=== PATIENT | female | born 1985 ===

== ENCOUNTER 2016-12-29 10:04 | Emergency (ER) | payer OTHER ==
[2016-12-29 10:12] VITALS: BP 110/75; PULSE 74; RESP 14; TEMP 98; O2SAT 98
--- NOTE | 2016-12-29 11:22 | C.PDOC ---
History Of Present Illness 31 y.o female complains of sustaining laceration to left index finger this morning on edge of broken glass. Denies any foreign body sensation, numbness, and bleeding was controlled. Tetanus is not UTD. Time Seen by Provider: 12/29/16 11:02 Chief Complaint (Nursing): Abnormal Skin Integrity History Per: Patient History/Exam Limitations: no limitations Onset/Duration Of Symptoms: Sudden Onset Past Medical History Reviewed: Historical Data, Nursing Documentation, Vital Signs Vital Signs: Last Vital Signs Temp 98 F 12/29/16 10:08 Pulse 74 12/29/16 10:08 Resp 14 12/29/16 10:08 BP 110/75 12/29/16 10:08 Pulse Ox 98 12/29/16 11:22 - Medical History PMH: No Chronic Diseases Family History: States: Unknown Family Hx - Social History Hx Alcohol Use: No Hx Substance Use: No - Immunization History Hx Tetanus Toxoid Vaccination: No Review Of Systems Except As Marked, All Systems Reviewed And Found Negative. Skin: Positive for: Other (laceration) Physical Exam - Physical Exam Appears: Non-toxic, No Acute Distress Skin: Warm, Dry, Other (1cm curved superficial laceration to left second digit fingertip, no active bleeding) Head: Atraumatic, Normacephalic Eye(s): bilateral: Normal Inspection, EOMI Neck: Normal ROM Extremity: Normal ROM, No Tenderness, No Deformity, No Swelling Neurological/Psych: Oriented x3, Normal Speech Gait: Steady ED Course And Treatment O2 Sat by Pulse Oximetry: 98 Laceration - Laceration Repair finger laceration Wound Length (In cm): 1 Description Of Wound: Clean Wound Cleansed With: Sterile Saline Wound Closure: Skin Glue (dermabond) Wound Complexity: Simple Disposition Counseled Patient/Family Regarding: Need For Followup - Disposition Disposition: HOME/ ROUTINE Disposition Time: 11:21 Condition: STABLE Instructions: Skin Adhesive Care (ED) Print Language: LATVIAN - USSANA Present On Arrival: None - Clinical Impression Clinical Impression: Finger laceration
== END 2016-12-29 11:30 | disposition home or self-care (01) ==
LOC: C.ER 10:04
DX: S61.211A Laceration without foreign body of left index finger without damage to nail, initial encounter (principal); W25.XXXA Contact with sharp glass, initial encounter; Y93.89 Activity, other specified; Y92.000 Kitchen of unspecified non-institutional (private) residence as the place of occurrence of the external cause

== ENCOUNTER 2017-03-12 16:12 | Emergency (ER) | payer OTHER ==
[2017-03-12] MEDS ORDERED: Sodium Chloride 0.9% 1,000 ML IV ONE (17:07)
[2017-03-12 17:40] LABS: HCG,QUALITATIVE URINE NEGATIVE (NEGATIVE)
[2017-03-12 17:40] LABS: BASO # 0.1 K/uL (0.0-0.2); BASO % 0.6 % (0.0-2.0); EOS # 0.1 K/uL (0.0-0.7); EOS % 1.1 % (0.0-4.0); HEMOGLOBIN 13.1 g/dL (11.0-16.0); LYMPH # 1.9 K/uL (1.0-4.3); LYMPH % 21.6 % (20.0-40.0); MEAN CELL VOLUME 87.6 fL (81.0-99.0); MEAN CORPUSCULAR HEMOGLOBIN 29.1 pg (27.0-31.0); MEAN CORPUSCULAR HGB CONC 33.2 g/dL (33.0-37.0); MEAN PLATELET VOLUME 10.7 fL (7.2-11.7); MONO # 0.4 K/uL (0.0-0.8); MONO % 4.8 % (0.0-10.0); NEUT # 6.4 K/uL (1.8-7.0); NEUT % 71.9 % (50.0-75.0); RBC 4.48 Mil/uL (3.80-5.20); RED CELL DISTRIBUTION WIDTH 12.9 % (11.5-14.5); WHITE BLOOD COUNT 8.9 K/uL (4.8-10.8)
[2017-03-12 17:41] LABS: BARBITURATES, UR NEGATIVE (NEGATIVE)
[2017-03-12 17:42] LABS: BENZODIAZEPINES, UR NEGATIVE (NEGATIVE)
[2017-03-12 17:43] LABS: SQUAMOUS EPITHIAL 1 /hpf (0-5); URINE BACTERIA RARE (<OCC); URINE BILIRUBIN NEGATIVE (NEGATIVE); URINE BLOOD NEGATIVE (NEGATIVE); URINE CLARITY Clear (Clear); URINE COLOR Yellow (YELLOW); URINE GLUCOSE (UA) NORMAL (Normal); URINE LEUKOCYTE ESTERASE NEG Leu/uL (Negative); URINE NITRATE NEGATIVE (NEGATIVE); URINE PROTEIN NEGATIVE (NEGATIVE); URINE UROBILINOGEN NORMAL mg/dL (0.2-1.0)
[2017-03-12 17:44] LABS: OPIATES, UR NEGATIVE (NEGATIVE)
[2017-03-12 17:45] LABS: PHENCYCLIDINE, UR NEGATIVE (NEGATIVE)
[2017-03-12 17:49] LABS: ALBUMIN 4.3 g/dL (3.5-5.0)
[2017-03-12 17:51] LABS: GFR AFRICAN-AMERICAN > 60; GFR NON-AFRICAN AMERICAN 59
[2017-03-12 17:52] LABS: ALB/GLOB RATIO 1.2 (1.0-2.1); ALT/SGPT 30 U/L (9-52); AST/SGOT 22 U/L (14-36); BLOOD UREA NITROGEN 16 mg/dL (7-17); CALCIUM 9.1 mg/dl (8.6-10.4); LIPASE 57 U/L (23-300)
--- NOTE | 2017-03-12 18:13 | C.PDOC ---
History Of Present Illness 31 y/o female presents to the emergency department with complaints of abdominal cramping and diarrhea which onset this morning. Pt did not take any medications for the pain. Denies fever, chills, abnormal vaginal bleeding, vomiting or any other complaints. She denies consumption of any unusual foods. Time Seen by Provider: 03/12/17 17:01 Chief Complaint (Nursing): Abdominal Pain History Per: Patient History/Exam Limitations: no limitations Onset/Duration Of Symptoms: Hrs Current Symptoms Are (Timing): Still Present Severity: Moderate Location Of Pain/Discomfort: Diffuse Quality Of Discomfort: Cramping Associated Symptoms: Diarrhea. denies: Fever, Chills, Nausea, Vomiting Exacerbating Factors: None Alleviating Factors: None Recent travel outside of the [place]: No Abnormal Vaginal Bleeding: No Past Medical History Reviewed: Historical Data, Nursing Documentation, Vital Signs Vital Signs: Last Vital Signs Temp 98.2 F 03/12/17 16:18 Pulse 82 03/12/17 16:18 Resp 20 03/12/17 16:18 BP 117/82 03/12/17 16:18 Pulse Ox 100 03/12/17 18:15 Family History: States: Unknown Family Hx - Social History Hx Alcohol Use: No Hx Substance Use: No - Immunization History Hx Tetanus Toxoid Vaccination: No Hx Influenza Vaccination: No Hx Pneumococcal Vaccination: No Review Of Systems Except As Marked, All Systems Reviewed And Found Negative. Constitutional: Negative for: Fever, Chills Cardiovascular: Negative for: Chest Pain Respiratory: Negative for: Shortness of Breath Gastrointestinal: Positive for: Abdominal Pain, Diarrhea. Negative for: Nausea , Vomiting Genitourinary: Negative for: Vaginal Bleeding Physical Exam - Physical Exam Appears: Non-toxic, No Acute Distress Skin: Warm, Dry, No Rash Head: Atraumatic, Normacephalic Oral Mucosa: Moist Neck: Normal, Normal ROM, Supple Chest: Symmetrical Cardiovascular: Rhythm Regular Respiratory: Normal Breath Sounds, No Rales, No Rhonchi, No Wheezing Gastrointestinal/Abdominal: Soft, Tenderness (left abdominal), No Guarding, No Rebound Extremity: Normal ROM Extremity: Bilateral: Atraumatic ED Course And Treatment - Laboratory Results Result Diagrams: 03/12/17 17:32 03/12/17 17:32 Lab Interpretation: Normal (ua neg.) Urine POC: Negative O2 Sat by Pulse Oximetry: 100 (room air) Pulse Ox Interpretation: Normal - Radiology CXR: Interpreted by Me CXR Interpretation: Yes: No Acute Disease - Other Rad abd x 2 X-Ray: Interpreted by Me (normal stool/gas, few fluid/gas filled small bowel loops c/w enteritis.) Progress Note: Plan: labs, XR obstructive series, UA, IV fluids, toradol Reevaluation Time: 18:16 Reassessment Condition: Improved Medical Decision Making Medical Decision Making: diarrhea related to last night's dinner/salad, no other sick contacts. Disposition Doctor Will See Patient In The: Office Counseled Patient/Family Regarding: Studies Performed, Diagnosis - Disposition Disposition: HOME/ ROUTINE Disposition Time: 18:16 Condition: GOOD Forms: [facility] (French) - Clinical Impression Clinical Impression: Colicky periumbilical abdominal pain, Diarrhea - Scribe Statement The provider has reviewed the documentation as recorded by the Mervat Curtis Provider Attestation: All medical record entries made by the Indiaibbell were at my direction and personally dictated by me. I have reviewed the chart and agree that the record accurately reflects my personal performance of the history, physical exam, medical decision making, and the department course for this patient. I have also personally directed, reviewed, and agree with the discharge instructions and disposition.
[2017-03-12 18:37] VITALS: BP 108/65; PULSE 80; RESP 18; TEMP 98.3; O2SAT 97
--- NOTE | 2017-03-12 18:40 | RAD ---
PROCEDURE: Radiographs of the chest and abdomen (obstructive series) HISTORY: abd pain COMPARISON: None available. FINDINGS: CHEST: The cardiomediastinal silhouette appears within normal limits. No focal consolidation, significant pleural effusion, or definite pneumothorax identified.Please note that chest x-ray has limited sensitivity for the detection of pulmonary masses. ABDOMEN AND PELVIS: Nonobstructive bowel gas pattern. No definite free air. Mild constipation. No acute osseous abnormality is detected. IMPRESSION: Mild constipation.
== END 2017-03-12 18:39 | disposition home or self-care (01) ==
LOC: C.ER 16:12
DX: R10.84 Generalized abdominal pain (principal); R19.7 Diarrhea, unspecified
CPT/HCPCS: 74022; 80053; 80324; 80345; 80346; 80349; 80353; 80358; 80361; 81001; 83690; 83992; 84703; 85025; 96374; 99284; J1885; J7040

== ENCOUNTER 2017-03-14 19:34 | Inpatient (IN) | payer OTHER ==
[2017-03-14] MEDS ORDERED: Sodium Chloride 0.9% 1,000 ML IV ONE (20:08)
[2017-03-14] MEDS ORDERED: Iohexol 240 (50 ml) PO STA (20:08)
[2017-03-14] MEDS ORDERED: Iodixanol 320 MG/ML 100 ML BOTTLE IV ONE (20:18)
--- NOTE | 2017-03-14 20:21 | C.PDOC ---
History Of Present Illness A 31 y/o F LMP March 01, c/o abdominal pain for the last 2 days. Patient was evaluated 2 days ago for abdominal pain with vomiting and diarrhea. She was diagnosed with enteritis with unremarkable lab work. Reports diffuse abdominal pain that became worse yesterday. Today pain is constant and intractable, but associated with no vomiting or diarrhea. Pain is worse with movement and ambulation. Patient notes pain has never been like this before. Denies chest pain, SOB, vaginal bleeding, discharge, fever, chills, dysuria, or any other complaints. Time Seen by Provider: 03/14/17 20:04 Chief Complaint (Nursing): Abdominal Pain History Per: Patient History/Exam Limitations: no limitations Onset/Duration Of Symptoms: Days, Persistent, Worse Since (Yesterday) Current Symptoms Are (Timing): Still Present Severity: Moderate Location Of Pain/Discomfort: Diffuse Radiation Of Pain To:: None Quality Of Discomfort: "Pain" Associated Symptoms: denies: Nausea, Vomiting Exacerbating Factors: Movement, Walking Recent travel outside of the [place]: No Additional History Per: Patient Abnormal Vaginal Bleeding: No Past Medical History Reviewed: Historical Data, Nursing Documentation, Vital Signs Vital Signs: Last Vital Signs Temp 98.8 F 03/14/17 19:44 Pulse 112 H 03/14/17 19:44 Resp 20 03/14/17 19:44 BP 116/77 03/14/17 19:44 Pulse Ox 100 03/14/17 23:13 Family History: States: Unknown Family Hx - Social History Hx Alcohol Use: No Hx Substance Use: No - Immunization History Hx Tetanus Toxoid Vaccination: No Hx Influenza Vaccination: No Hx Pneumococcal Vaccination: No Review Of Systems Except As Marked, All Systems Reviewed And Found Negative. Constitutional: Negative for: Fever, Chills Cardiovascular: Negative for: Chest Pain Respiratory: Negative for: Shortness of Breath Gastrointestinal: Positive for: Abdominal Pain. Negative for: Vomiting, Diarrhea Genitourinary: Negative for: Dysuria, Vaginal Discharge, Vaginal Bleeding Physical Exam - Physical Exam Appears: Non-toxic, In Acute Distress (Significant discomfort) Skin: Warm, Dry Head: Atraumatic, Normacephalic Cardiovascular: Rhythm Regular Respiratory: Normal Breath Sounds, No Accessory Muscle Use, No Rales, No Rhonchi , No Wheezing Gastrointestinal/Abdominal: Bowel Sounds (Hypoactive), Tenderness (Diffuse tenderness), Distention, Guarding, Rebound Back: No CVA Tenderness Neurological/Psych: Oriented x3, Normal Speech, Normal Cognition ED Course And Treatment - Laboratory Results Result Diagrams: 03/14/17 20:25 03/14/17 20:25 Lab Interpretation: Abnormal (Elevated WBC with left shift.) O2 Sat by Pulse Oximetry: 100 (RA) Pulse Ox Interpretation: Normal - CT Scan/US CT abd/pel Other Rad Studies (CT/US): Read By Radiologist, Radiology Report Reviewed CT/US Interpretation: EXAM: CT Abdomen and Pelvis With Intravenous Contrast. CLINICAL HISTORY: 31 years old, female; Pain; Abdominal pain; Flank; Right lower quadrant (rlq); Additional info: Abd. pain. TECHNIQUE: Axial computed tomography images of the abdomen and pelvis with intravenous contrast. This CT. exam was performed using one or more of the following dose reduction techniques: automated. exposure control, adjustment of the mA and/or kV according to patient size, and/or use of iterative. reconstruction technique. Coronal and sagittal reformatted images were created and reviewed. CONTRAST: 100 mL of VISIPAQUE 320 administered intravenously. COMPARISON: No relevant prior studies available. FINDINGS: Lower thorax: No acute findings. ABDOMEN: Liver: Unremarkable. No mass. Gallbladder and bile ducts: No calcified stones. No ductal dilation. Pancreas: No ductal dilation. No mass. Spleen: No splenomegaly. Adrenals: No mass. Kidneys and ureters: No mass. No hydronephrosis. Stomach and bowel: No definite mural thickening. No obstruction. Appendix: Enlarged appendix, measuring up to 1.0 cm in diameter. Mucosal enhancement. Moderate stranding/fluid about appendix. Few tiny extraluminal foci of air about appendix. PELVIS: Bladder: Unremarkable. Reproductive: Unremarkable as visualized. ABDOMEN and PELVIS: Intraperitoneal space: Small free fluid within pelvis. Bones/joints: No acute fracture. Soft tissues: Injection granulomas within gluteal soft tissues. Vasculature: Lateral course of LEFT gonadal vein. Retroaortic LEFT renal vein. No aneurysm. Lymph nodes: No pathologically enlarged lymph nodes. IMPRESSION: 1. Acute appendicitis with perforation. 2. Incidental/non-acute findings are described above. - Physician Consult Information Physician Contacted: Robert Magdaleno Outcome Of Conversation: Patient to be admitted for appendicitis. Medical Decision Making Medical Decision Making: Impression: A 31 y/o F LMP March 01, c/o abdominal pain for the last 2 days. Pain is constant and intractable. Plans: * CT Abd w/ contrast * Blood work up * Omnipaque * Morphine * IV fluids * UA Disposition - Disposition Disposition: HOSPITALIZED Disposition Time: 00:06 Condition: STABLE - POA Present On Arrival: None - Clinical Impression Clinical Impression: Appendicitis - Scribe Statement The provider has reviewed the documentation as recorded by the Scribe Logan rivas All medical record entries made by the Indiaibe were at my direction and personally dictated by me. I have reviewed the chart and agree that the record accurately reflects my personal performance of the history, physical exam, medical decision making, and the department course for this patient. I have also personally directed, reviewed, and agree with the discharge instructions and disposition.
[2017-03-14] MEDS ORDERED: Morphine 4 MG/ML VIAL ONE ×2 (20:29→23:59)
[2017-03-14 20:30] LABS: BASO # 0.1 K/uL (0.0-0.2); BASO % 0.4 % (0.0-2.0); EOS % 0.1 % (0.0-4.0); HEMOGLOBIN 12.1 g/dL (11.0-16.0); LYMPH # 0.9 K/uL (1.0-4.3); LYMPH % 7.3 % (20.0-40.0); MEAN CELL VOLUME 86.4 fL (81.0-99.0); MEAN CORPUSCULAR HEMOGLOBIN 29.5 pg (27.0-31.0); MEAN CORPUSCULAR HGB CONC 34.1 g/dL (33.0-37.0); MEAN PLATELET VOLUME 10.8 fL (7.2-11.7); MONO # 0.5 K/uL (0.0-0.8); MONO % 4.4 % (0.0-10.0); NEUT # 10.4 K/uL (1.8-7.0); NEUT % 87.8 % (50.0-75.0); PLATELET COUNT 160 K/uL (130-400); RBC 4.12 Mil/uL (3.80-5.20); RED CELL DISTRIBUTION WIDTH 12.4 % (11.5-14.5); WHITE BLOOD COUNT 11.9 K/uL (4.8-10.8)
[2017-03-14 20:31] LABS: SQUAMOUS EPITHIAL 8 /hpf (0-5); URINE BACTERIA OCC (<OCC); URINE BILIRUBIN NEGATIVE (NEGATIVE); URINE BLOOD NEGATIVE (NEGATIVE); URINE CLARITY Hazy (Clear); URINE COLOR Yellow (YELLOW); URINE GLUCOSE (UA) 1+ mg/dL (Normal); URINE LEUKOCYTE ESTERASE TRACE Leu/uL (Negative); URINE NITRATE NEGATIVE (NEGATIVE); URINE PROTEIN 1+ mg/dL (NEGATIVE); URINE UROBILINOGEN NORMAL mg/dL (0.2-1.0)
[2017-03-14] MEDS ORDERED: Iohexol 240 (50 ml) ONE (20:35)
[2017-03-14 20:39] LABS: HCG,QUALITATIVE URINE NEGATIVE (NEGATIVE)
[2017-03-14 21:23] LABS: ALBUMIN 3.9 g/dL (3.5-5.0)
[2017-03-14 21:26] LABS: ALB/GLOB RATIO 1.1 (1.0-2.1); ALT/SGPT 27 U/L (9-52); AST/SGOT 30 U/L (14-36); BLOOD UREA NITROGEN 9 mg/dL (7-17); GFR AFRICAN-AMERICAN > 60; GFR NON-AFRICAN AMERICAN > 60
[2017-03-14 21:27] LABS: CALCIUM 8.7 mg/dl (8.6-10.4); LIPASE 22 U/L (23-300)
[2017-03-14 22:03] LABS: BANDS 3 % (0-2); MONOCYTE 3 % (0-10); TOTAL CELLS COUNTED 100
[2017-03-14 22:04] LABS: LYMPHOCYTE 4 % (20-40); NEUTROPHIL 90 % (50-75)
[2017-03-14 22:06] LABS: PLATELET ESTIMATE NORMAL (NORMAL)
[2017-03-14 22:07] LABS: HYPOCHROMIC SLIGHT; LARGE PLATELETS PRESENT
--- NOTE | 2017-03-14 22:42 | CT ---
EXAM: CT Abdomen and Pelvis With Intravenous Contrast CLINICAL HISTORY: 31 years old, female; Pain; Abdominal pain; Flank; Right lower quadrant (rlq); Additional info: Abd pain TECHNIQUE: Axial computed tomography images of the abdomen and pelvis with intravenous contrast. This CT exam was performed using one or more of the following dose reduction techniques: automated exposure control, adjustment of the mA and/or kV according to patient size, and/or use of iterative reconstruction technique. Coronal and sagittal reformatted images were created and reviewed. CONTRAST: 100 mL of VISIPAQUE 320 administered intravenously. COMPARISON: No relevant prior studies available. FINDINGS: Lower thorax: No acute findings. ABDOMEN: Liver: Unremarkable. No mass. Gallbladder and bile ducts: No calcified stones. No ductal dilation. Pancreas: No ductal dilation. No mass. Spleen: No splenomegaly. Adrenals: No mass. Kidneys and ureters: No mass. No hydronephrosis. Stomach and bowel: No definite mural thickening. No obstruction. Appendix: Enlarged appendix, measuring up to 1.0 cm in diameter. Mucosal enhancement. Moderate stranding/fluid about appendix. Few tiny extraluminal foci of air about appendix. PELVIS: Bladder: Unremarkable. Reproductive: Unremarkable as visualized. ABDOMEN and PELVIS: Intraperitoneal space: Small free fluid within pelvis. Bones/joints: No acute fracture. Soft tissues: Injection granulomas within gluteal soft tissues. Vasculature: Lateral course of LEFT gonadal vein. Retroaortic LEFT renal vein. No aneurysm. Lymph nodes: No pathologically enlarged lymph nodes. IMPRESSION: 1. Acute appendicitis with perforation. 2. Incidental/non-acute findings are described above.
[2017-03-14] MEDS ORDERED: Ciprofloxacin 400mg/200ml D5W 400 MG/200 ML BAG IV STA (22:58)
[2017-03-14] MEDS ORDERED: metroNIDAZOLE IV 500 mg/100 ml 500 MG/100 ML BAG IV SCH (23:00)
[2017-03-14] MEDS ORDERED: Ciprofloxacin 400mg/200ml D5W 400 MG/200 ML BAG IVPB ONE (23:14)
[2017-03-14] MEDS ORDERED: metroNIDAZOLE IV 500 mg/100 ml 500 MG/100 ML BAG ONE (23:14)
[2017-03-14] MEDS ORDERED: metroNIDAZOLE IV 500 mg/100 ml 500 MG/100 ML BAG IVPB STA (23:48)
[2017-03-15] MEDS: Sodium Chloride 0.9% 1,000 ML IV SCH ×3 (01:33→17:00)
[2017-03-15] MEDS ORDERED: Morphine 4 MG/ML VIAL IV ONE (05:51)
[2017-03-15] MEDS: Ciprofloxacin 400mg/200ml D5W 400 MG/200 ML BAG IVPB SCH ×2 (09:30→22:10)
[2017-03-15] MEDS: metroNIDAZOLE IV 500 mg/100 ml 500 MG/100 ML BAG IVPB SCH ×2 (11:11→18:22)
[2017-03-15] MEDS ORDERED: Lactated Ringer's 1,000 ML IV ONE (11:50)
[2017-03-15] MEDS ORDERED: Midazolam 2 MG/2 ML VIAL ONE (11:56)
[2017-03-15] MEDS ORDERED: Propofol 10 mg/ml Inj (20 ML) ONE (11:56)
[2017-03-15] MEDS ORDERED: Morphine 4 MG/ML VIAL ONE (12:43)
[2017-03-15] MEDS ORDERED: HYDROmorphone 0.5 mg/0.5 ml ISec ONE (12:55)
[2017-03-15] MEDS: HYDROmorphone 0.5 mg/0.5 ml ISec IVP PRN ×2 (12:56→13:29)
--- NOTE | 2017-03-15 14:36 | OP ---
PROCEDURE DATE: 03/15/2017 PREOPERATIVE DIAGNOSIS: Perforated appendicitis. POSTOPERATIVE DIAGNOSIS: Perforated appendicitis with abdominal collection. PROCEDURE: Appendectomy, drainage of abdominal abscess with repair of sheath. SURGEON: Robert Magdaleno MD ANESTHESIA: General. BLOOD LOSS: 30 mL. POSTOP CONDITION: Stable. INDICATION FOR SURGERY: This is a 31-year-old female who presented to the emergency room noted to have a CAT scan showing pseudoappendicitis with perforation. She was taken to the OR for urgent appendectomy. CLOSE FINDINGS: The appendix was perforated at its distal tip that was associated with small abdominal abscess and collection which was drained upon entering the abdomen. A tear at the base with the cecum was pared with double layers of chromic and silk. PROCEDURE: The patient was taken to the operating room and general anesthesia was administered and the abdomen was prepped and draped, the abdomen was entered to transverse muscle splitting incision in the right lower quadrant. The above findings were noted. The abdominal collection was drained and cultured. The appendix was delivered into the wound and the mesoappendix was tried to divided between clamps using . The base of the appendix was divided using a TA 30 stapler. A tear in the sheath lateral to this is a result of this deliverance of the appendix into the wound was pared 2 layers of chromic and silk. The abdomen was irrigated with 5 liters of warm saline solution and the muscle layers were closed with a running heavy Vicryl suture. Subcutaneous tissue was irrigated with a warm liter of solution and then closed in layers with Monocryl and subcuticular Monocryl in the skin. The patient tolerated the procedure well and returned to recovery room in stable condition. Robert Magdaleno MD
--- NOTE | 2017-03-15 18:41 | CP.PCM.CON ---
History of Present Illness - History of Present Illness History of Present Illness: A 31 y/o F LMP March 01, c/o abdominal pain for the last 2 days. Patient was evaluated 2 days ago for abdominal pain with vomiting and diarrhea. She was diagnosed with enteritis with unremarkable lab work. Reports diffuse abdominal pain that became worse yesterday. underwent appendectomy ID consulted for IV antibiotics Review of Systems - Constitutional Constitutional: As Per HPI, Anorexia, Chills, Fever, Malaise - EENT Eyes: absent: As Per HPI, Blind Spots, Blurred Vision, Change in Vision, Decreased Night Vision, Diplopia, Discharge, Dry Eye, Exophthalmos, Floaters, Irritation, Itchy Eyes, Loss of Peripheral Vision, Pain, Photophobia, Requires Corrective Lenses, Sees Flashes, Spots in Vision, Tunnel Vision, Other Visual Disturbances, Loss of Vision, Other Ears: absent: As Per HPI, Decreased Hearing, Ear Discharge, Ear Pain, Tinnitus, Abnormal Hearing, Disequilibrium, Dizziness, Other Nose/Mouth/Throat: absent: As Per HPI, Epistaxis, Nasal Congestion, Nasal Discharge, Nasal Obstruction, Nasal Trauma, Nose Pain, Post Nasal Drip, Sinus Pain, Sinus Pressure, Bleeding Gums, Change in Voice, Dental Pain, Dry Mouth, Dysphagia, Halitosis, Hoarsness, Lip Swelling, Mouth Lesions, Mouth Pain, Odynophagia, Sore Throat, Throat Swelling, Tongue Swelling, Facial Pain, Neck Pain, Neck Mass, Other - Breasts Breasts: absent: As Per HPI, Change in Shape, Mass, Pain, Nipple Discharge, Nipple Inversion, Skin Changes, Swelling, Other - Cardiovascular Cardiovascular: absent: As Per HPI, Acrocyanosis, Chest Pain, Chest Pain at Rest , Chest Pain with Activity, Claudication, Diaphoresis, Dyspnea, Dyspnea on Exertion, Edema, Irregular Heart Rhythm, Pain Radiating to Arm/Neck/Jaw, Leg Edema, Leg Ulcers, Lightheadedness, Orthopnea, Palpitations, Paroxysmal Nocturnal Dyspnea, Pedal Edema, Radiating Pain, Rapid Heart Rate, Slow Heart Rate, Syncope, Other - Respiratory Respiratory: absent: As Per HPI, Cough, Dyspnea, Hemoptysis, Dyspnea on Exertion , Wheezing, Snoring, Stridor, Pain on Inspiration, Chest Congestion, Excessive Mucous Production, Change in Mucous Color, Pain with Coughing, Other - Gastrointestinal Gastrointestinal: As Per HPI - Genitourinary Genitourinary: absent: As Per HPI, Change in Urinary Stream, Difficulty Urinating, Dysuria, Flank Pain, Hematuria, Pyuria, Nocturia, Urinary Incontinence, Urinary Frequency, Urinary Hesitance, Urinary Urgency, Voiding Freq/Small Amts, Freq UTI, Hx Renal/Bladder Calculi, Hx /Renal Surgery, Bladder Distension, Other - Reproductive: Female Reproductive:Female: absent: As Per HPI, Amenorrhea, Amenorrhea/ Control, Currently Menstual, Cycle <21 Days, Cycle >35 Days, Cycle Variable, Menses 1-7 Days, Menses >/= 8 Days, Menses Variable, Cycle > 4 Weeks Between, No Menses for 6 Months, Heavy Menses, Light Menses, Normal Menses, Spotting Between Cycles , S/P Hysterectomy, Menopausal, Post Menopausal, Premenarche, Abnormal Vaginal Bleeding, Dysmenorrhea, Dyspareunia, Genital Lesions, Genital Pruritis, Pelvic Pain, Prolapse Symptoms, Sexual Dysfunction, Vaginal Discharge, Vaginal Dryness , Vaginal Odor, Vaginal Pruritis, Other - Menstruation Menstruation: absent: As Per HPI, Amenorrhea, Amenorrhea/ Control, Currently Menstual, Cycle <21 Days, Cycle >35 Days, Cycle Variable, Menses 1-7 Days, Menses >/= 8 Days, Menses Variable, Cycle > 4 Weeks Between, No Menses for 6 Months, Heavy Menses, Light Menses, Normal Menses, Spotting Between Cycles , S/P Hysterectomy, Menopausal, Post Menopausal, Premenarche, Abnormal Vaginal Bleeding, Dysmenorrhea, Other - Musculoskeletal Musculoskeletal: absent: As Per HPI, Abnormal Gait, Arthralgias, Atrophy, Back Pain, Deformity, Joint Swelling, Limited Range of Motion, Loss of Height, Muscle Cramps, Muscle Weakness, Myalgias, Neck Pain, Numbness, Radiating Pain into Limb, Stiffness, Tingling, Other - Integumentary Integumentary: absent: As Per HPI, Acne, Alopecia, Bleeding Lesions, Change in Hair, Change in Nails, Change in Pigmentation, Changing Lesions, Dry Skin, Erythema, Furuncle, Hirsutism, Lesions, New Lesions, Non-Healing Lesions, Photosensitivity, Pruritus, Rash, Skin Pain, Skin Ulcer, Sores, Striae, Swelling , Unusual Bruising, Wounds, Jaundice, Other - Neurological Neurological: absent: As Per HPI, Abnormal Gait, Abnormal Hearing, Abnormal Movements, Abnormal Speech, Behavioral Changes, Burning Sensations, Confusion, Convulsions, Disequilibrium, Dizziness, Numbness, Focal Weakness, Frequent Falls , Headaches, Lack of Coordination, Loss of Vision, Memory Loss, Paresthesias, Radicular Pain, Restless Legs, Sensory Deficit, Syncope, Tingling, Tremor, Vertigo, Weakness, Other Visual Disturbances, Other - Psychiatric Psychiatric: absent: As Per HPI, Abnormal Sleep Pattern, Anhedonia, Anxiety, Auditory Hallucinations, Behavioral Changes, Change in Appetite, Change in Libido, Confusion, Depression, Difficulty Concentrating, Hallucinations, Homicidal Ideation, Hopelessness, Irritability, Memory Loss, Mood Swings, Panic Attacks, Paranoia, Suicidal Ideation, Visual Hallucinations, Tactile Hallucinations, Other - Endocrine Endocrine: absent: As Per HPI, Change in Body Appearance, Change in Libido, Cold Intolorance, Deepening of Voice, Excessive Sweating, Fatigue, Flushing, Heat Intolorance, Increase in Ring/Shoe/Hat Size, Palpitations, Polydipsia, Polyphagia, Polyuria, Other - Hematologic/Lymphatic Hematologic: absent: As Per HPI, Easy Bleeding, Easy Bruising, Lymphadenopathy, Other Past Patient History - Past Medical History & Family History Past Medical History?: Yes - Past Social History Smoking Status: Never Smoked - MUSCULOSKELETAL/RHEUMATOLOGICAL Hx Falls: No - PSYCHIATRIC Hx Substance Use: No - SURGICAL HISTORY Hx Surgeries: No Other/Comment: back surgery - ANESTHESIA Hx Anesthesia: Yes Hx Anesthesia Reactions: No Meds Allergies/Adverse Reactions: Allergies Allergy/AdvReac Type Severity Reaction Status Date / Time Penicillins Allergy RASH Verified 03/14/17 19:49 - Medications Medications: Current Medications Sodium Chloride (Sodium Chloride 0.9%) 1,000 mls @ 100 mls/hr IV .Q10H [facility] Last Admin: 03/15/17 12:30 Dose: Not Given Ciprofloxacin (Cipro 400mg/200ml Dsw) 400 mg in 200 mls @ 133 mls/hr IVPB Q12H [facility] Last Admin: 03/15/17 09:30 Dose: 133 mls/hr Metronidazole (Flagyl) 500 mg in 100 mls @ 100 mls/hr IVPB Q8H [facility] Last Admin: 03/15/17 18:22 Dose: 100 mls/hr Ondansetron HCl (Zofran Inj) 4 mg IVP DAILY@ONCE PRN PRN Reason: nausea Oxycodone/Acetaminophen (Percocet 5/325 Mg Tab) 2 tab PO Q4H PRN PRN Reason: pain Stop: 03/18/17 13:12 Pneumococcal Polyvalent Vaccine (Pneumovax 23 Vaccine) 0.5 ml IM .ONCE ONE Stop: 03/16/17 10:01 Physical Exam - Constitutional Appears: Non-toxic, Chronically Ill - Head Exam Head Exam: NORMOCEPHALIC - Eye Exam Eye Exam: PERRL. absent: Scleral icterus - ENT Exam ENT Exam: Mucous Membranes Dry, Normal External Ear Exam - Neck Exam Neck exam: Negative for: Lymphadenopathy - Respiratory Exam Respiratory Exam: Decreased Breath Sounds, Clear to Auscultation Bilateral - Cardiovascular Exam Cardiovascular Exam: REGULAR RHYTHM - GI/Abdominal Exam GI & Abdominal Exam: Diminished Bowel Sounds, Distended, Guarding, Rebound, Soft , Tenderness. absent: Rigid - Rectal Exam Rectal Exam: Deferred - Exam Exam: NORMAL INSPECTION - Extremities Exam Extremities exam: Negative for: calf tenderness, pedal edema - Back Exam Back exam: absent: CVA tenderness (L), CVA tenderness (R) - Neurological Exam Neurological exam: Alert, CN II-XII Intact, Oriented x3, Reflexes Normal - Psychiatric Exam Psychiatric exam: Normal Mood - Skin Skin Exam: Dry Results - Vital Signs Recent Vital Signs: Last Vital Signs Temp 98.2 F 03/15/17 15:40 Pulse 92 H 03/15/17 15:40 Resp 20 03/15/17 15:40 BP 116/66 03/15/17 15:40 Pulse Ox 100 03/15/17 15:40 - Labs Result Diagrams: 03/14/17 20:25 03/14/17 20:25 Assessment & Plan (1) Appendicitis Status: Acute - Assessment and Plan (Free Text) Assessment: cont iv flagyl/ cipro surgical follow up
[2017-03-15] MEDS: Oxycodone/Acetaminophen 5/325 mg Tab PO PRN (22:07)
[2017-03-16] MEDS: metroNIDAZOLE IV 500 mg/100 ml 500 MG/100 ML BAG IVPB SCH ×3 (01:41→18:08)
[2017-03-16] MEDS: Oxycodone/Acetaminophen 5/325 mg Tab PO PRN ×2 (04:32→20:20)
[2017-03-16] MEDS ORDERED: Benzocaine/Menthol (Cepacol) Lozenge MT ONE (05:39)
[2017-03-16] MEDS: Sodium Chloride 0.9% 1,000 ML IV SCH ×2 (06:09→18:00)
[2017-03-16] MEDS: Ciprofloxacin 400mg/200ml D5W 400 MG/200 ML BAG IVPB SCH ×2 (08:21→20:21)
[2017-03-16] MEDS ORDERED: Pneumococcal 23-Valent Vaccine IM ONE (10:00)
[2017-03-16 17:06] LABS: BASO % 0.1 % (0.0-2.0); EOS % 0.2 % (0.0-4.0); LYMPH # 0.7 K/uL (1.0-4.3); LYMPH % 8.5 % (20.0-40.0); MEAN CELL VOLUME 87.7 fL (81.0-99.0); MEAN CORPUSCULAR HEMOGLOBIN 29.5 pg (27.0-31.0); MEAN CORPUSCULAR HGB CONC 33.6 g/dL (33.0-37.0); MEAN PLATELET VOLUME 10.8 fL (7.2-11.7); MONO # 0.7 K/uL (0.0-0.8); MONO % 7.8 % (0.0-10.0); NEUT # 7.1 K/uL (1.8-7.0); NEUT % 83.4 % (50.0-75.0); RED CELL DISTRIBUTION WIDTH 12.3 % (11.5-14.5); WHITE BLOOD COUNT 8.5 K/uL (4.8-10.8)
[2017-03-16 17:12] LABS: ALB/GLOB RATIO 0.9 (1.0-2.1); AST/SGOT 16 U/L (14-36); GFR AFRICAN-AMERICAN > 60; GFR NON-AFRICAN AMERICAN > 60
[2017-03-16 17:13] LABS: ALT/SGPT 29 U/L (9-52); BLOOD UREA NITROGEN 8 mg/dL (7-17); CALCIUM 7.9 mg/dl (8.6-10.4)
[2017-03-16 17:17] LABS: PLATELET COUNT 124 K/uL (130-400)
[2017-03-16 17:56] LABS: BANDS 10 % (0-2); EOSINOPHIL 1 % (0-4); LYMPHOCYTE 12 % (20-40); MONOCYTE 4 % (0-10); NEUTROPHIL 73 % (50-75); TOTAL CELLS COUNTED 100
[2017-03-16 17:57] LABS: MICROCYTOSIS SLIGHT; PLATELET ESTIMATE SLIGHTLY DECREASED (NORMAL)
[2017-03-16 17:58] LABS: GIANT PLATELETS PRESENT; HYPOCHROMIC SLIGHT; LARGE PLATELETS PRESENT
--- NOTE | 2017-03-16 18:35 | CP.PCM.PN ---
Subjective - Date & Time of Evaluation Date of Evaluation: 03/16/17 Time of Evaluation: 08:00 - Subjective Subjective: c/o pain and dark urine abd soft but tender rlq incision site healing well dr jaeger aware may need repeat ct abd Objective - Vital Signs/Intake and Output Vital Signs (last 24 hours): Temp Pulse Resp BP Pulse Ox 98.4 F 77 18 104/67 100 03/16/17 15:33 03/16/17 15:33 03/16/17 15:33 03/16/17 15:33 03/16/17 15:33 Intake and Output: 03/16/17 03/16/17 06:59 18:59 Intake Total 1570 1200 Balance 1570 1200 - Medications Medications: Current Medications Sodium Chloride (Sodium Chloride 0.9%) 1,000 mls @ 100 mls/hr IV .Q10H [facility] Last Admin: 03/16/17 06:09 Dose: 100 mls/hr Ciprofloxacin (Cipro 400mg/200ml Dsw) 400 mg in 200 mls @ 133 mls/hr IVPB Q12H [facility] Last Admin: 03/16/17 08:21 Dose: 133 mls/hr Metronidazole (Flagyl) 500 mg in 100 mls @ 100 mls/hr IVPB Q8H [facility] Last Admin: 03/16/17 18:08 Dose: 100 mls/hr Ondansetron HCl (Zofran Inj) 4 mg IVP DAILY@ONCE PRN PRN Reason: nausea Last Admin: 03/16/17 09:29 Dose: 4 mg Oxycodone/Acetaminophen (Percocet 5/325 Mg Tab) 2 tab PO Q4H PRN PRN Reason: pain Stop: 03/18/17 13:12 Last Admin: 03/16/17 04:32 Dose: 2 tab - Labs Labs: 03/16/17 16:57 03/16/17 16:57 - Constitutional Appears: Non-toxic, Chronically Ill - Head Exam Head Exam: NORMOCEPHALIC - Eye Exam Eye Exam: PERRL - ENT Exam ENT Exam: Mucous Membranes Dry - Neck Exam Neck Exam: absent: Lymphadenopathy - Respiratory Exam Respiratory Exam: Decreased Breath Sounds - Cardiovascular Exam Cardiovascular Exam: REGULAR RHYTHM - GI/Abdominal Exam GI & Abdominal Exam: Distended, Soft, Tenderness - Rectal Exam Rectal Exam: Deferred Assessment and Plan (1) Appendicitis Status: Acute - Assessment and Plan (Free Text) Plan: cont rx
[2017-03-17 01:33] VITALS: RESP 20; O2SAT 97
[2017-03-17] MEDS: metroNIDAZOLE IV 500 mg/100 ml 500 MG/100 ML BAG IVPB SCH ×2 (02:05→11:20)
[2017-03-17] MEDS: Sodium Chloride 0.9% 1,000 ML IV SCH ×2 (02:09→13:07)
[2017-03-17] MEDS: Oxycodone/Acetaminophen 5/325 mg Tab PO PRN ×3 (04:32→13:04)
[2017-03-17 06:38] LABS: BASO % 0.2 % (0.0-2.0); EOS % 0.2 % (0.0-4.0); HEMOGLOBIN 10.5 g/dL (11.0-16.0); LYMPH % 13.6 % (20.0-40.0); MEAN CELL VOLUME 87.8 fL (81.0-99.0); MEAN CORPUSCULAR HEMOGLOBIN 29.1 pg (27.0-31.0); MEAN CORPUSCULAR HGB CONC 33.1 g/dL (33.0-37.0); MEAN PLATELET VOLUME 10.3 fL (7.2-11.7); MONO # 0.5 K/uL (0.0-0.8); MONO % 6.2 % (0.0-10.0); NEUT # 5.9 K/uL (1.8-7.0); NEUT % 79.8 % (50.0-75.0); RBC 3.61 Mil/uL (3.80-5.20); RED CELL DISTRIBUTION WIDTH 12.5 % (11.5-14.5); WHITE BLOOD COUNT 7.4 K/uL (4.8-10.8)
[2017-03-17 08:35] VITALS: BP 104/67; PULSE 108
[2017-03-17] MEDS: Ciprofloxacin 400mg/200ml D5W 400 MG/200 ML BAG IVPB SCH (08:41)
[2017-03-17] MEDS ORDERED: Magnesium Hydroxide Susp 30 ml UD PO ONE (14:41)
[2017-03-17 15:45] VITALS: TEMP 98.2
== END 2017-03-17 16:14 | disposition home or self-care (01) | DRG 165 ==
LOC: C.ER 19:34 → C.3T 23:06 → C.9E 23:46 → C.6T 03-15 00:07
PROVIDERS: ADMIT Surgery; ATTEND Surgery
PROC: 0W9G0ZZ Drainage of Peritoneal Cavity, Open Approach (ICD-10-PCS; 2017-03-15)
PROC: 0DTJ0ZZ Resection of Appendix, Open Approach (ICD-10-PCS; principal; 2017-03-15 11:00)
DX: K35.2 Acute appendicitis with generalized peritonitis (principal); Z88.0 Allergy status to penicillin

== ENCOUNTER 2017-03-19 17:46 | Inpatient (IN) | payer OTHER ==
[2017-03-19] MEDS ORDERED: Sodium Chloride 0.9% 1,000 ML IV ONE (18:23)
[2017-03-19] MEDS ORDERED: Sodium Chloride 0.9% 1,000 ML ONE (18:52)
[2017-03-19 18:56] LABS: BASO % 0.5 % (0.0-2.0); EOS # 0.1 K/uL (0.0-0.7); EOS % 0.8 % (0.0-4.0); LYMPH # 1.1 K/uL (1.0-4.3); LYMPH % 12.4 % (20.0-40.0); MEAN CELL VOLUME 86.1 fL (81.0-99.0); MEAN CORPUSCULAR HEMOGLOBIN 29.3 pg (27.0-31.0); MEAN PLATELET VOLUME 8.7 fL (7.2-11.7); MONO # 0.6 K/uL (0.0-0.8); MONO % 7.1 % (0.0-10.0); RED CELL DISTRIBUTION WIDTH 12.7 % (11.5-14.5)
[2017-03-19 19:00] LABS: RBC URINE < 1 /hpf (0-3); URINE BILIRUBIN NEGATIVE (NEGATIVE); URINE BLOOD NEGATIVE (NEGATIVE); URINE COLOR Yellow (YELLOW); URINE GLUCOSE (UA) NORMAL (Normal); URINE KETONE NEGATIVE (NEGATIVE); URINE LEUKOCYTE ESTERASE NEG Leu/uL (Negative); URINE PROTEIN NEGATIVE (NEGATIVE); URINE UROBILINOGEN NORMAL mg/dL (0.2-1.0); WBC URINE < 1 /hpf (0-5)
[2017-03-19 19:10] LABS: CHLORIDE 94 mmol/L (98-107); POTASSIUM 3.7 mmol/L (3.6-5.2); SODIUM 136 mmol/L (132-148)
[2017-03-19 19:12] LABS: ALB/GLOB RATIO 0.9 (1.0-2.1); ALKALINE PHOSPHATASE 67 U/L (38-126); AST/SGOT 21 U/L (14-36); BILIRUBIN,TOTAL 0.5 mg/dL (0.2-1.3); BLOOD UREA NITROGEN 8 mg/dL (7-17); CARBON DIOXIDE 29 mmol/L (22-30); GFR AFRICAN-AMERICAN > 60; TOTAL PROTEIN 6.5 g/dL (6.3-8.3)
[2017-03-19 19:13] LABS: ALT/SGPT 32 U/L (9-52); CALCIUM 8.4 mg/dl (8.6-10.4); GLUCOSE,RANDOM 103 mg/dL (65-105)
[2017-03-19] MEDS ORDERED: Iohexol 240 (50 ml) PO STA (19:20)
[2017-03-19] MEDS ORDERED: Iohexol 240 (50 ml) ONE (19:56)
[2017-03-19] MEDS ORDERED: Iodixanol 320 MG/ML 100 ML BOTTLE IV ONE (20:30)
--- NOTE | 2017-03-19 22:54 | CT ---
EXAM: CT Abdomen and Pelvis With Intravenous Contrast CLINICAL HISTORY: 31 years old, female; Pain; Abdominal pain; Flank; Right lower quadrant (rlq); Additional info: Abd pain S/P appendectomy TECHNIQUE: Axial computed tomography images of the abdomen and pelvis with intravenous contrast. This CT exam was performed using one or more of the following dose reduction techniques: automated exposure control, adjustment of the mA and/or kV according to patient size, and/or use of iterative reconstruction technique. Coronal and sagittal reformatted images were created and reviewed. CONTRAST: 100 mL of VISIPAQUE 320 administered intravenously. COMPARISON: CT - ABD PELVIS PO IV CONTRAST 03/14/2017 10:05:04 PM FINDINGS: Lower thorax: Bilateral pleural effusions, with bibasilar consolidation (left greater than right). This is an interval change from previous examination performed 03/14/2017. ABDOMEN: Liver: No acute findings. Gallbladder and bile ducts: The gallbladder is only minimally distended, without calcified stones. Layering sludge is identified. No significant intra- or extrahepatic biliary ductal dilation. Pancreas: Enhances homogeneously. No ductal dilation. No discrete mass. Spleen: No acute findings. Adrenals: No acute findings. Kidneys and ureters: Right-sided hydroureteronephrosis, secondary to inflammatory process within the right lower quadrant. PELVIS: Bladder: The bladder is minimally distended, with thickened chávez. Reproductive: An involuting cyst is identified within the right ovary, measuring 18 mm in greatest dimension. Appendix: Perioperative changes identified within the right lower quadrant. Subtle foci of extraluminal air are detected, possibly perioperative. This is best identified on series 3, image 154. No discrete rim-enhancing (drainable) fluid collection is identified. ABDOMEN and PELVIS: Stomach and bowel: As above. Peritoneum: As above. Lymph nodes: Multiple minimally enlarged lymph nodes are identified within the pelvis, within the retroperitoneum as well as within the mesentery. Vasculature: Unremarkable. Bones: No acute fracture. IMPRESSION: Perioperative phlegmonous change within the right lower quadrant, without a drainable fluid collection. Mass effect on the distal ureter is identified, causing right-sided hydroureteronephrosis. Involuting 18 mm cyst within the right ovary. Interval development of bilateral pleural effusions with bibasilar consolidation.
--- NOTE | 2017-03-20 00:29 | C.PDOC ---
Time Seen by Provider: 03/19/17 18:14 Chief Complaint (Nursing): Abdominal Pain History Per: Patient, Family Onset/Duration Of Symptoms: Days (few) Current Symptoms Are (Timing): Worse Context: Other (s/p open appendectomy 5 days ago) Severity: Moderate Location Of Pain/Discomfort: RLQ, LLQ, Suprapubic Quality Of Discomfort: "Pain" Associated Symptoms: Fever, Nausea, Urinary Symptoms (?) Alleviating Factors: None Additional History Per: Prior Records Past Medical History Reviewed: Historical Data, Nursing Documentation, Vital Signs Vital Signs: Last Vital Signs Temp 99.1 F 03/19/17 22:55 Pulse 88 03/19/17 22:55 Resp 18 03/19/17 22:55 BP 121/79 03/19/17 22:55 Pulse Ox 98 03/19/17 22:55 - Medical History PMH: No Chronic Diseases Surgical History: Appendectomy - [facility] Procedures DRAINAGE OF PERITONEAL CAVITY, OPEN APPROACH (03/14/17) RESECTION OF APPENDIX, OPEN APPROACH (03/14/17) Family History: States: Unknown Family Hx - Social History Hx Alcohol Use: No Hx Substance Use: No - Immunization History Hx Tetanus Toxoid Vaccination: No Hx Influenza Vaccination: No Hx Pneumococcal Vaccination: Yes Review Of Systems Except As Marked, All Systems Reviewed And Found Negative. Constitutional: Positive for: Fever Cardiovascular: Negative for: Chest Pain Respiratory: Positive for: Shortness of Breath. Negative for: Hemoptysis Gastrointestinal: Positive for: Abdominal Pain. Negative for: Vomiting Musculoskeletal: Negative for: Neck Pain Skin: Negative for: Rash Neurological: Negative for: Weakness, Numbness, Seizures, Altered Mental Status Physical Exam - Physical Exam Appears: Non-toxic, No Acute Distress Skin: Normal Color, Warm, Dry, No Rash Head: Atraumatic, Normacephalic Eye(s): bilateral: Normal Inspection, PERRL, EOMI Neck: Normal ROM, Supple Cardiovascular: Rhythm Regular Respiratory: Normal Breath Sounds, No Accessory Muscle Use Gastrointestinal/Abdominal: Tenderness (lower abdomen), Other (Surgical wound appears clean with no signs of wound infection) Extremity: Normal ROM, No Calf Tenderness Neurological/Psych: Oriented x3, Normal Motor, Normal Sensation ED Course And Treatment - Laboratory Results Result Diagrams: 03/19/17 18:49 03/19/17 18:49 Urine POC: Negative O2 Sat by Pulse Oximetry: 98 Pulse Ox Interpretation: Normal - Radiology CXR: Interpreted by Me, Viewed By Me CXR Interpretation: Yes: Infiltrates (LLL) - CT Scan/US CT abdomen/pelvis Other Rad Studies (CT/US): Read By Radiologist, Radiology Report Reviewed CT/US Interpretation: IMPRESSION: Perioperative phlegmonous change within the right lower quadrant, without a. drainable fluid collection. Mass effect on the distal ureter is identified,. causing right-sided hydroureteronephrosis. Involuting 18 mm cyst within the right ovary. Interval development of bilateral pleural effusions with bibasilar. consolidation. - Physician Consult Information Physician Contacted: Armando Nguyễn (Urology) Outcome Of Conversation: He will see pt in the hospital. Progress - Interventions Interventions:: Observation, Intravenous fluid - Medications Administered Intravenous: NSAID - Data Reviewed Data Reviewed: Lab, Diagnostic imaging, Old records - Patient Status Patient status: Partially improved - Continuity of Care Discussed patient case with:: Patient, Family-HIPPA compliant, ED Nurse Discussed pt. case with sql consultant/specialty: General Surgery, Urology - Patient Plan Patient Plan: Admission Disposition Discussed With DrCoreen: Robert Magdaleno Comment: He accepted pt on his service. He wants to consult Dr. Dakotah Nguyễn for Urology and Dr. Hewitt for ID. Doctor Will See Patient In The: Hospital Counseled Patient/Family Regarding: Studies Performed, Diagnosis - Disposition Disposition: HOSPITALIZED Disposition Time: 00:32 Condition: FAIR - Clinical Impression Clinical Impression: Phlegmon, Status post appendectomy, Hydronephrosis of right kidney, Postoperative pneumonia
[2017-03-20] MEDS ORDERED: metroNIDAZOLE IV 500 mg/100 ml 500 MG/100 ML BAG IVPB STA (00:38)
[2017-03-20] MEDS ORDERED: Moxifloxacin IV 400mg/250ml NS 400 MG/250 ML BAG IVPB STA (00:40)
[2017-03-20] MEDS ORDERED: metroNIDAZOLE IV 500 mg/100 ml 500 MG/100 ML BAG ONE (00:57)
[2017-03-20] MEDS ORDERED: Moxifloxacin IV 400mg/250ml NS 400 MG/250 ML BAG IVPB ONE ×2 (02:26→07:56)
[2017-03-20] MEDS ORDERED: metroNIDAZOLE IV 500 mg/100 ml 500 MG/100 ML BAG IVPB SCH (09:00)
[2017-03-20] MEDS: Potassium Chloride 20 MEQ in Dextrose 5%/0.45% NS 1,000 ML IV SCH ×3 (09:15→21:13)
--- NOTE | 2017-03-20 09:43 | CP.PCM.PCO ---
Physician Communication Note - Physician Communication Note Physician Communication Note: Please see above
[2017-03-20] MEDS: Enoxaparin 40 mg Syringe SC SCH (10:21)
--- NOTE | 2017-03-20 10:21 | RAD ---
HISTORY: Pleural effusions? COMPARISON: Obstructive series performed 03/12/17, lung bases of CT abdomen and pelvis performed 03/19/17 TECHNIQUE: Chest, one view. FINDINGS: Examination limited by habitus and hypoinflation. LUNGS: Mild lingular/lower lobe atelectasis or infiltrate. Please note that chest x-ray has limited sensitivity for the detection of pulmonary masses. PLEURA: Small bilateral pleural effusions demonstrated by CT are not well appreciated on this study. No definite pneumothorax . CARDIOVASCULAR: Heart size appears within normal limits. OSSEOUS STRUCTURES: No acute osseous abnormality identified. VISUALIZED UPPER ABDOMEN: Unremarkable. OTHER FINDINGS: None. IMPRESSION: Mild lingular/lower lobe atelectasis or infiltrate. Small bilateral pleural effusions demonstrated by CT are not well appreciated on this study.
--- NOTE | 2017-03-20 11:50 | CP.PCM.CON ---
History of Present Illness - History of Present Illness History of Present Illness: admitted with phlegmon s/p appendectomy has infiltrates Dr Self on board - consider CT Angio chest , venous dopplers Cont IV antibiotics- Clinda/ Aztreonam PORTIA godoy and follow up dr Magdaleno Past Patient History - Past Medical History & Family History Past Medical History?: Yes - Past Social History Smoking Status: Never Smoked - CARDIAC Hx Cardiac Disorders: No Hx Angina: No Hx Atrial Fibrillation: No Hx Cardia Arrhythmia: No Hx Circulatory Problems: No Hx Congestive Heart Failure: No Hx Heart Attack: No Hx Heart Murmur: No Hx Heart Transplant: No Hx Hypercholesterolemia: No Hx Hypertension: No Hx Hypotension: No Hx Internal Defibrillator: No Hx Mitral Valve Prolapse: No Hx Pacemaker: No Hx Peripheral Edema: No Hx Peripheral Vascular Disease: No - PULMONARY Hx Respiratory Disorders: No Hx Asthma: No Hx Bronchitis: No Hx Chronic Obstructive Pulmonary Disease (COPD): No Hx Emphysema: No Hx Lung Cancer: No Hx Pneumonia: No Hx Pulmonary Edema: No Hx Pulmonary Embolism: No Hx Respiratory Aspiration: No Hx Respiratory Tract Infection: No Hx Sleep Apnea: No Hx Tuberculosis: No - NEUROLOGICAL Hx Neurological Disorder: No Hx Alzheimer's Disease: No HX Cerebrovascular Accident: No Hx Dementia: No Hx Dizziness: No Hx Meningitis: No Hx Migraine: No Hx Multiple Sclerosis: No Hx Paralysis: No Hx Parkinson's Disease: No Hx Seizures: No Hx Syncope: No Hx Transient Ischemic Attacks (TIA): No Hx Vertigo: No - HEENT Hx HEENT Problems: No Hx Blind: No Hx Cataracts: No Hx Deafness: No Hx Difficulty Chewing: No Hx Epistaxis: No Hx Glaucoma: No Hx Macular Degeneration: No Hx Sinusitis: No - RENAL Hx Chronic Kidney Disease: No Hx Dialysis: No Hx Kidney Stones: No Hx Neurogenic Bladder: No Hx Pyelonephritis: No Hx Renal (Kidney) Cancer: No Hx Renal Failure: No - ENDOCRINE/METABOLIC Hx Endocrine Disorders: No Hx Adrenal Cancer: No Hx Diabetes Insipidus: No Hx Diabetes Mellitus Type 1: No Hx Diabetes Mellitus Type 2: No Hx Hyperthyroidism: No Hx Hypothyroidism: No Hx Systemic Lupus Erythematosus: No - HEMATOLOGICAL/ONCOLOGICAL Hx Blood Disorders: No Hx AIDS: No Hx Anemia: No Hx Blood Transfusions: No Hx Blood Transfusion Reaction: No Hx Bruising: No Hx Cancer: No Hx Chemotherapy: No Hx Cirrhosis: No Hx Gum Bleeding: No Hx Hemophilia: No Hx Hepatitis A: No Hx Hepatitis B: No Hx Hepatitis C: No Hx Human Immunodeficiency Virus (HIV): No Hx Leukemia: No Hx Metastesis: No Hx Shingles: No Hx Sickle Cell Disease: No Hx Unexplained Bleeding: No Hx von Willebrand's Disease: No - INTEGUMENTARY Hx Dermatological Problems: No Hx Basil Cell: No Hx Olson: No Hx Cellulitis: No Hx Eczema: No Hx Melanoma: No Hx Psoriasis: No Hx Squamous Cell: No - MUSCULOSKELETAL/RHEUMATOLOGICAL Hx Musculoskeletal Disorders: No Hx Arthritis: No Hx Back Pain: No Hx Degenerative Joint Disease: No Hx Falls: No Hx Fractures: No Hx Gout: No Hx Herniated Disk: No Hx Myasthenia Gravis: No Hx Osteoarthritis: No Hx Osteomyelitis: No Hx Osteoporosis: No Hx Rhabdomyolysis: No Hx Rheumatoid Arthritis: No Hx Spinal Stenosis: No Hx Unsteady Gait: No - GASTROINTESTINAL Hx Gastrointestinal Disorders: Yes Hx Bowel Surgery: No Hx Clostridium Difficile: No Hx Colitis: No Hx Colostomy: No Hx Constipation: No Hx Crohn's Disease: No Hx Diarrhea: No Hx Diverticulitis: No Hx Esophageal Varices: No Hx Fatty Liver Disease: No Hx Gall Bladder Disease: No Hx Gastritis: No Hx Gastroesophageal Reflux: No Hx Hemorrhoids: No Hx Ileostomy: No Hx Irritable Bowel: No Hx Liver Failure: No Hx Nausea: No Hx Pancreatitis: No HX Swallowing Problems: No Hx Ulcer: No Hx Vomiting: No Other/Comment: appendicitis - GENITOURINARY/GYNECOLOGICAL Hx Genitourinary Disorders: No Hx Bladder Cancer: No Hx Bladder Stone: No Hx Cervical Cancer: No Hx Hematuria: No Hx Incontinence: No Hx Ovarian Cancer: No Hx Postmenopausal Bleeding: No Hx Reproductive Disorders: No Hx Sexually Transmitted Disorders: No Hx Uterine Cancer: No Hx Urinary Tract Infection: No - PSYCHIATRIC Hx Psychophysiologic Disorder: No Hx Anxiety: No Hx Bipolar Disorder: No Hx Depression: No Hx Emotional Abuse: No Hx Hallucinations: No Hx Panic Symptoms: No Hx Paranoia: No Hx Post Traumatic Stress Disorder: No Hx Psychosis: No Hx Physical Abuse: No Hx Schizophrenia: No Hx Sexual Abuse: No Hx Substance Use: No - SURGICAL HISTORY Hx Surgeries: Yes Hx Abdominal Aortic Aneurysm Repair: No Hx Amputation: No Hx Angiogram: No Hx Angioplasty: No Hx Appendectomy: Yes Hx Arteriovenous Shunt: No Hx Arthroscopy: No Hx Bile Duct Stent: No Hx Breast Biopsy: No Hx Cataract Extraction: No Hx Cardiac Catheterization: No Hx Carotid Endarterectomy: No Hx Section: No Hx Cholecystectomy: No Hx Coronary Artery Bypass Graft: No Hx Coronary Stent: No Hx Dilation and Curettage: No Hx Eye Surgery: No Hx Femoral-Popliteal Bypass Graft: No Hx Gastric Bypass Surgery: No Hx Herniorrhaphy: No Hx Hysterectomy: No Hx Joint Replacement: No Hx Kidney Transplant: No Hx Liver Transplant: No Hx Mastectomy: No Hx Musculoskeletal Surgery: No Hx Open Heart Surgery: No Hx Open Reduction Internal Fixation: No Hx Orthopedic Surgery: No Hx Parathyroidectomy: No Hx Penile Implant: No Hx Pulmonary Surgery: No Hx Splenectomy: No Hx Thyroidectomy: No Hx Tonsillectomy: No Hx Tubal Ligation: No Hx Valve Replacement: No Hx Vascular Surgery: No Hx Vascular Access Device: No - ANESTHESIA Hx Anesthesia: Yes Hx Anesthesia Reactions: No Hx Malignant Hyperthermia: No Has any member of the family had a problem w/ anesthesia?: No Meds Allergies/Adverse Reactions: Allergies Allergy/AdvReac Type Severity Reaction Status Date / Time Penicillins Allergy RASH Verified 03/14/17 19:49 - Medications Medications: Current Medications Enoxaparin Sodium (Lovenox) 40 mg SC DAILY [facility] Last Admin: 03/20/17 10:21 Dose: Not Given Potassium Chloride 20 meq/ (Dextrose/Sodium Chloride) 1,010 mls @ 125 mls/hr IV .Q8H5M [facility] Last Admin: 03/20/17 09:15 Dose: 125 mls/hr Metronidazole (Flagyl) 500 mg in 100 mls @ 100 mls/hr IVPB Q8H [facility] Last Admin: 03/20/17 09:40 Dose: 100 mls/hr Moxifloxacin HCl (Avelox Iv 400mg/250ml Ns) 400 mg in 250 mls @ 167 mls/hr IVPB Q24H [facility] Ketorolac Tromethamine (Toradol) 30 mg IVP Q6 PRN PRN Reason: Pain Results - Vital Signs Recent Vital Signs: Last Vital Signs Temp 98.0 F 03/20/17 08:00 Pulse 79 03/20/17 08:00 Resp 18 03/20/17 08:00 BP 126/77 03/20/17 08:00 Pulse Ox 96 03/20/17 08:00 - Labs Result Diagrams: 03/19/17 18:49 03/19/17 18:49
[2017-03-20] MEDS: Aztreonam 2 GM in Sodium Chloride 0.9% 100 ML IVPB SCH ×2 (13:45→21:15)
--- NOTE | 2017-03-20 18:59 | CP.PCM.CON ---
<Servando Billings - Last Filed: 03/20/17 18:57> History of Present Illness - History of Present Illness History of Present Illness: PGY-[address] Mccabe HPI: We are being consulted to manage this patient chronic medical issues. Patient seen and examined at bedside. Patient in obvious distress about her condition. Said sometimes it is hard to take a breath. Also complaining of pain around the incision site. Complaining of pain on urination and suprapubic tenderness. Denies N/V/D/F Review of Systems - Constitutional Constitutional: As Per HPI - EENT Eyes: As Per HPI Ears: As Per HPI Nose/Mouth/Throat: As Per HPI - Breasts Breasts: As Per HPI - Cardiovascular Cardiovascular: As Per HPI - Respiratory Respiratory: As Per HPI - Gastrointestinal Gastrointestinal: As Per HPI - Genitourinary Genitourinary: As Per HPI - Reproductive: Female Reproductive:Female: As Per HPI - Menstruation Menstruation: As Per HPI - Musculoskeletal Musculoskeletal: As Per HPI - Integumentary Integumentary: As Per HPI - Neurological Neurological: As Per HPI - Psychiatric Psychiatric: As Per HPI - Endocrine Endocrine: As Per HPI - Hematologic/Lymphatic Hematologic: As Per HPI Past Patient History - Past Medical History & Family History Past Medical History?: Yes - Past Social History Smoking Status: Never Smoked - CARDIAC Hx Cardiac Disorders: No Hx Angina: No Hx Atrial Fibrillation: No Hx Cardia Arrhythmia: No Hx Circulatory Problems: No Hx Congestive Heart Failure: No Hx Heart Attack: No Hx Heart Murmur: No Hx Heart Transplant: No Hx Hypercholesterolemia: No Hx Hypertension: No Hx Hypotension: No Hx Internal Defibrillator: No Hx Mitral Valve Prolapse: No Hx Pacemaker: No Hx Peripheral Edema: No Hx Peripheral Vascular Disease: No - PULMONARY Hx Respiratory Disorders: No Hx Asthma: No Hx Bronchitis: No Hx Chronic Obstructive Pulmonary Disease (COPD): No Hx Emphysema: No Hx Lung Cancer: No Hx Pneumonia: No Hx Pulmonary Edema: No Hx Pulmonary Embolism: No Hx Respiratory Aspiration: No Hx Respiratory Tract Infection: No Hx Sleep Apnea: No Hx Tuberculosis: No - NEUROLOGICAL Hx Neurological Disorder: No Hx Alzheimer's Disease: No HX Cerebrovascular Accident: No Hx Dementia: No Hx Dizziness: No Hx Meningitis: No Hx Migraine: No Hx Multiple Sclerosis: No Hx Paralysis: No Hx Parkinson's Disease: No Hx Seizures: No Hx Syncope: No Hx Transient Ischemic Attacks (TIA): No Hx Vertigo: No - HEENT Hx HEENT Problems: No Hx Blind: No Hx Cataracts: No Hx Deafness: No Hx Difficulty Chewing: No Hx Epistaxis: No Hx Glaucoma: No Hx Macular Degeneration: No Hx Sinusitis: No - RENAL Hx Chronic Kidney Disease: No Hx Dialysis: No Hx Kidney Stones: No Hx Neurogenic Bladder: No Hx Pyelonephritis: No Hx Renal (Kidney) Cancer: No Hx Renal Failure: No - ENDOCRINE/METABOLIC Hx Endocrine Disorders: No Hx Adrenal Cancer: No Hx Diabetes Insipidus: No Hx Diabetes Mellitus Type 1: No Hx Diabetes Mellitus Type 2: No Hx Hyperthyroidism: No Hx Hypothyroidism: No Hx Systemic Lupus Erythematosus: No - HEMATOLOGICAL/ONCOLOGICAL Hx Blood Disorders: No Hx AIDS: No Hx Anemia: No Hx Blood Transfusions: No Hx Blood Transfusion Reaction: No Hx Bruising: No Hx Cancer: No Hx Chemotherapy: No Hx Cirrhosis: No Hx Gum Bleeding: No Hx Hemophilia: No Hx Hepatitis A: No Hx Hepatitis B: No Hx Hepatitis C: No Hx Human Immunodeficiency Virus (HIV): No Hx Leukemia: No Hx Metastesis: No Hx Shingles: No Hx Sickle Cell Disease: No Hx Unexplained Bleeding: No Hx von Willebrand's Disease: No - INTEGUMENTARY Hx Dermatological Problems: No Hx Basil Cell: No Hx Olson: No Hx Cellulitis: No Hx Eczema: No Hx Melanoma: No Hx Psoriasis: No Hx Squamous Cell: No - MUSCULOSKELETAL/RHEUMATOLOGICAL Hx Musculoskeletal Disorders: No Hx Arthritis: No Hx Back Pain: No Hx Degenerative Joint Disease: No Hx Falls: No Hx Fractures: No Hx Gout: No Hx Herniated Disk: No Hx Myasthenia Gravis: No Hx Osteoarthritis: No Hx Osteomyelitis: No Hx Osteoporosis: No Hx Rhabdomyolysis: No Hx Rheumatoid Arthritis: No Hx Spinal Stenosis: No Hx Unsteady Gait: No - GASTROINTESTINAL Hx Gastrointestinal Disorders: Yes Hx Bowel Surgery: No Hx Clostridium Difficile: No Hx Colitis: No Hx Colostomy: No Hx Constipation: No Hx Crohn's Disease: No Hx Diarrhea: No Hx Diverticulitis: No Hx Esophageal Varices: No Hx Fatty Liver Disease: No Hx Gall Bladder Disease: No Hx Gastritis: No Hx Gastroesophageal Reflux: No Hx Hemorrhoids: No Hx Ileostomy: No Hx Irritable Bowel: No Hx Liver Failure: No Hx Nausea: No Hx Pancreatitis: No HX Swallowing Problems: No Hx Ulcer: No Hx Vomiting: No Other/Comment: appendicitis - GENITOURINARY/GYNECOLOGICAL Hx Genitourinary Disorders: No Hx Bladder Cancer: No Hx Bladder Stone: No Hx Cervical Cancer: No Hx Hematuria: No Hx Incontinence: No Hx Ovarian Cancer: No Hx Postmenopausal Bleeding: No Hx Reproductive Disorders: No Hx Sexually Transmitted Disorders: No Hx Uterine Cancer: No Hx Urinary Tract Infection: No - PSYCHIATRIC Hx Psychophysiologic Disorder: No Hx Anxiety: No Hx Bipolar Disorder: No Hx Depression: No Hx Emotional Abuse: No Hx Hallucinations: No Hx Panic Symptoms: No Hx Paranoia: No Hx Post Traumatic Stress Disorder: No Hx Psychosis: No Hx Physical Abuse: No Hx Schizophrenia: No Hx Sexual Abuse: No Hx Substance Use: No - SURGICAL HISTORY Hx Surgeries: Yes Hx Abdominal Aortic Aneurysm Repair: No Hx Amputation: No Hx Angiogram: No Hx Angioplasty: No Hx Appendectomy: Yes Hx Arteriovenous Shunt: No Hx Arthroscopy: No Hx Bile Duct Stent: No Hx Breast Biopsy: No Hx Cataract Extraction: No Hx Cardiac Catheterization: No Hx Carotid Endarterectomy: No Hx Section: No Hx Cholecystectomy: No Hx Coronary Artery Bypass Graft: No Hx Coronary Stent: No Hx Dilation and Curettage: No Hx Eye Surgery: No Hx Femoral-Popliteal Bypass Graft: No Hx Gastric Bypass Surgery: No Hx Herniorrhaphy: No Hx Hysterectomy: No Hx Joint Replacement: No Hx Kidney Transplant: No Hx Liver Transplant: No Hx Mastectomy: No Hx Musculoskeletal Surgery: No Hx Open Heart Surgery: No Hx Open Reduction Internal Fixation: No Hx Orthopedic Surgery: No Hx Parathyroidectomy: No Hx Penile Implant: No Hx Pulmonary Surgery: No Hx Splenectomy: No Hx Thyroidectomy: No Hx Tonsillectomy: No Hx Tubal Ligation: No Hx Valve Replacement: No Hx Vascular Surgery: No Hx Vascular Access Device: No - ANESTHESIA Hx Anesthesia: Yes Hx Anesthesia Reactions: No Hx Malignant Hyperthermia: No Has any member of the family had a problem w/ anesthesia?: No Meds Allergies/Adverse Reactions: Allergies Allergy/AdvReac Type Severity Reaction Status Date / Time Penicillins Allergy RASH Verified 03/14/17 19:49 - Medications Medications: Current Medications Enoxaparin Sodium (Lovenox) 40 mg SC DAILY [facility] Last Admin: 03/20/17 10:21 Dose: Not Given Potassium Chloride 20 meq/ (Dextrose/Sodium Chloride) 1,010 mls @ 125 mls/hr IV .Q8H5M [facility] Last Admin: 03/20/17 17:00 Dose: Not Given Aztreonam 2 gm/ Sodium (Chloride) 100 mls @ 200 mls/hr IVPB Q8H [facility] Last Admin: 03/20/17 13:45 Dose: 200 mls/hr Clindamycin Phosphate 600 mg/ (Sodium Chloride) 54 mls @ 100 mls/hr IVPB Q8H [facility] Last Admin: 03/20/17 15:14 Dose: 100 mls/hr Ketorolac Tromethamine (Toradol) 30 mg IVP Q6 PRN PRN Reason: Pain Last Admin: 03/20/17 12:13 Dose: 30 mg Physical Exam - Constitutional Additional comments: crying - Head Exam Head Exam: ATRAUMATIC, NORMAL INSPECTION, NORMOCEPHALIC - Eye Exam Eye Exam: EOMI - ENT Exam ENT Exam: Mucous Membranes Moist - Respiratory Exam Respiratory Exam: Clear to Auscultation Bilateral, NORMAL BREATHING PATTERN. absent: Rales, Rhonchi, Wheezes - Cardiovascular Exam Cardiovascular Exam: REGULAR RHYTHM, RRR - GI/Abdominal Exam GI & Abdominal Exam: Normal Bowel Sounds, Soft, Tenderness (suprapubic tenderness, tenderness around incision site, no evidence of infection). absent : Bruit, Distended, Firm - Neurological Exam Neurological exam: Alert, Oriented x3 - Psychiatric Exam Psychiatric exam: Depressed - Skin Skin Exam: Dry, Intact, Normal Color, Warm Results - Vital Signs Recent Vital Signs: Last Vital Signs Temp 98.4 F 03/20/17 15:55 Pulse 60 03/20/17 15:55 Resp 18 03/20/17 15:55 BP 121/80 03/20/17 15:55 Pulse Ox 95 03/20/17 15:55 - Labs Result Diagrams: 03/19/17 18:49 03/19/17 18:49 Assessment & Plan - Assessment and Plan (Free Text) Assessment: Patient does not have any chronic medical conditions so no medical management is needed at this time, however, we are more than happy to coordinate this patients care. We have discussed the case Dr. Hewitt and he is putting Abx on board. We will also discuss the case with Dr. Nguyễn. Thank you for this consult. - Date & Time Date: 03/20/17 Time: 19:05 <Jose Mccabe - Last Filed: 03/20/17 22:46> Meds - Medications Medications: Current Medications Enoxaparin Sodium (Lovenox) 40 mg SC DAILY [facility] Last Admin: 03/20/17 10:21 Dose: Not Given Hydromorphone HCl (Dilaudid) 0.5 mg IVP Q10M PRN PRN Reason: Pain, moderate (4-7) Stop: 03/21/17 00:25 Potassium Chloride 20 meq/ (Dextrose/Sodium Chloride) 1,010 mls @ 125 mls/hr IV .Q8H5M [facility] Last Admin: 03/20/17 21:13 Dose: 125 mls/hr Aztreonam 2 gm/ Sodium (Chloride) 100 mls @ 200 mls/hr IVPB Q8H [facility] Last Admin: 03/20/17 21:15 Dose: 200 mls/hr Clindamycin Phosphate 600 mg/ (Sodium Chloride) 54 mls @ 100 mls/hr IVPB Q8H [facility] Last Admin: 03/20/17 15:14 Dose: 100 mls/hr Ketorolac Tromethamine (Toradol) 30 mg IVP Q6 PRN PRN Reason: Pain Last Admin: 03/20/17 12:13 Dose: 30 mg Metoclopramide HCl (Reglan) 10 mg IVP ONCE PRN PRN Reason: Nausea/Vomiting Stop: 03/21/17 00:25 Ondansetron HCl (Zofran Inj) 4 mg IVP Q6H PRN PRN Reason: Nausea/Vomiting Last Admin: 03/20/17 20:08 Dose: 4 mg Results - Vital Signs Recent Vital Signs: Last Vital Signs Temp 99.1 F 03/20/17 21:18 Pulse 64 03/20/17 21:18 Resp 20 03/20/17 21:18 BP 137/86 03/20/17 21:18 Pulse Ox 99 03/20/17 21:18 - Labs Result Diagrams: 03/19/17 18:49 03/19/17 18:49 Attending/Attestation - Attestation I have personally seen and examined this patient.: Yes I have fully participated in the care of the patient.: Yes I have reviewed all pertinent clinical information: Yes Notes (Text): 03/20/17 22:40 Patient was seen and re-examined shortly after resident Exam, Assessment and Plan were gone over with the resident. Assessments: 1). Phlegmon RLQ S/P Appendectomy on 03/14/17: management as per primary Dr. Middleton. I spoke with ID Dr. North and Aztreonam 2 gm IV Q8H and Clindamycin 600 mg IV Q8H have been ordered. F/U Blood Culture 2). Right Hydroureternephrosis: secondary to the phlegmon. I spoke with Urologist Dr. Dalia Nguyễn and he plans to place a right ureteral stent tonight 03/20 3). Bilateral Pleural Effusions with Bibasilar Consolidations: on Aztreonam and Clindamycin as above. F/U Pulmonology system administration manager Dr. Guajardo recommendations. 4). Prophylaxis: pain management with Toradol and Dilaudid as per primary Dr. Middleton, Zofran/Reglan PRN N/V, Lovenox, Protonix Medicine Team will continue to follow Jose Mccabe D.O.
[2017-03-20] MEDS ORDERED: Lactated Ringer's 1,000 ML IV ONE ×2 (20:22)
[2017-03-20] MEDS ORDERED: HYDROmorphone 0.5 mg/0.5 ml ISec IVP PRN (22:24)
[2017-03-20] MEDS ORDERED: Iohexol 240 (50 ml) ONE (22:26)
[2017-03-20] MEDS ORDERED: Midazolam 2 MG/2 ML VIAL ONE (22:29)
[2017-03-20] MEDS ORDERED: Propofol 10 mg/ml Inj (20 ML) ONE (22:29)
[2017-03-20] MEDS ORDERED: Clindamycin 600mg/50ml D5W 600 MG/50 ML VIAL IVPB ONE (22:30)
[2017-03-21] MEDS: Aztreonam 2 GM in Sodium Chloride 0.9% 100 ML IVPB SCH ×3 (05:15→22:17)
[2017-03-21 07:21] LABS: BASO % 0.5 % (0.0-2.0); EOS # 0.1 K/uL (0.0-0.7); EOS % 1.7 % (0.0-4.0); HEMATOCRIT 28.4 % (34.0-47.0); LYMPH # 1.5 K/uL (1.0-4.3); LYMPH % 18.4 % (20.0-40.0); MEAN CELL VOLUME 85.8 fL (81.0-99.0); MEAN CORPUSCULAR HEMOGLOBIN 29.3 pg (27.0-31.0); MEAN CORPUSCULAR HGB CONC 34.1 g/dL (33.0-37.0); MEAN PLATELET VOLUME 8.4 fL (7.2-11.7); MONO # 0.8 K/uL (0.0-0.8); MONO % 10.1 % (0.0-10.0); RED CELL DISTRIBUTION WIDTH 12.2 % (11.5-14.5)
--- NOTE | 2017-03-21 07:23 | OP ---
PROCEDURE DATE: PREOPERATIVE DIAGNOSES: Right hydronephrosis, hematuria, right flank pain, abdominal pain and also a tortuous right ureter. POSTOPERATIVE DIAGNOSES: Right hydronephrosis, hematuria, right flank pain, abdominal pain and also a tortuous right ureter. PROCEDURE: Exam under anesthesia, cystoscopy, a right retrograde pyelogram and insertion of a right double-J stent. COMPLICATIONS: There were no complications. BLOOD LOSS: Less than 10 mL. At the termination of procedure, double-J stent is in good location. mentioned the findings. There is oral contrast left over from the previous CT scan. The area of right hydronephrosis was kinking of the proximal ureter. At the termination of procedure, we have a double-J stent in good location. No stones identified. The point of obstruction is difficult to delineate with these studies. INDICATIONS: See history and physical and consultation. The patient is here now for the above procedure, basically new onset of right hydronephrosis. She is status post appendectomy last week by Dr. Magdaleno. Dr. Magdaleno asked me to place a stent. There was some kind of phlegmon. DESCRIPTION OF PROCEDURE: As follows. After obtaining informed consent, I explained to the patient in great detail with a associate creative director. I also spoke to the mother and the sister. The sister was on FaceTime. I spoke to the sister before the FaceTime call and when I saw the patient explained details. We discussed risks, benefits, treatment alternatives at length. Discussed all these things, the patient is here for the above procedure. The patient brought to the OR and placed on the table. Routine monitor was placed. Time-out was called. Reconfirming the patient's positioning, the patient was also on clindamycin, aztreonam and she is due for a dose in a little while and will receive that next dose. Cystoscope was introduced, the patient was placed in lithotomy. Time-outs had been called to confirm the position of the patient. not significant. Just oral contrast is noted. We introduced cystoscope via the urethra. Ureteral orifice identified clear reflux from the kidney. A right retrograde pyelogram was performed with a tortuous proximal ureter with hydro. The oral contrast is also noted. We then put a wire up to the kidney and it passed relatively easily with the open-ended wire technique. Once we have the wire in place, we put a double-J stent in. We used a 4.8, 20-30. Overall, the patient tolerated the procedure well without complications. The plan would be to observe the patient. From a urology standpoint, we will follow. We will get a followup ultrasound, make sure there is no more hydronephrosis, and in terms of the management of the phlegmon, that would be up to Dr. Magdaleno regarding whether this is an abscess, phlegmon, etc. Any antibiotics in all that will be done by the rest of the team. From a urology standpoint, we will follow along. Then subsequently when the hydronephrosis has gone, we will reevaluate the kidney and the ureter. Bart Nguyễn MD
[2017-03-21 07:30] LABS: CHLORIDE 101 mmol/L (98-107); POTASSIUM 3.5 mmol/L (3.6-5.2); SODIUM 135 mmol/L (132-148)
[2017-03-21 07:32] LABS: BILIRUBIN,TOTAL 0.7 mg/dL (0.2-1.3); GFR AFRICAN-AMERICAN > 60
[2017-03-21 07:33] LABS: ALB/GLOB RATIO 0.8 (1.0-2.1); ALKALINE PHOSPHATASE 56 U/L (38-126); ALT/SGPT 29 U/L (9-52); AST/SGOT 23 U/L (14-36); BLOOD UREA NITROGEN 6 mg/dL (7-17); CARBON DIOXIDE 27 mmol/L (22-30); GLUCOSE,RANDOM 92 mg/dL (65-105); TOTAL PROTEIN 5.7 g/dL (6.3-8.3)
[2017-03-21 07:34] LABS: CALCIUM 7.9 mg/dl (8.6-10.4)
[2017-03-21] MEDS ORDERED: Moxifloxacin IV 400mg/250ml NS 400 MG/250 ML BAG IVPB SCH (08:00)
--- NOTE | 2017-03-21 08:26 | HP ---
DATE: 03/20/2017 SUBJECTIVE: This is a 31-year-old female who is 5-day status post an open appendectomy for perforated appendicitis. At time of surgery, she had very small collection which was drained and a peritoneal lavage was performed. Postop and she was discharged on postop day #3 with prescription for antibiotics and pain medicine. She was subsequently seen in the ER 2 days ago complaining of increase pain. I was not called about this admission. The patient went home yesterday. Last night I was called late that she had returned again with pain, abdominal distention and fever. At that time her temperature was 99. She had a white blood cell count of 9000 in the ER. However, on a CAT scan reveals phlegmonous changes in the right lower quadrant without abscess. There was also a right hydroureter most likely from the compression of the ureter from the phlegmonous. The patient was admitted to my service, placed on a antibiotics and also on a CAT scan she was noted to have bilateral pleural effusions with consolidation of both lower lobs. This was noted to be either atelectasis or possible pneumonia. She was admitted to my service, pulmonary and urology consults were obtained. She was placed on IV antibiotics. PLAN: At this time, there are no plans for operative management. This not appear to be infectious process going on rather and postop inflammatory process causing both atelectasis and compression of the right ureter. This was discussed in detail Dr. Bart Nguyễn and he will attempt to place a stent in the right ureter today. We will follow the patient as noted. Robert Magdaleno MD :06:28
[2017-03-21] MEDS: Enoxaparin 40 mg Syringe SC SCH (10:05)
--- NOTE | 2017-03-21 10:22 | CON ---
UROLOGY CONSULTATION HISTORY OF PRESENT ILLNESS: The patient underwent an appendectomy by Dr. Magdaleno. Postoperatively, she has now been readmitted with new onset of right hydronephrosis with "phlegmon mass" causing right hydronephrosis and Urology is consulted specifically to request a insertion of right double-J stent. CT scan listed from 03/19/2017. The patient with right flank pain and also right abdominal pain, right lower quadrant, right excisional pain and it goes across to the bottom of the abdomen and to lower abdomen and it goes across to the left side. No left flank pain is noted. PAST MEDICAL AND SURGICAL HISTORY: As listed as above. GYNECOLOGIC HISTORY: Otherwise relatively unremarkable. She has 2 children, 6-year-old and 2-year-old. She has a cycles on a regular basis. REVIEW OF SYSTEMS: Listed above is noncontributory. No weight loss or chest pain. As mentioned above. At this point, I mentioned quickly that the history from the patient directly and from the nurse translating. In addition, while I was seeing the patient, the mother was there as well as her sister . PHYSICAL EXAMINATION: GENERAL: Well-nourished female in no apparent distress. BACK: No real CVA tenderness elicited. ABDOMEN: Relatively difficult to tell. NECK: Grossly distended. LABORATORY DATA: CT scan is noted. The hydronephrosis noted. Labs as follows; white count 9 and hematocrit 33%. BUN and creatinine are normal. Remainder of the labs revealed calcium is 8.4. DIAGNOSIS: Hydronephrosis. I had a lengthy discussion with the patient by way of translation about possible for hydronephrosis including the mass, which is listed in the phlegmon. The possibility for an abscess. I expressed to the patient that we are going to just be placing a stent in terms of management of the phlegmon mass, abscess, cavity, and the antibiotic use and what the timing for all of the other things will be up to the general surgeon, Dr. Magdaleno. In this case from Urology standpoint, see the plan as listed above. I explained to the patient that at this point, there is hydronephrosis I explained to them the risks, benefits, treatment alternatives at length. My plan is to place stent as best as possible. I made further plans for follow. Thank you for the consult. The plan is as follows and continue the antibiotics and bring the patient to the OR as soon as possible and insert the stent and then further plans will follow. I explained this in great detail to the patient, the mother, and the sister with the patients' request and also by way of radiology specialist. ADDENDUM When we were obtaining consent in the OR, the nurse in the OR commented that the patient fully understood, in fact she stayed what she was downstairs to the OR prior just doing any procedure. Thank you for the Urology consult. Bart Nguyễn MD
[2017-03-21] MEDS ORDERED: Potassium Chloride 20 mEq ER Tab PO ONE (11:39)
--- NOTE | 2017-03-21 14:43 | PN ---
DATE: 03/21/2017 SUBJECTIVE: The patient is seen today, resting comfortably in her bed. She is 12-hour status post successful placement of a right ureteral stent by Dr. Armando Colunga but today she is resting comfortably. She relates she had a bowel movement this morning and her pain has decreased dramatically. PHYSICAL EXAMINATION VITAL SIGNS: Temperature is 98.4, pulse rate is 66, and blood pressure is 118/78. ABDOMEN: Benign, it is soft in all 4 quadrant. No tenderness. No rebound. The remainder of the physical exam was unremarkable. IMPRESSION: My impression is that her pain and discomfort was secondary to the hydronephrosis from the compression of the ureter from the phlegmon status post appendectomy for a perforated appendix. She will continue on IV antibiotics and we will advance her diet. If she remains stable tomorrow with continued improvement, she will be discharged. No antibiotics will be needed for discharge as it is basically an inflammatory noninfectious process. Robert Magdaleno MD
--- NOTE | 2017-03-21 15:34 | CP.PCM.CON ---
History of Present Illness - History of Present Illness History of Present Illness: post op sob, cough scanty whitish sputum, no h/o asthma non smoker cxr and ct reveal atelectasis and small bilat effusions Review of Systems - Review of Systems All systems: reviewed and no additional remarkable complaints except - Respiratory Respiratory: Cough, Excessive Mucous Production Past Patient History - Past Medical History & Family History Past Medical History?: Yes - Past Social History Smoking Status: Never Smoked - CARDIAC Hx Cardiac Disorders: No Hx Angina: No Hx Atrial Fibrillation: No Hx Cardia Arrhythmia: No Hx Circulatory Problems: No Hx Congestive Heart Failure: No Hx Heart Attack: No Hx Heart Murmur: No Hx Heart Transplant: No Hx Hypercholesterolemia: No Hx Hypertension: No Hx Hypotension: No Hx Internal Defibrillator: No Hx Mitral Valve Prolapse: No Hx Pacemaker: No Hx Peripheral Edema: No Hx Peripheral Vascular Disease: No - PULMONARY Hx Respiratory Disorders: No Hx Asthma: No Hx Bronchitis: No Hx Chronic Obstructive Pulmonary Disease (COPD): No Hx Emphysema: No Hx Lung Cancer: No Hx Pneumonia: No Hx Pulmonary Edema: No Hx Pulmonary Embolism: No Hx Respiratory Aspiration: No Hx Respiratory Tract Infection: No Hx Sleep Apnea: No Hx Tuberculosis: No - NEUROLOGICAL Hx Neurological Disorder: No Hx Alzheimer's Disease: No HX Cerebrovascular Accident: No Hx Dementia: No Hx Dizziness: No Hx Meningitis: No Hx Migraine: No Hx Multiple Sclerosis: No Hx Paralysis: No Hx Parkinson's Disease: No Hx Seizures: No Hx Syncope: No Hx Transient Ischemic Attacks (TIA): No Hx Vertigo: No - HEENT Hx HEENT Problems: No Hx Blind: No Hx Cataracts: No Hx Deafness: No Hx Difficulty Chewing: No Hx Epistaxis: No Hx Glaucoma: No Hx Macular Degeneration: No Hx Sinusitis: No - RENAL Hx Chronic Kidney Disease: No Hx Dialysis: No Hx Kidney Stones: No Hx Neurogenic Bladder: No Hx Pyelonephritis: No Hx Renal (Kidney) Cancer: No Hx Renal Failure: No - ENDOCRINE/METABOLIC Hx Endocrine Disorders: No Hx Adrenal Cancer: No Hx Diabetes Insipidus: No Hx Diabetes Mellitus Type 1: No Hx Diabetes Mellitus Type 2: No Hx Hyperthyroidism: No Hx Hypothyroidism: No Hx Systemic Lupus Erythematosus: No - HEMATOLOGICAL/ONCOLOGICAL Hx Blood Disorders: No Hx AIDS: No Hx Anemia: No Hx Blood Transfusions: No Hx Blood Transfusion Reaction: No Hx Bruising: No Hx Cancer: No Hx Chemotherapy: No Hx Cirrhosis: No Hx Gum Bleeding: No Hx Hemophilia: No Hx Hepatitis A: No Hx Hepatitis B: No Hx Hepatitis C: No Hx Human Immunodeficiency Virus (HIV): No Hx Leukemia: No Hx Metastesis: No Hx Shingles: No Hx Sickle Cell Disease: No Hx Unexplained Bleeding: No Hx von Willebrand's Disease: No - INTEGUMENTARY Hx Dermatological Problems: No Hx Basil Cell: No Hx Olson: No Hx Cellulitis: No Hx Eczema: No Hx Melanoma: No Hx Psoriasis: No Hx Squamous Cell: No - MUSCULOSKELETAL/RHEUMATOLOGICAL Hx Musculoskeletal Disorders: No Hx Arthritis: No Hx Back Pain: No Hx Degenerative Joint Disease: No Hx Falls: No Hx Fractures: No Hx Gout: No Hx Herniated Disk: No Hx Myasthenia Gravis: No Hx Osteoarthritis: No Hx Osteomyelitis: No Hx Osteoporosis: No Hx Rhabdomyolysis: No Hx Rheumatoid Arthritis: No Hx Spinal Stenosis: No Hx Unsteady Gait: No - GASTROINTESTINAL Hx Gastrointestinal Disorders: Yes Hx Bowel Surgery: No Hx Clostridium Difficile: No Hx Colitis: No Hx Colostomy: No Hx Constipation: No Hx Crohn's Disease: No Hx Diarrhea: No Hx Diverticulitis: No Hx Esophageal Varices: No Hx Fatty Liver Disease: No Hx Gall Bladder Disease: No Hx Gastritis: No Hx Gastroesophageal Reflux: No Hx Hemorrhoids: No Hx Ileostomy: No Hx Irritable Bowel: No Hx Liver Failure: No Hx Nausea: No Hx Pancreatitis: No HX Swallowing Problems: No Hx Ulcer: No Hx Vomiting: No Other/Comment: appendicitis - GENITOURINARY/GYNECOLOGICAL Hx Genitourinary Disorders: No Hx Bladder Cancer: No Hx Bladder Stone: No Hx Cervical Cancer: No Hx Hematuria: No Hx Incontinence: No Hx Ovarian Cancer: No Hx Postmenopausal Bleeding: No Hx Reproductive Disorders: No Hx Sexually Transmitted Disorders: No Hx Uterine Cancer: No Hx Urinary Tract Infection: No - PSYCHIATRIC Hx Psychophysiologic Disorder: No Hx Anxiety: No Hx Bipolar Disorder: No Hx Depression: No Hx Emotional Abuse: No Hx Hallucinations: No Hx Panic Symptoms: No Hx Paranoia: No Hx Post Traumatic Stress Disorder: No Hx Psychosis: No Hx Physical Abuse: No Hx Schizophrenia: No Hx Sexual Abuse: No Hx Substance Use: No - SURGICAL HISTORY Hx Surgeries: Yes Hx Abdominal Aortic Aneurysm Repair: No Hx Amputation: No Hx Angiogram: No Hx Angioplasty: No Hx Appendectomy: Yes Hx Arteriovenous Shunt: No Hx Arthroscopy: No Hx Bile Duct Stent: No Hx Breast Biopsy: No Hx Cataract Extraction: No Hx Cardiac Catheterization: No Hx Carotid Endarterectomy: No Hx Section: No Hx Cholecystectomy: No Hx Coronary Artery Bypass Graft: No Hx Coronary Stent: No Hx Dilation and Curettage: No Hx Eye Surgery: No Hx Femoral-Popliteal Bypass Graft: No Hx Gastric Bypass Surgery: No Hx Herniorrhaphy: No Hx Hysterectomy: No Hx Joint Replacement: No Hx Kidney Transplant: No Hx Liver Transplant: No Hx Mastectomy: No Hx Musculoskeletal Surgery: No Hx Open Heart Surgery: No Hx Open Reduction Internal Fixation: No Hx Orthopedic Surgery: No Hx Parathyroidectomy: No Hx Penile Implant: No Hx Pulmonary Surgery: No Hx Splenectomy: No Hx Thyroidectomy: No Hx Tonsillectomy: No Hx Tubal Ligation: No Hx Valve Replacement: No Hx Vascular Surgery: No Hx Vascular Access Device: No - ANESTHESIA Hx Anesthesia: Yes Hx Anesthesia Reactions: No Hx Malignant Hyperthermia: No Has any member of the family had a problem w/ anesthesia?: No Meds Allergies/Adverse Reactions: Allergies Allergy/AdvReac Type Severity Reaction Status Date / Time Penicillins Allergy RASH Verified 03/14/17 19:49 - Medications Medications: Current Medications Albuterol/Ipratropium (Duoneb 3 Mg/0.5 Mg (3 Ml) Ud) 3 ml INH RQ6 [facility] Enoxaparin Sodium (Lovenox) 40 mg SC DAILY [facility] Last Admin: 03/21/17 10:05 Dose: 40 mg Aztreonam 2 gm/ Sodium (Chloride) 100 mls @ 200 mls/hr IVPB Q8H [facility] Last Admin: 03/21/17 13:08 Dose: 200 mls/hr Clindamycin Phosphate 600 mg/ (Sodium Chloride) 54 mls @ 100 mls/hr IVPB Q8H [facility] Last Admin: 03/21/17 15:13 Dose: 100 mls/hr Ketorolac Tromethamine (Toradol) 30 mg IVP Q6 PRN PRN Reason: Pain Last Admin: 03/21/17 09:25 Dose: 30 mg Ondansetron HCl (Zofran Inj) 4 mg IVP Q6H PRN PRN Reason: Nausea/Vomiting Last Admin: 03/20/17 20:08 Dose: 4 mg Physical Exam - Constitutional Appears: No Acute Distress - Head Exam Head Exam: ATRAUMATIC, NORMOCEPHALIC - Eye Exam Eye Exam: Normal appearance - ENT Exam ENT Exam: Mucous Membranes Moist - Neck Exam Neck exam: Positive for: Normal Inspection - Respiratory Exam Respiratory Exam: Decreased Breath Sounds - Cardiovascular Exam Cardiovascular Exam: +S1, +S2 - GI/Abdominal Exam GI & Abdominal Exam: Normal Bowel Sounds - Rectal Exam Rectal Exam: Deferred - Extremities Exam Extremities exam: Positive for: normal inspection - Neurological Exam Neurological exam: Alert, Oriented x3 - Psychiatric Exam Psychiatric exam: Normal Affect, Normal Mood - Skin Skin Exam: Intact Results - Vital Signs Recent Vital Signs: Last Vital Signs Temp 98 F 03/21/17 13:06 Pulse 62 03/21/17 13:06 Resp 18 03/21/17 13:06 BP 114/75 03/21/17 13:06 Pulse Ox 96 03/21/17 13:06 - Labs Result Diagrams: 03/21/17 06:53 03/21/17 06:53 Labs: Laboratory Results - last 24 hr 03/21/17 03/21/17 06:53 06:53 WBC 8.0 RBC 3.31 L Hgb 9.7 L Hct 28.4 L MCV 85.8 MCH 29.3 MCHC 34.1 RDW 12.2 Plt Count 244 MPV 8.4 Neut % (Auto) 69.3 Lymph % (Auto) 18.4 L [place] % (Auto) 10.1 H Eos % (Auto) 1.7 Baso % (Auto) 0.5 Neut # 5.6 Lymph # 1.5 [place] # 0.8 Eos # 0.1 Baso # 0.0 Sodium 135 Potassium 3.5 L Chloride 101 Carbon Dioxide 27 Anion Gap 11 BUN 6 L Creatinine 0.7 Est GFR ( Amer) > 60 Est GFR (Non-Af Amer) > 60 Random Glucose 92 Calcium 7.9 L Total Bilirubin 0.7 AST 23 ALT 29 Alkaline Phosphatase 56 Total Protein 5.7 L Albumin 2.5 L Globulin 3.2 Albumin/Globulin Ratio 0.8 L Assessment & Plan (1) Atelectasis of both lungs Status: Acute Comment: add duoneb to incentive anthony (2) Pleural effusion due to another disorder Status: Acute Comment: small pleural effusions should resolve with treatment for infection. no thoracentesis needed at this time
--- NOTE | 2017-03-21 15:45 | RAD ---
HISTORY: RIGHT HYDRONEPHROSISI COMPARISON: Abdomen pelvis CT 03/19/2017. FINDINGS: BOWEL: There is a nonobstructive bowel gas pattern appreciated with gas seen mildly distending various large as well as small bowel loops appear retained oral contrast material is identified in the right fabian colon hepatic flexure and the rectum. A tiny bit of oral contrast material is likely within a small diverticulum related to the proximal sigmoid colon cephalad to the left iliac crest. No prominent free intrarenal gas. BONES: Normal. OTHER FINDINGS: None. IMPRESSION: Nonobstructive bowel gas pattern. Retained oral contrast material is appreciate the right greater than left hemicolon. No prominent free intrarenal gas.
--- NOTE | 2017-03-21 17:38 | CP.PCM.PN ---
Subjective - Date & Time of Evaluation Date of Evaluation: 03/21/17 Time of Evaluation: 09:00 - Subjective Subjective: seen by pulm no thoracentesis cont iv rx Objective - Vital Signs/Intake and Output Vital Signs (last 24 hours): Temp Pulse Resp BP Pulse Ox 98.6 F 67 20 127/85 100 03/21/17 17:00 03/21/17 17:00 03/21/17 17:00 03/21/17 17:00 03/21/17 17:00 Intake and Output: 03/21/17 03/21/17 06:59 18:59 Intake Total 1800 1280 Output Total 350 1300 Balance 1450 -20 - Medications Medications: Current Medications Albuterol/Ipratropium (Duoneb 3 Mg/0.5 Mg (3 Ml) Ud) 3 ml INH RQ6 [facility] Enoxaparin Sodium (Lovenox) 40 mg SC DAILY [facility] Last Admin: 03/21/17 10:05 Dose: 40 mg Aztreonam 2 gm/ Sodium (Chloride) 100 mls @ 200 mls/hr IVPB Q8H [facility] Last Admin: 03/21/17 13:08 Dose: 200 mls/hr Clindamycin Phosphate 600 mg/ (Sodium Chloride) 54 mls @ 100 mls/hr IVPB Q8H [facility] Last Admin: 03/21/17 15:13 Dose: 100 mls/hr Ketorolac Tromethamine (Toradol) 30 mg IVP Q6 PRN PRN Reason: Pain Last Admin: 03/21/17 09:25 Dose: 30 mg Ondansetron HCl (Zofran Inj) 4 mg IVP Q6H PRN PRN Reason: Nausea/Vomiting Last Admin: 03/20/17 20:08 Dose: 4 mg - Labs Labs: 03/21/17 06:53 03/21/17 06:53 - Constitutional Appears: Non-toxic - Head Exam Head Exam: NORMOCEPHALIC - Eye Exam Eye Exam: absent: Scleral icterus - ENT Exam ENT Exam: Mucous Membranes Dry - Neck Exam Neck Exam: absent: Lymphadenopathy - Respiratory Exam Respiratory Exam: Decreased Breath Sounds - Cardiovascular Exam Cardiovascular Exam: REGULAR RHYTHM - GI/Abdominal Exam GI & Abdominal Exam: Distended
--- NOTE | 2017-03-21 18:27 | CP.PCM.PN ---
<Servando Billings - Last Filed: 03/21/17 18:24> Subjective - Date & Time of Evaluation Date of Evaluation: 03/21/17 Time of Evaluation: 18:24 - Subjective Subjective: PGY-[address] Mccabe HPI: patient seen and examined at bedside. No complaints at this time. Sitting in chair comfortably. Feels much better after urologic intervention yesterday. Denies N/V/D/C/Fever Objective - Vital Signs/Intake and Output Vital Signs (last 24 hours): Temp Pulse Resp BP Pulse Ox 98.6 F 67 20 127/85 100 03/21/17 17:00 03/21/17 17:00 03/21/17 17:00 03/21/17 17:00 03/21/17 17:00 Intake and Output: 03/21/17 03/21/17 06:59 18:59 Intake Total 1800 1280 Output Total 350 1300 Balance 1450 -20 - Medications Medications: Current Medications Albuterol/Ipratropium (Duoneb 3 Mg/0.5 Mg (3 Ml) Ud) 3 ml INH RQ6 [facility] Enoxaparin Sodium (Lovenox) 40 mg SC DAILY [facility] Last Admin: 03/21/17 10:05 Dose: 40 mg Aztreonam 2 gm/ Sodium (Chloride) 100 mls @ 200 mls/hr IVPB Q8H [facility] Last Admin: 03/21/17 13:08 Dose: 200 mls/hr Clindamycin Phosphate 600 mg/ (Sodium Chloride) 54 mls @ 100 mls/hr IVPB Q8H [facility] Last Admin: 03/21/17 15:13 Dose: 100 mls/hr Ketorolac Tromethamine (Toradol) 30 mg IVP Q6 PRN PRN Reason: Pain Last Admin: 03/21/17 09:25 Dose: 30 mg Ondansetron HCl (Zofran Inj) 4 mg IVP Q6H PRN PRN Reason: Nausea/Vomiting Last Admin: 03/20/17 20:08 Dose: 4 mg - Labs Labs: 03/21/17 06:53 03/21/17 06:53 - Constitutional Appears: Well, Non-toxic, No Acute Distress - Head Exam Head Exam: NORMAL INSPECTION - Eye Exam Eye Exam: EOMI Pupil Exam: NORMAL ACCOMODATION - ENT Exam ENT Exam: Mucous Membranes Moist - Respiratory Exam Respiratory Exam: Clear to Ausculation Bilateral, NORMAL BREATHING PATTERN - Cardiovascular Exam Cardiovascular Exam: REGULAR RHYTHM - GI/Abdominal Exam GI & Abdominal Exam: Soft, Normal Bowel Sounds. absent: Distended, Firm, Tenderness - Back Exam Back Exam: absent: CVA tenderness (L), CVA tenderness (R) - Neurological Exam Neurological Exam: Alert, Awake, Oriented x3 - Psychiatric Exam Psychiatric exam: Normal Affect, Normal Mood - Skin Skin Exam: Dry, Intact, Normal Color, Warm Assessment and Plan - Assessment and Plan (Free Text) Assessment: Phlegmon RLQ S/P Appendectomy on 03/14/17 * Management as per primary Dr. Middleton * ID (Clarencei) * Aztreonam 2 gm IV Q8H * Clindamycin 600 mg IV Q8H * F/U Blood Culture Right Hydroureternephrosis * Secondary to the phlegmon * Uro (Dalia Nguyễn) * Cystoscopy + R. Double J stent placed on 03/21 Bilateral Pleural Effusions with Bibasilar Consolidations * Aztreonam and Clindamycin * Pulm (Bennett) * Atelectasis, not PNA Prophylaxis * Toradol * Zofran/Reglan PRN N/V * Lovenox * Protonix <Jose Mccabe - Last Filed: 03/21/17 21:39> Objective - Vital Signs/Intake and Output Vital Signs (last 24 hours): Temp Pulse Resp BP Pulse Ox 98.6 F 81 20 127/85 100 03/21/17 17:00 03/21/17 20:26 03/21/17 17:00 03/21/17 17:00 03/21/17 17:00 Intake and Output: 03/21/17 03/22/17 18:59 06:59 Intake Total 1280 Output Total 1300 Balance -20 - Medications Medications: Current Medications Albuterol/Ipratropium (Duoneb 3 Mg/0.5 Mg (3 Ml) Ud) 3 ml INH RQ6 [facility] Last Admin: 03/21/17 20:19 Dose: 3 ml Enoxaparin Sodium (Lovenox) 40 mg SC DAILY [facility] Last Admin: 03/21/17 10:05 Dose: 40 mg Aztreonam 2 gm/ Sodium (Chloride) 100 mls @ 200 mls/hr IVPB Q8H [facility] Last Admin: 03/21/17 13:08 Dose: 200 mls/hr Clindamycin Phosphate 600 mg/ (Sodium Chloride) 54 mls @ 100 mls/hr IVPB Q8H [facility] Last Admin: 03/21/17 15:13 Dose: 100 mls/hr Ketorolac Tromethamine (Toradol) 30 mg IVP Q6 PRN PRN Reason: Pain Last Admin: 03/21/17 09:25 Dose: 30 mg Ondansetron HCl (Zofran Inj) 4 mg IVP Q6H PRN PRN Reason: Nausea/Vomiting Last Admin: 03/20/17 20:08 Dose: 4 mg - Labs Labs: 03/21/17 06:53 03/21/17 06:53 Attending/Attestation - Attestation I have personally seen and examined this patient.: Yes I have fully participated in the care of the patient.: Yes I have reviewed all pertinent clinical information, including history, physical exam and plan: Yes Notes (Text): 03/21/17 21:34 Patient was seen and examined at 11:35 AM 03/21/17 Exam, Assessment and Plan were gone over with the resident. ROS: eating and tolerating clear liquid diet there is some soreness in the RLQ but not as bad as it was on admission NO Other complaints Exam in addition to the above: RLQ incision without dehiscence, Soft, BSx 4, ND, NO HSM, NO CVA tenderness, Some soreness at and around RLQ surgical incision but there is NO rebound tenderness/guarding Assessments: 1). Phlegmon RLQ S/P Appendectomy on 03/14/17: management as per primary Dr. Middleton. Aztreonam 2 gm IV Q8H and Clindamycin 600 mg IV Q8H . F/U Blood Culture 2). Right Hydroureternephrosis: secondary to the phlegmon. S/P cystoscopy with retrograde double j-stent placed in right ureter by Urologist Dr. Dakotah Nguyễn on 03/20/17 night 3). Bilateral Pleural Effusions with Bibasilar Consolidations: on Aztreonam and Clindamycin as above. I spoke with Pulmonology Dr. Guajardo and reviewed CT with him and he did not believe that there were any bibasilar consolidations but that these areas were atelectasis 4). Prophylaxis: pain management with Toradol and as per primary Dr. Middleton, Dominique/Regpolly PRN N/V, Lovenox, Protonix. Thorough explaination as to above given to patient and Mom with the help of Nurse Anabela who translated in Danish. Diet has been advanced by Primary Team Dr. Magdaleno to regular diet. Jose Mccabe D.O.
[2017-03-21] MEDS: Albuterol-Ipratrop 3 mg / 0.5 (3 ml) UD INH SCH (20:19)
[2017-03-22] MEDS: Albuterol-Ipratrop 3 mg / 0.5 (3 ml) UD INH SCH ×2 (01:09→07:15)
[2017-03-22] MEDS: Aztreonam 2 GM in Sodium Chloride 0.9% 100 ML IVPB SCH (05:40)
[2017-03-22 07:24] LABS: BASO # 0.1 K/uL (0.0-0.2); BASO % 0.7 % (0.0-2.0); EOS # 0.1 K/uL (0.0-0.7); EOS % 1.5 % (0.0-4.0); HEMATOCRIT 30.4 % (34.0-47.0); LYMPH # 1.8 K/uL (1.0-4.3); LYMPH % 19.8 % (20.0-40.0); MEAN CELL VOLUME 85.4 fL (81.0-99.0); MEAN PLATELET VOLUME 8.4 fL (7.2-11.7); MONO # 0.8 K/uL (0.0-0.8); MONO % 8.7 % (0.0-10.0); RED CELL DISTRIBUTION WIDTH 12.7 % (11.5-14.5); WHITE BLOOD COUNT 9.1 K/uL (4.8-10.8)
[2017-03-22 08:01] VITALS: RESP 18
[2017-03-22 08:15] LABS: ALB/GLOB RATIO 0.8 (1.0-2.1); ALKALINE PHOSPHATASE 66 U/L (38-126); ALT/SGPT 26 U/L (9-52); AST/SGOT 23 U/L (14-36); BILIRUBIN,TOTAL 0.4 mg/dL (0.2-1.3); BLOOD UREA NITROGEN 8 mg/dL (7-17); CALCIUM 7.9 mg/dl (8.6-10.4); CARBON DIOXIDE 25 mmol/L (22-30); CHLORIDE 100 mmol/L (98-107); GFR AFRICAN-AMERICAN > 60; GLUCOSE,RANDOM 94 mg/dL (65-105); POTASSIUM 4.3 mmol/L (3.6-5.2); SODIUM 139 mmol/L (132-148)
--- NOTE | 2017-03-22 08:54 | PCM.URO ---
Urology Progress Note - Subjective Hematuria: Yes (normal post op) - Objective Lab Studies: Reviewed (ok for discharge jhome from gu standpoint and put pt follow up pt informed of plans with activated sludge attendant) Lab Results Last 24 Hours: Laboratory Results - last 24 hr 03/21/17 03/22/17 03/22/17 18:33 06:51 06:51 WBC 9.1 RBC 3.56 L Hgb 10.3 L Hct 30.4 L MCV 85.4 MCH 29.0 MCHC 34.0 RDW 12.7 Plt Count 307 MPV 8.4 Neut % (Auto) 69.3 Lymph % (Auto) 19.8 L [place] % (Auto) 8.7 Eos % (Auto) 1.5 Baso % (Auto) 0.7 Neut # 6.3 Lymph # 1.8 [place] # 0.8 Eos # 0.1 Baso # 0.1 Sodium 139 Potassium 4.3 Chloride 100 Carbon Dioxide 25 Anion Gap 18 BUN 8 Creatinine 0.8 Est GFR ( Amer) > 60 Est GFR (Non-Af Amer) > 60 Random Glucose 94 Calcium 7.9 L Total Bilirubin 0.4 AST 23 ALT 26 Alkaline Phosphatase 66 Total Protein 6.0 L Albumin 2.7 L Globulin 3.3 Albumin/Globulin Ratio 0.8 L Stool Occult Blood Negative Intake & Output: Intake & Output 03/21/17 03/22/17 03/22/17 18:59 06:59 18:59 Intake Total 1280 200 Output Total 1300 Balance -20 200 Intake: Intake, IV Amount 880 Left Antecubital 880 Oral 400 200 Output: Urine 1300 Urine, Voided 1300 Other: # Voids Urine, Voided 800 Vital Signs: Vital Signs - 24 hr 03/21/17 03/21/17 03/21/17 12:33 13:06 17:00 Temperature 98 F 98.6 F Pulse Rate 72 62 67 Respiratory 18 20 Rate Blood Pressure 114/75 127/85 O2 Sat by Pulse 99 96 100 Oximetry 03/21/17 03/21/17 03/22/17 20:26 23:25 05:35 Temperature 98.8 F 98.5 F Pulse Rate 81 89 63 Respiratory 20 20 Rate Blood Pressure 124/84 132/80 O2 Sat by Pulse 98 96 Oximetry 03/22/17 08:00 Temperature 98.2 F Pulse Rate 81 Respiratory 18 Rate Blood Pressure 111/65 O2 Sat by Pulse 96 Oximetry
--- NOTE | 2017-03-22 09:06 | RAD ---
PROCEDURE: HISTORY: Right retrograde and right ureteral stent insertion. Fluoroscopy for this COMPARISON: None TECHNIQUE: Total fluoroscopic time utilized during the procedure: 16.5 seconds. Total dose 0.71758 mGy cm squared FINDINGS: Submitted images from the current procedure: 9 Please refer to the physician's notes performing the procedure. IMPRESSION: Less than 1 hour fluoroscopic time utilized during performance of the procedure
[2017-03-22] MEDS: Enoxaparin 40 mg Syringe SC SCH (10:04)
--- NOTE | 2017-03-22 10:54 | CP.PCM.CON ---
History of Present Illness - History of Present Illness History of Present Illness: Hospitalist Consult Note (Patient was seen and examined at 10:35 AM 03/22/17 with the help of [facility] Medical Student Brunilda Pearce who translated Italian) ROS: Occasional cough productive white/yellow sputum Pain/discomfort in suprapubic area and right flank when urinating but no burning /pain in urethra Tolerating Regular Diet NO abdominal pain NO n/v/d/c (moved her bowels this morning) NO other complaints upon FULL ROS Exam: General: AAOx3, NAD HEENT: NCA, EOMI, PERRLA, NO cervical lymphadenopathy, NO thyromegaly, NO pharyngeal erythema/exudate Cardio: NS1 and NS2, NO M/R/G Resp: CTA B/L, NO R/R/W GI: BSx4, Soft, NT, ND, NO HSM, NO guarding/rebound tenderness, NO CVA tenderness, Surgical Wound in RLQ without sutures and without signs of dehiscence/erythema/exudate/edema Ext: Capillary Refill is 2 seconds, NO edema, Pulses are strong and equal Assessments: 1). Phlegmon RLQ S/P Appendectomy on 03/14/17: management as per primary Dr. Middleton. Aztreonam 2 gm IV Q8H and Clindamycin 600 mg IV Q8H . Blood Culture is Negative To Date, NO fevers, Vitals are stable. I spoke with ID Dr. Hewitt and patient may be discharge on Levaquin 750 mg 1 tablet by mouth for 7 days. Rx has been left in the chart. 2). Right Hydroureternephrosis: secondary to the phlegmon. S/P cystoscopy with retrograde double j-stent placed in right ureter by Urologist Dr. Dakotah Nguyễn on 03/20/17 night. I spoke with Dr. Dakotah Nguyễn on 03/22/17 and she is cleared from Urology Standpoint and follow up with him on 03/26/17. 3). Bilateral Pleural Effusions with Bibasilar Consolidations: on Aztreonam and Clindamycin as above. I spoke with Pulmonology Dr. Guajardo on 03/21/[address] with him and he did not believe that there were any bibasilar consolidations but that these areas were atelectasis 4). Prophylaxis: pain management with Toradol and as per primary Dr. Middleton, Zofran/Reglan PRN N/V, Lovenox, Protonix. Patient is stable from Medicine Team perspective and we will be signing off. Patient will need to follow up with Urologist Dr. Armando Nguyễn on Sunday. Patient is to call his office at [phone] to schedule this appointment. Patient will need to take Levaquin 750 mg 1 tablet by mouth 1x/day with breakfast for 7 days starting 03/23/17. Rx has been placed in the chart. Patient will need to take an over the counter Probiotic at lunch time for the next 37 days. The above was explained to patient in Italian. Jose Mccabe D.O. Past Patient History - Past Medical History & Family History Past Medical History?: Yes - Past Social History Smoking Status: Never Smoked - CARDIAC Hx Cardiac Disorders: No Hx Angina: No Hx Atrial Fibrillation: No Hx Cardia Arrhythmia: No Hx Circulatory Problems: No Hx Congestive Heart Failure: No Hx Heart Attack: No Hx Heart Murmur: No Hx Heart Transplant: No Hx Hypercholesterolemia: No Hx Hypertension: No Hx Hypotension: No Hx Internal Defibrillator: No Hx Mitral Valve Prolapse: No Hx Pacemaker: No Hx Peripheral Edema: No Hx Peripheral Vascular Disease: No - PULMONARY Hx Respiratory Disorders: No Hx Asthma: No Hx Bronchitis: No Hx Chronic Obstructive Pulmonary Disease (COPD): No Hx Emphysema: No Hx Lung Cancer: No Hx Pneumonia: No Hx Pulmonary Edema: No Hx Pulmonary Embolism: No Hx Respiratory Aspiration: No Hx Respiratory Tract Infection: No Hx Sleep Apnea: No Hx Tuberculosis: No - NEUROLOGICAL Hx Neurological Disorder: No Hx Alzheimer's Disease: No HX Cerebrovascular Accident: No Hx Dementia: No Hx Dizziness: No Hx Meningitis: No Hx Migraine: No Hx Multiple Sclerosis: No Hx Paralysis: No Hx Parkinson's Disease: No Hx Seizures: No Hx Syncope: No Hx Transient Ischemic Attacks (TIA): No Hx Vertigo: No - HEENT Hx HEENT Problems: No Hx Blind: No Hx Cataracts: No Hx Deafness: No Hx Difficulty Chewing: No Hx Epistaxis: No Hx Glaucoma: No Hx Macular Degeneration: No Hx Sinusitis: No - RENAL Hx Chronic Kidney Disease: No Hx Dialysis: No Hx Kidney Stones: No Hx Neurogenic Bladder: No Hx Pyelonephritis: No Hx Renal (Kidney) Cancer: No Hx Renal Failure: No - ENDOCRINE/METABOLIC Hx Endocrine Disorders: No Hx Adrenal Cancer: No Hx Diabetes Insipidus: No Hx Diabetes Mellitus Type 1: No Hx Diabetes Mellitus Type 2: No Hx Hyperthyroidism: No Hx Hypothyroidism: No Hx Systemic Lupus Erythematosus: No - HEMATOLOGICAL/ONCOLOGICAL Hx Blood Disorders: No Hx AIDS: No Hx Anemia: No Hx Blood Transfusions: No Hx Blood Transfusion Reaction: No Hx Bruising: No Hx Cancer: No Hx Chemotherapy: No Hx Cirrhosis: No Hx Gum Bleeding: No Hx Hemophilia: No Hx Hepatitis A: No Hx Hepatitis B: No Hx Hepatitis C: No Hx Human Immunodeficiency Virus (HIV): No Hx Leukemia: No Hx Metastesis: No Hx Shingles: No Hx Sickle Cell Disease: No Hx Unexplained Bleeding: No Hx von Willebrand's Disease: No - INTEGUMENTARY Hx Dermatological Problems: No Hx Basil Cell: No Hx Olson: No Hx Cellulitis: No Hx Eczema: No Hx Melanoma: No Hx Psoriasis: No Hx Squamous Cell: No - MUSCULOSKELETAL/RHEUMATOLOGICAL Hx Musculoskeletal Disorders: No Hx Arthritis: No Hx Back Pain: No Hx Degenerative Joint Disease: No Hx Falls: No Hx Fractures: No Hx Gout: No Hx Herniated Disk: No Hx Myasthenia Gravis: No Hx Osteoarthritis: No Hx Osteomyelitis: No Hx Osteoporosis: No Hx Rhabdomyolysis: No Hx Rheumatoid Arthritis: No Hx Spinal Stenosis: No Hx Unsteady Gait: No - GASTROINTESTINAL Hx Gastrointestinal Disorders: Yes Hx Bowel Surgery: No Hx Clostridium Difficile: No Hx Colitis: No Hx Colostomy: No Hx Constipation: No Hx Crohn's Disease: No Hx Diarrhea: No Hx Diverticulitis: No Hx Esophageal Varices: No Hx Fatty Liver Disease: No Hx Gall Bladder Disease: No Hx Gastritis: No Hx Gastroesophageal Reflux: No Hx Hemorrhoids: No Hx Ileostomy: No Hx Irritable Bowel: No Hx Liver Failure: No Hx Nausea: No Hx Pancreatitis: No HX Swallowing Problems: No Hx Ulcer: No Hx Vomiting: No Other/Comment: appendicitis - GENITOURINARY/GYNECOLOGICAL Hx Genitourinary Disorders: No Hx Bladder Cancer: No Hx Bladder Stone: No Hx Cervical Cancer: No Hx Hematuria: No Hx Incontinence: No Hx Ovarian Cancer: No Hx Postmenopausal Bleeding: No Hx Reproductive Disorders: No Hx Sexually Transmitted Disorders: No Hx Uterine Cancer: No Hx Urinary Tract Infection: No - PSYCHIATRIC Hx Psychophysiologic Disorder: No Hx Anxiety: No Hx Bipolar Disorder: No Hx Depression: No Hx Emotional Abuse: No Hx Hallucinations: No Hx Panic Symptoms: No Hx Paranoia: No Hx Post Traumatic Stress Disorder: No Hx Psychosis: No Hx Physical Abuse: No Hx Schizophrenia: No Hx Sexual Abuse: No Hx Substance Use: No - SURGICAL HISTORY Hx Surgeries: Yes Hx Abdominal Aortic Aneurysm Repair: No Hx Amputation: No Hx Angiogram: No Hx Angioplasty: No Hx Appendectomy: Yes Hx Arteriovenous Shunt: No Hx Arthroscopy: No Hx Bile Duct Stent: No Hx Breast Biopsy: No Hx Cataract Extraction: No Hx Cardiac Catheterization: No Hx Carotid Endarterectomy: No Hx Section: No Hx Cholecystectomy: No Hx Coronary Artery Bypass Graft: No Hx Coronary Stent: No Hx Dilation and Curettage: No Hx Eye Surgery: No Hx Femoral-Popliteal Bypass Graft: No Hx Gastric Bypass Surgery: No Hx Herniorrhaphy: No Hx Hysterectomy: No Hx Joint Replacement: No Hx Kidney Transplant: No Hx Liver Transplant: No Hx Mastectomy: No Hx Musculoskeletal Surgery: No Hx Open Heart Surgery: No Hx Open Reduction Internal Fixation: No Hx Orthopedic Surgery: No Hx Parathyroidectomy: No Hx Penile Implant: No Hx Pulmonary Surgery: No Hx Splenectomy: No Hx Thyroidectomy: No Hx Tonsillectomy: No Hx Tubal Ligation: No Hx Valve Replacement: No Hx Vascular Surgery: No Hx Vascular Access Device: No - ANESTHESIA Hx Anesthesia: Yes Hx Anesthesia Reactions: No Hx Malignant Hyperthermia: No Has any member of the family had a problem w/ anesthesia?: No Meds Home Medications: Home Medication List Medication Instructions Recorded Confirmed Type levoFLOXacin 750 mg in D5W 750 mg IVPB DAILY #7 tab 03/22/17 Rx [Levaquin 750MG] Allergies/Adverse Reactions: Allergies Allergy/AdvReac Type Severity Reaction Status Date / Time Penicillins Allergy RASH Verified 03/14/17 19:49 - Medications Medications: Current Medications Albuterol/Ipratropium (Duoneb 3 Mg/0.5 Mg (3 Ml) Ud) 3 ml INH RQ6 [facility] Last Admin: 03/22/17 07:15 Dose: 3 ml Enoxaparin Sodium (Lovenox) 40 mg SC DAILY [facility] Last Admin: 03/22/17 10:04 Dose: 40 mg Aztreonam 2 gm/ Sodium (Chloride) 100 mls @ 200 mls/hr IVPB Q8H [facility] Last Admin: 03/22/17 05:40 Dose: 200 mls/hr Clindamycin Phosphate 600 mg/ (Sodium Chloride) 54 mls @ 100 mls/hr IVPB Q8H [facility] Last Admin: 03/22/17 06:21 Dose: 100 mls/hr Ketorolac Tromethamine (Toradol) 30 mg IVP Q6 PRN PRN Reason: Pain Last Admin: 03/22/17 06:51 Dose: 30 mg Ondansetron HCl (Zofran Inj) 4 mg IVP Q6H PRN PRN Reason: Nausea/Vomiting Last Admin: 03/20/17 20:08 Dose: 4 mg Results - Vital Signs Recent Vital Signs: Last Vital Signs Temp 98.2 F 03/22/17 08:00 Pulse 81 03/22/17 08:00 Resp 18 03/22/17 08:00 BP 111/65 03/22/17 08:00 Pulse Ox 96 03/22/17 08:00 - Labs Result Diagrams: 03/22/17 06:51 03/22/17 06:51 Labs: Laboratory Results - last 24 hr 03/21/17 03/22/17 03/22/17 18:33 06:51 06:51 WBC 9.1 RBC 3.56 L Hgb 10.3 L Hct 30.4 L MCV 85.4 MCH 29.0 MCHC 34.0 RDW 12.7 Plt Count 307 MPV 8.4 Neut % (Auto) 69.3 Lymph % (Auto) 19.8 L [place] % (Auto) 8.7 Eos % (Auto) 1.5 Baso % (Auto) 0.7 Neut # 6.3 Lymph # 1.8 [place] # 0.8 Eos # 0.1 Baso # 0.1 Sodium 139 Potassium 4.3 Chloride 100 Carbon Dioxide 25 Anion Gap 18 BUN 8 Creatinine 0.8 Est GFR ( Amer) > 60 Est GFR (Non-Af Amer) > 60 Random Glucose 94 Calcium 7.9 L Total Bilirubin 0.4 AST 23 ALT 26 Alkaline Phosphatase 66 Total Protein 6.0 L Albumin 2.7 L Globulin 3.3 Albumin/Globulin Ratio 0.8 L Stool Occult Blood Negative
[2017-03-22 15:57] VITALS: BP 117/78; PULSE 99; TEMP 98.7; O2SAT 99
== END 2017-03-22 13:09 | disposition home or self-care (01) | DRG 418 ==
LOC: C.ER 17:46 → C.9E 03-20 00:40 → C.6T 03-20 03:35
PROVIDERS: ADMIT Surgery; ATTEND Surgery
PROC: BT1DYZZ Fluoroscopy of Right Kidney, Ureter and Bladder using Other Contrast (ICD-10-PCS; 2017-03-20)
PROC: 0T768DZ Dilation of Right Ureter with Intraluminal Device, Via Natural or Artificial Opening Endoscopic (ICD-10-PCS; principal; 2017-03-20 22:26)
DX: T81.4XXA Infection following a procedure, initial encounter (principal); J90 Pleural effusion, not elsewhere classified; N13.30 Unspecified hydronephrosis; L02.818 Cutaneous abscess of other sites; J95.89 Other postprocedural complications and disorders of respiratory system, not elsewhere classified; J98.11 Atelectasis; N13.8 Other obstructive and reflux uropathy; Y83.8 Other surgical procedures as the cause of abnormal reaction of the patient, or of later complication, without mention of misadventure at the time of the procedure; R31.9 Hematuria, unspecified

== ENCOUNTER 2017-03-28 11:18 | Inpatient (IN) | payer OTHER ==
--- NOTE | 2017-03-28 12:03 | C.PDOC ---
History Of Present Illness 31 y/o FEMALE REFERRED BY DR. PETTIT TO R/O INTRA-ABDOMINAL ABSCESS. PER DR. PETTIT, PATIENT S/P OPEN APPENDECTOMY DUE TO PERF APPY 2 WEEKS AGO. 1 WEEK AGO PT C/O RLQ ABDOMINAL PAIN, WITH PHLEGMON AND HYDROURETER CONFIRMED ON CT SCAN, S/P STENT PLACED BY DR. Dalia LARRY. PATIENT ON LEVAQUIN FOR 6 DAYS. TODAY, NEW ONSET FEVER, T-MAX 101 LAST NIGHT. S/P ADVIL AT 0900 TODAY. CURRENTLY C/O PERSISTENT RLQ PAIN, RADIATES TO RIGHT FLANK, INITIALLY IMPROVED WITH STENT BUT NOW BACK AGAIN SIMILAR TO PRIOR. PATIENT ALSO C/O DYSURIA AND PELVIC CRAMPING. DENIES VOMITING, DIARRHEA, HEMATURIA. EXAM ABD: RLQ TENDERNESS, SPARING INCISION SITE, -R/G SKIN: HEALING POST-OP WOUND, NO SIGNS OF INFECTION, NON-TENDER Time Seen by Provider: 03/28/17 11:21 Chief Complaint (Nursing): Abdominal Pain History Per: Patient History/Exam Limitations: no limitations Onset/Duration Of Symptoms: Days, Persistent Current Symptoms Are (Timing): Still Present Location Of Pain/Discomfort: RLQ Radiation Of Pain To:: Flank Quality Of Discomfort: Cramping, "Pain" Associated Symptoms: Fever, Urinary Symptoms. denies: Nausea, Vomiting, Diarrhea Recent travel outside of the [place]: No Abnormal Vaginal Bleeding: No Past Medical History Reviewed: Historical Data, Nursing Documentation, Vital Signs Vital Signs: Last Vital Signs Temp 98.6 F 03/28/17 16:21 Pulse 88 03/28/17 16:21 Resp 20 03/28/17 16:21 BP 99/59 L 03/28/17 16:21 Pulse Ox 99 03/28/17 17:30 Surgical History: Appendectomy - [facility] Procedures DILATION OF RIGHT URETER WITH INTRALUMINAL DEVICE, ENDO (03/20/17) DRAINAGE OF PERITONEAL CAVITY, OPEN APPROACH (03/14/17) FLUOROSCOPY OF KIDNEY, URETER, BLADDER, R USING OTH CONTRAST (03/20/17) RESECTION OF APPENDIX, OPEN APPROACH (03/14/17) Family History: States: Unknown Family Hx - Social History Hx Alcohol Use: No Hx Substance Use: No - Immunization History Hx Tetanus Toxoid Vaccination: No Hx Influenza Vaccination: No Hx Pneumococcal Vaccination: Yes Review Of Systems Except As Marked, All Systems Reviewed And Found Negative. Constitutional: Positive for: Fever Cardiovascular: Negative for: Chest Pain Respiratory: Negative for: Cough, Shortness of Breath, Wheezing Gastrointestinal: Positive for: Abdominal Pain Genitourinary: Positive for: Dysuria, Pelvic Pain Skin: Negative for: Rash Physical Exam - Physical Exam Appears: Non-toxic, No Acute Distress Skin: Warm, Dry Head: Atraumatic, Normacephalic Oral Mucosa: Moist Chest: Symmetrical Cardiovascular: Rhythm Regular, No Murmur Respiratory: Normal Breath Sounds, No Rales, No Rhonchi, No Wheezing Gastrointestinal/Abdominal: Soft, Tenderness (RLQ TENDERNESS. INCISION SITE NON- TENDER.), No Guarding, No Rebound, Other (SKIN: HEALING POST-OP WOUND, NO SIGNS OF INFECTION, NON-TENDER) Back: Normal Inspection Extremity: Normal ROM, Capillary Refill (< 2 SEC.) Neurological/Psych: Oriented x3, Normal Speech, Normal Cognition ED Course And Treatment - Laboratory Results Result Diagrams: 03/28/17 12:16 03/28/17 12:16 O2 Sat by Pulse Oximetry: 99 (RA) Pulse Ox Interpretation: Normal - CT Scan/US CT ABDOMEN/PELVIS Other Rad Studies (CT/US): Read By Radiologist, Radiology Report Reviewed CT/US Interpretation: FINDINGS: LOWER THORAX: 4 mm subpleural nodule in right middle lobe. Trace left pleural effusion and left lower lobe subsegmental atelectasis. LIVER: Unremarkable. No gross lesion or ductal dilatation. GALLBLADDER AND BILE DUCTS: Unremarkable. PANCREAS: Unremarkable. No gross lesion or ductal dilatation. SPLEEN: Unremarkable. ADRENALS: Unremarkable. No mass. KIDNEYS AND URETERS: Mild right hydronephrosis. Right ureteral stent. No left hydronephrosis. No renal mass or calculus. VASCULATURE: Unremarkable. No aortic aneurysm. BOWEL: No bowel obstruction. Marked focal mural thickening of the distal ileum proximal to the terminal ileum, over a segment of approximately 7 cm, where it passes adjacent to an inflammatory fluid collection. APPENDIX: Status post appendectomy. PERITONEUM: Trace fluid in the cul-de-sac. Several right-sided pelvic fluid collections, 1 measuring approximately 2.9 x 3.4 cm and the 2nd more caudally measuring 2.9 x 2.7 cm. Between these 2 collections there is a probable phlegmonous collection measuring 2.1 x 3.0 cm. Likely abscess ease. No left-sided collection identified. LYMPH NODES: Shotty subcentimeter pelvic and retroperitoneal lymph nodes, likely reactive. BLADDER: Unremarkable. REPRODUCTIVE: Unremarkable uterus. BONES: No acute fracture. OTHER FINDINGS: None. IMPRESSION: Two pelvic fluid collections likely representing abscess ease. There is a 3rd phlegmonous collection between these 2 abscess ease. Likely incipient abscess. Focal thickening of a 7 cm segment of distal ileum as it passes adjacent to the most cephalic abscess. Right hydronephrosis and right ureteral stent. This is likely secondary to the right-sided pelvic abscesses. Progress - Re-Evaluation Re-evaluation Note: 03/28/17 12:13 ZOFRAN, MORPHINE, IVFs. LABS, UA, CT SCAN ORDERED. ED OBSERVATION Date of observation admission: 03/28/17 Time of observation admission: 11:30 - Observation admission statement Patient is being placed in observation because:: abd pain, fever s/p appy - Goals of Observation Goals of observation are:: RO ABSCESS, ACUTE ABD - Progress Note Progress Note: 03/28/17 16:[address] RESULTS D/W DR PETTIT 03/28/17 17:12 PT REQUESTING AMA. D/W DR PETTIT, STATES WILL EVAL PT IN ER AFTER FINISHING IN O.R. D/W PT VIA STEWARDING SUPERVISOR: ADVISED OF RISKS OF LEAVING AMA, INCLUDING WORSENING INFECTION, DISABILITY AND . FAMILY @ BEDSIDE. PT STRONGLY ADVISED TO WAIT FOR EVAL BY DR PETTIT. PT AGREES W PLAN. WILL START ABX. Disposition Counseled Patient/Family Regarding: Studies Performed, Diagnosis - Disposition Disposition: HOSPITALIZED Disposition Time: 18:00 Condition: SERIOUS - Clinical Impression Clinical Impression: Intra-abdominal abscess post-procedure - Scribe Statement The provider has reviewed the documentation as recorded by the Scribe SM All medical record entries made by the Scribe were at my direction and personally dictated by me. I have reviewed the chart and agree that the record accurately reflects my personal performance of the history, physical exam, medical decision making, and the department course for this patient. I have also personally directed, reviewed, and agree with the discharge instructions and disposition. Decision To Admit - Pt Status Changed To: Hospital Disposition Of: Inpatient - Admit Certification Admit to Inpatient:: After my assessment, the patient will require hospitalization for at least two midnights. This is because of the severity of symptoms shown, intensity of services needed, and/or the medical risk in this patient being treated as an outpatient. - InPatient: Physician Admission Certification:: SEE NOTE - . Bed Request Type: Regular Admitting Physician: Robert Pettit Patient Diagnosis: Intra-abdominal abscess post-procedure
[2017-03-28] MEDS ORDERED: Iohexol 240 (50 ml) PO STA (12:04)
[2017-03-28] MEDS ORDERED: Sodium Chloride 0.9% 1,000 ML IV ONE (12:04)
[2017-03-28 12:22] LABS: BASO # 0.1 K/uL (0.0-0.2); BASO % 0.5 % (0.0-2.0); EOS # 0.1 K/uL (0.0-0.7); EOS % 0.6 % (0.0-4.0); HEMATOCRIT 34.8 % (34.0-47.0); LYMPH # 1.2 K/uL (1.0-4.3); LYMPH % 10.6 % (20.0-40.0); MEAN CELL VOLUME 85.1 fL (81.0-99.0); MEAN CORPUSCULAR HEMOGLOBIN 28.4 pg (27.0-31.0); MEAN CORPUSCULAR HGB CONC 33.3 g/dL (33.0-37.0); MEAN PLATELET VOLUME 8.3 fL (7.2-11.7); MONO # 0.6 K/uL (0.0-0.8); MONO % 5.4 % (0.0-10.0); RED CELL DISTRIBUTION WIDTH 12.9 % (11.5-14.5); WHITE BLOOD COUNT 11.7 K/uL (4.8-10.8)
[2017-03-28 12:24] LABS: RBC URINE 235 /hpf (0-3); URINE BACTERIA OCC (<OCC); URINE BILIRUBIN NEGATIVE (NEGATIVE); URINE BLOOD 3+ (NEGATIVE); URINE COLOR Yellow (YELLOW); URINE GLUCOSE (UA) NORMAL (Normal); URINE KETONE NEGATIVE (NEGATIVE); URINE LEUKOCYTE ESTERASE 1+ Leu/uL (Negative); URINE PROTEIN 1+ mg/dL (NEGATIVE); URINE UROBILINOGEN NORMAL mg/dL (0.2-1.0); WBC URINE 25 /hpf (0-5)
[2017-03-28 12:30] LABS: CHLORIDE 98 mmol/L (98-107)
[2017-03-28] MEDS ORDERED: Sodium Chloride 0.9% 1,000 ML ONE (12:30)
[2017-03-28] MEDS ORDERED: Iohexol 240 (50 ml) ONE (12:30)
[2017-03-28 12:31] LABS: POTASSIUM 3.9 mmol/L (3.6-5.2); SODIUM 140 mmol/L (132-148)
[2017-03-28 12:33] LABS: BILIRUBIN,TOTAL 0.6 mg/dL (0.2-1.3); CARBON DIOXIDE 27 mmol/L (22-30); GFR AFRICAN-AMERICAN > 60
[2017-03-28 12:34] LABS: ALB/GLOB RATIO 0.8 (1.0-2.1); ALKALINE PHOSPHATASE 90 U/L (38-126); ALT/SGPT 65 U/L (9-52); AST/SGOT 47 U/L (14-36); BLOOD UREA NITROGEN 13 mg/dL (7-17); CALCIUM 9.2 mg/dl (8.6-10.4); GLUCOSE,RANDOM 110 mg/dL (65-105); TOTAL PROTEIN 8.2 g/dL (6.3-8.3)
[2017-03-28] MEDS ORDERED: Iodixanol 320 MG/ML 100 ML BOTTLE IV ONE (14:54)
--- NOTE | 2017-03-28 17:20 | CT ---
PROCEDURE: CT Abdomen and Pelvis with contrast HISTORY: RLQ abd pain FEVER SP APPY, URETERAL STENT COMPARISON: 03/19/2017 TECHNIQUE: Contrast dose: 100 mL Visipaque 320 Radiation dose: Total exam DLP = 729.67 mGy-cm. This CT exam was performed using one or more of the following dose reduction techniques: Automated exposure control, adjustment of the mA and/or kV according to patient size, and/or use of iterative reconstruction technique. FINDINGS: LOWER THORAX: 4 mm subpleural nodule in right middle lobe. Trace left pleural effusion and left lower lobe subsegmental atelectasis. LIVER: Unremarkable. No gross lesion or ductal dilatation. GALLBLADDER AND BILE DUCTS: Unremarkable. PANCREAS: Unremarkable. No gross lesion or ductal dilatation. SPLEEN: Unremarkable. ADRENALS: Unremarkable. No mass. KIDNEYS AND URETERS: Mild right hydronephrosis. Right ureteral stent. No left hydronephrosis. No renal mass or calculus. VASCULATURE: Unremarkable. No aortic aneurysm. BOWEL: No bowel obstruction. Marked focal mural thickening of the distal ileum proximal to the terminal ileum, over a segment of approximately 7 cm, where it passes adjacent to an inflammatory fluid collection. APPENDIX: Status post appendectomy. PERITONEUM: Trace fluid in the cul-de-sac. Several right-sided pelvic fluid collections, 1 measuring approximately 2.9 x 3.4 cm and the 2nd more caudally measuring 2.9 x 2.7 cm. Between these 2 collections there is a probable phlegmonous collection measuring 2.1 x 3.0 cm. Likely abscess ease. No left-sided collection identified. LYMPH NODES: Shotty subcentimeter pelvic and retroperitoneal lymph nodes, likely reactive. BLADDER: Unremarkable. REPRODUCTIVE: Unremarkable uterus. BONES: No acute fracture. OTHER FINDINGS: None. IMPRESSION: Two pelvic fluid collections likely representing abscess ease. There is a 3rd phlegmonous collection between these 2 abscess ease. Likely incipient abscess. Focal thickening of a 7 cm segment of distal ileum as it passes adjacent to the most cephalic abscess. Right hydronephrosis and right ureteral stent. This is likely secondary to the right-sided pelvic abscesses.
[2017-03-28] MEDS ORDERED: Ciprofloxacin 400mg/200ml D5W 400 MG/200 ML BAG IV STA (17:27)
[2017-03-28] MEDS ORDERED: metroNIDAZOLE IV 500 mg/100 ml 500 MG/100 ML BAG IV SCH (17:30)
[2017-03-28] MEDS ORDERED: metroNIDAZOLE IV 500 mg/100 ml 500 MG/100 ML BAG IVPB STA (17:43)
[2017-03-28] MEDS ORDERED: metroNIDAZOLE IV 500 mg/100 ml 500 MG/100 ML BAG ONE (17:47)
[2017-03-28] MEDS ORDERED: Ciprofloxacin 400mg/200ml D5W 400 MG/200 ML BAG IVPB ONE (19:54)
--- NOTE | 2017-03-28 22:24 | CP.PCM.CON ---
<Hannah CALVILLOZena Anne - Last Filed: 03/28/17 22:20> History of Present Illness - History of Present Illness History of Present Illness: Medicine Consult Note Patient is a 31 year old female with no past medical history admitted for pelvic abscess. Patient had open appendectomy with Dr. Magdaleno two weeks ago secondary to perforated appendix. Patient also had right ureter stent placed with Dr. Nguyễn for hydronephrosis secondary to pelvic abscess and phlegmon. Patient states that she took Levaquin after she was discharged and was to finish prescription tomorrow. Patient states she has had chills and subjective fever since last night. Patient also complaining of back pain by right kidney. Patient also complains of 3 episodes of watery diarrhea that began today. Patient states she is nausea but denies vomiting. Patient also admits to dysuria. Patient denies weight and appetite changes. 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 absent: Vomiting - Genitourinary Genitourinary: Dysuria - Musculoskeletal Musculoskeletal: Back Pain - Integumentary Integumentary: absent: Rash - Neurological Neurological: absent: Dizziness, Weakness Past Patient History - Infectious Disease Hx of Infectious Diseases: None - Past Medical History & Family History Past Medical History?: Yes - Past Social History Smoking Status: Never Smoked - CARDIAC Hx Atrial Fibrillation: No Hx Cardia Arrhythmia: No Hx Congestive Heart Failure: No Hx Hypercholesterolemia: No Hx Hypertension: No Hx Mitral Valve Prolapse: No Hx Pacemaker: No Hx Peripheral Edema: No - PULMONARY Hx Asthma: No Hx Bronchitis: No Hx Chronic Obstructive Pulmonary Disease (COPD): No Hx Emphysema: No Hx Pneumonia: No Hx Pulmonary Embolism: No Hx Sleep Apnea: No - NEUROLOGICAL Hx Alzheimer's Disease: No Hx Dementia: No Hx Migraine: No Hx Multiple Sclerosis: No Hx Parkinson's Disease: No Hx Seizures: No Hx Transient Ischemic Attacks (TIA): No - HEENT Hx HEENT Problems: No Hx Blind: No Hx Cataracts: No Hx Deafness: No Hx Difficulty Chewing: No Hx Epistaxis: No Hx Glaucoma: No Hx Macular Degeneration: No - RENAL Hx Chronic Kidney Disease: No Hx Kidney Stones: No - ENDOCRINE/METABOLIC Hx Hyperthyroidism: No Hx Hypothyroidism: No - HEMATOLOGICAL/ONCOLOGICAL Hx Anemia: No Hx Human Immunodeficiency Virus (HIV): No Hx Sickle Cell Disease: No - INTEGUMENTARY Hx Dermatological Problems: No Hx Basil Cell: No Hx Olson: No Hx Cellulitis: No Hx Eczema: No Hx Melanoma: No Hx Psoriasis: No Hx Squamous Cell: No - MUSCULOSKELETAL/RHEUMATOLOGICAL Hx Arthritis: No Hx Fractures: No Hx Osteoporosis: No Hx Rheumatoid Arthritis: No - GASTROINTESTINAL Hx Crohn's Disease: No Hx Diverticulitis: No Hx Gall Bladder Disease: No Hx Gastritis: No Hx Pancreatitis: No - GENITOURINARY/GYNECOLOGICAL Hx Sexually Transmitted Disorders: No - PSYCHIATRIC Hx Substance Use: No - SURGICAL HISTORY Hx Appendectomy: Yes - ANESTHESIA Hx Anesthesia: Yes Hx Anesthesia Reactions: No Hx Malignant Hyperthermia: No Meds Allergies/Adverse Reactions: Allergies Allergy/AdvReac Type Severity Reaction Status Date / Time Penicillins Allergy RASH Verified 03/28/17 11:26 - Medications Medications: Current Medications Docusate Sodium (Colace) 100 mg PO BID [facility] Enoxaparin Sodium (Lovenox) 30 mg SC 1000,2200 [facility] Potassium Chloride/Dextrose/Sod Cl (Potassium Chl 20 Meq In D5-1/2ns) 1,000 mls @ 100 mls/hr IV .Q10H [facility] Vancomycin HCl 1,000 mg/ (Sodium Chloride) 250 mls @ 166.6 mls/hr IVPB Q12H [facility] Metronidazole (Flagyl) 500 mg in 100 mls @ 100 mls/hr IVPB Q8 [facility] Aztreonam 2 gm/ Sodium (Chloride) 100 mls @ 200 mls/hr IVPB Q8H [facility] Ketorolac Tromethamine (Toradol) 30 mg IVP Q6 PRN PRN Reason: pain Stop: 04/02/17 18:46 Pantoprazole Sodium (Protonix Inj) 40 mg IVP DAILY [facility] Physical Exam - Constitutional Appears: Non-toxic, No Acute Distress - Head Exam Head Exam: ATRAUMATIC, NORMOCEPHALIC - Eye Exam Eye Exam: EOMI - ENT Exam ENT Exam: Mucous Membranes Moist - Respiratory Exam Respiratory Exam: Clear to Auscultation Bilateral, NORMAL BREATHING PATTERN. absent: Rales, Rhonchi, Wheezes - Cardiovascular Exam Cardiovascular Exam: +S1, +S2 - GI/Abdominal Exam GI & Abdominal Exam: Normal Bowel Sounds, Soft, Tenderness (RLQ) Additional comments: scar RLQ from prior appendectomy - Extremities Exam Extremities exam: Positive for: normal inspection. Negative for: pedal edema - Back Exam Back exam: CVA tenderness (R) - Neurological Exam Neurological exam: Alert, Oriented x3 - Psychiatric Exam Psychiatric exam: Normal Affect - Skin Skin Exam: Dry, Warm Results - Vital Signs Recent Vital Signs: Last Vital Signs Temp 100.7 F H 03/28/17 20:51 Pulse 108 H 03/28/17 20:51 Resp 20 03/28/17 20:51 BP 109/72 03/28/17 20:51 Pulse Ox 100 03/28/17 20:51 - Labs Result Diagrams: 03/28/17 12:16 03/28/17 12:16 Assessment & Plan - Assessment and Plan (Free Text) Assessment: Pelvic Abscess to be managed by Dr. Magdaleno, surgery Dr. Hewitt, ID, on the case continue IV antibiotics as per Dr. Hewitt- Aztreonam, flagyl, vancomycin Hydronephrosis pt s/p right ureteral stent with Dr. Nguyễn CT abd/pelvis: right hydronephrosis to be managed as per Dr. Nguyễn Diarrhea patient with history recent IV antibiotic use will check stool studies, C. diff will start probiotic Prophylactic measure lovenox 30mg SC Q12 protonix 40mg daily Plan D/W Dr. Nelson <Kelvin Nelson - Last Filed: 03/29/17 06:23> Meds - Medications Medications: Current Medications Docusate Sodium (Colace) 100 mg PO BID [facility] Enoxaparin Sodium (Lovenox) 30 mg SC 1000,2200 [facility] Last Admin: 03/29/17 00:11 Dose: Not Given Potassium Chloride/Dextrose/Sod Cl (Potassium Chl 20 Meq In D5-1/2ns) 1,000 mls @ 100 mls/hr IV .Q10H [facility] Last Admin: 03/28/17 22:59 Dose: 100 mls/hr Metronidazole (Flagyl) 500 mg in 100 mls @ 100 mls/hr IVPB Q8 [facility] Last Admin: 03/29/17 05:01 Dose: 100 mls/hr Aztreonam 2 gm/ Sodium (Chloride) 100 mls @ 200 mls/hr IVPB Q8H [facility] Last Admin: 03/29/17 00:11 Dose: 200 mls/hr Vancomycin/Sodium Chloride (Vancocin) 1 gm in 200 mls @ 166.6 mls/hr IVPB Q12H [facility] Stop: 04/02/17 22:01 Last Admin: 03/29/17 00:09 Dose: 166.6 mls/hr Ketorolac Tromethamine (Toradol) 30 mg IVP Q6 PRN PRN Reason: pain Stop: 04/02/17 18:46 Last Admin: 03/29/17 04:55 Dose: 30 mg Pantoprazole Sodium (Protonix Inj) 40 mg IVP DAILY [facility] Pneumococcal Polyvalent Vaccine (Pneumovax 23 Vaccine) 0.5 ml IM .ONCE ONE Stop: 03/31/17 10:01 Saccharomyces Boulardii (Florastor) 250 mg PO BID [facility] Last Admin: 03/28/17 23:03 Dose: 250 mg Results - Vital Signs Recent Vital Signs: Last Vital Signs Temp 101.1 F H 03/29/17 00:00 Pulse 74 03/29/17 00:00 Resp 18 03/29/17 00:00 BP 117/74 03/29/17 00:00 Pulse Ox 100 03/29/17 00:00 - Labs Result Diagrams: 03/28/17 12:16 03/28/17 12:16 Assessment & Plan - Date & Time Date: 03/29/17 (I have seen and examined the patient. I agree with the findings and plan of care as documented by Dr. Rueda. Patient s/p surgery with Dr Magdaleno. Then found to have pelvic abscess with resulting hydronephrosis. Urology on consult. ID on consult. Management as per ID and surgery. Continue current antibiotics. Follow vitals closely. Also with diarrhea. May be secondary to antibiotics. Check stool studies. Monitor for acute changes.) Time: 06:19 Attending/Attestation - Attestation I have personally seen and examined this patient.: Yes I have fully participated in the care of the patient.: Yes I have reviewed all pertinent clinical information: Yes
[2017-03-28] MEDS: metroNIDAZOLE IV 500 mg/100 ml 500 MG/100 ML BAG IVPB SCH (22:53)
[2017-03-28] MEDS: Potassium Ch 20mEq in D5-1/2NS 1,000 ML IV SCH (22:59)
[2017-03-28] MEDS: Saccharomyces Boulardi 250 mg Cap PO SCH (23:03)
[2017-03-29] MEDS: Vancomycin 1 gm/NS 200 ml 1 GM/200 ML BAG IVPB SCH ×3 (00:09→23:27)
[2017-03-29] MEDS: Enoxaparin 30 mg Syringe SC SCH ×3 (00:11→21:52)
[2017-03-29] MEDS: Aztreonam 2 GM in Sodium Chloride 0.9% 100 ML IVPB SCH ×3 (00:11→17:54)
[2017-03-29] MEDS: Potassium Ch 20mEq in D5-1/2NS 1,000 ML IV SCH (04:45)
[2017-03-29] MEDS: metroNIDAZOLE IV 500 mg/100 ml 500 MG/100 ML BAG IVPB SCH ×3 (05:01→21:46)
[2017-03-29] MEDS: Saccharomyces Boulardi 250 mg Cap PO SCH ×2 (10:20→17:54)
[2017-03-29] MEDS ORDERED: Midazolam 2 MG/2 ML VIAL ONE ×2 (11:50)
[2017-03-29] MEDS ORDERED: Propofol 10 mg/ml Inj (20 ML) ONE (11:50)
--- NOTE | 2017-03-29 12:57 | PCM.IRP ---
History of Present Illness - History of Present Illness History of Present Illness: IR consulted for abdominal abscess drainage. CT reviewed and collections are small and not a good location for percutaneous drainage. Pt was brought to IR for drainage today. CT scan was repeated and the anterior collection is slightly smaller and deep to the transverse colon, making a percutaneous approach for drainage not possible. Recommend: Repeating CT scan in 5-7 days. If the collections are bigger, will drain provided there is safe approach. Objective - Vital Signs/Intake and Output Vital Signs (last 24 hours): Vital Signs - 24 hr 03/28/17 03/28/17 03/28/17 18:01 20:20 20:51 Temperature 99.5 F 100.7 F H Pulse Rate 97 H 108 H Respiratory 18 20 Rate Blood Pressure 106/60 109/72 O2 Sat by Pulse 99 100 100 Oximetry 03/29/17 03/29/17 00:00 07:58 Temperature 101.1 F H 98.5 F Pulse Rate 74 79 Respiratory 18 20 Rate Blood Pressure 117/74 102/68 O2 Sat by Pulse 100 99 Oximetry Intake and Output (last 12 hours): Intake & Output 03/28/17 03/29/17 03/29/17 18:59 06:59 18:59 Intake Total 600 Balance 600 Intake: Intake, IV Amount 400 Right Antecubital 400 Oral 200 Other: Voiding Method Toilet - Medications Medications: Current Medications Docusate Sodium (Colace) 100 mg PO BID [facility] Last Admin: 03/29/17 10:20 Dose: Not Given Enoxaparin Sodium (Lovenox) 30 mg SC 1000,2200 [facility] Last Admin: 03/29/17 10:20 Dose: Not Given Potassium Chloride/Dextrose/Sod Cl (Potassium Chl 20 Meq In D5-1/2ns) 1,000 mls @ 100 mls/hr IV .Q10H [facility] Last Admin: 03/28/17 22:59 Dose: 100 mls/hr Metronidazole (Flagyl) 500 mg in 100 mls @ 100 mls/hr IVPB Q8 [facility] Last Admin: 03/29/17 05:01 Dose: 100 mls/hr Aztreonam 2 gm/ Sodium (Chloride) 100 mls @ 200 mls/hr IVPB Q8H [facility] Last Admin: 03/29/17 08:25 Dose: 200 mls/hr Vancomycin/Sodium Chloride (Vancocin) 1 gm in 200 mls @ 166.6 mls/hr IVPB Q12H [facility] Stop: 04/02/17 22:01 Last Admin: 03/29/17 12:35 Dose: 166.6 mls/hr Ketorolac Tromethamine (Toradol) 30 mg IVP Q6 PRN PRN Reason: pain Stop: 04/02/17 18:46 Last Admin: 03/29/17 04:55 Dose: 30 mg Pantoprazole Sodium (Protonix Inj) 40 mg IVP DAILY [facility] Last Admin: 03/29/17 10:28 Dose: 40 mg Pneumococcal Polyvalent Vaccine (Pneumovax 23 Vaccine) 0.5 ml IM .ONCE ONE Stop: 03/31/17 10:01 Saccharomyces Boulardii (Florastor) 250 mg PO BID [facility] Last Admin: 03/29/17 10:20 Dose: Not Given - Labs Labs (last 24 hours): Laboratory Results - last 24 hr 03/29/17 09:36 Urine HCG, Qual Negative
--- NOTE | 2017-03-29 19:51 | CP.PCM.CON ---
History of Present Illness - History of Present Illness History of Present Illness: 31 year old female with no past medical history admitted for pelvic abscess. Patient had open appendectomy with Dr. Magdaleno two weeks ago secondary to perforated appendix. Patient also had right ureter stent placed with Dr. Nguyễn for hydronephrosis secondary to pelvic abscess and phlegmon. Patient states that she took Levaquin after she was discharged and was to finish prescription tomorrow. ID consulted for antibiiotic manganement all cultures neg so far IR drainage not possible as collections too small as per radiology PMHx: denies Meds: denies PSHx: appendectomy, ureter stent, cyst removal from coccyx Fam Hx: Mother with HLD, Father- DM, HTN SocialHx: denies tobacco, alcohol, drugs, lives with mom, works parts finisher as haircutter Past Patient History - Infectious Disease Hx of Infectious Diseases: None - Past Medical History & Family History Past Medical History?: Yes - Past Social History Smoking Status: Never Smoked - CARDIAC Hx Atrial Fibrillation: No Hx Cardia Arrhythmia: No Hx Congestive Heart Failure: No Hx Hypercholesterolemia: No Hx Hypertension: No Hx Mitral Valve Prolapse: No Hx Pacemaker: No Hx Peripheral Edema: No - PULMONARY Hx Asthma: No Hx Bronchitis: No Hx Chronic Obstructive Pulmonary Disease (COPD): No Hx Emphysema: No Hx Pneumonia: No Hx Pulmonary Embolism: No Hx Sleep Apnea: No - NEUROLOGICAL Hx Alzheimer's Disease: No Hx Dementia: No Hx Migraine: No Hx Multiple Sclerosis: No Hx Parkinson's Disease: No Hx Seizures: No Hx Transient Ischemic Attacks (TIA): No - HEENT Hx HEENT Problems: No Hx Blind: No Hx Cataracts: No Hx Deafness: No Hx Difficulty Chewing: No Hx Epistaxis: No Hx Glaucoma: No Hx Macular Degeneration: No - RENAL Hx Chronic Kidney Disease: No Hx Kidney Stones: No - ENDOCRINE/METABOLIC Hx Hyperthyroidism: No Hx Hypothyroidism: No - HEMATOLOGICAL/ONCOLOGICAL Hx Anemia: No Hx Human Immunodeficiency Virus (HIV): No Hx Sickle Cell Disease: No - INTEGUMENTARY Hx Dermatological Problems: No Hx Basil Cell: No Hx Olson: No Hx Cellulitis: No Hx Eczema: No Hx Melanoma: No Hx Psoriasis: No Hx Squamous Cell: No - MUSCULOSKELETAL/RHEUMATOLOGICAL Hx Arthritis: No Hx Fractures: No Hx Osteoporosis: No Hx Rheumatoid Arthritis: No - GASTROINTESTINAL Hx Crohn's Disease: No Hx Diverticulitis: No Hx Gall Bladder Disease: No Hx Gastritis: No Hx Pancreatitis: No - GENITOURINARY/GYNECOLOGICAL Hx Sexually Transmitted Disorders: No - PSYCHIATRIC Hx Substance Use: No - SURGICAL HISTORY Hx Appendectomy: Yes - ANESTHESIA Hx Anesthesia: Yes Hx Anesthesia Reactions: No Hx Malignant Hyperthermia: No Meds Allergies/Adverse Reactions: Allergies Allergy/AdvReac Type Severity Reaction Status Date / Time Penicillins Allergy RASH Verified 03/28/17 11:26 - Medications Medications: Current Medications Docusate Sodium (Colace) 100 mg PO BID [facility]S [facility] Last Admin: 03/29/17 17:53 Dose: 100 mg Enoxaparin Sodium (Lovenox) 30 mg SC 1000,2200 [facility] 234 [facility]S AT [facility] Last Admin: 03/29/17 10:20 Dose: Not Given Potassium Chloride/Dextrose/Sod Cl (Potassium Chl 20 Meq In D5-1/2ns) 1,000 mls @ 100 mls/hr IV .Q10H [facility] 234 [facility]S AT [facility] Last Admin: 03/29/17 04:45 Dose: Not Given Metronidazole (Flagyl) 500 mg in 100 mls @ 100 mls/hr IVPB Q8 [facility] 234 [facility]S AT [facility] Last Admin: 03/29/17 14:12 Dose: 100 mls/hr Aztreonam 2 gm/ Sodium (Chloride) 100 mls @ 200 mls/hr IVPB Q8H [facility] 234 [facility]S AT [facility] Last Admin: 03/29/17 17:54 Dose: 200 mls/hr Vancomycin/Sodium Chloride (Vancocin) 1 gm in 200 mls @ 166.6 mls/hr IVPB Q12H [facility] 234 [facility]S [facility] Stop: 04/02/17 22:01 Last Admin: 03/29/17 12:35 Dose: 166.6 mls/hr Ketorolac Tromethamine (Toradol) 30 mg IVP Q6 PRN PRN Reason: pain Stop: 04/02/17 18:46 Last Admin: 03/29/17 19:35 Dose: 30 mg Pantoprazole Sodium (Protonix Inj) 40 mg IVP DAILY [facility]S [facility] Last Admin: 03/29/17 10:28 Dose: 40 mg Pneumococcal Polyvalent Vaccine (Pneumovax 23 Vaccine) 0.5 ml IM .ONCE ONE Stop: 03/31/17 10:01 Saccharomyces Boulardii (Florastor) 250 mg PO BID [facility] 234 [facility]S AT [facility] Last Admin: 03/29/17 17:54 Dose: 250 mg Results - Vital Signs Recent Vital Signs: Last Vital Signs Temp 100.0 F H 03/29/17 15:00 Pulse 92 H 03/29/17 15:00 Resp 20 03/29/17 15:00 BP 125/84 03/29/17 15:00 Pulse Ox 100 03/29/17 15:00 - Labs Result Diagrams: 03/28/17 12:16 03/28/17 12:16 Labs: Laboratory Results - last 24 hr 03/29/17 03/29/17 09:12 09:36 Urine HCG, Qual Negative C. difficile Ag & Toxin Negative
--- NOTE | 2017-03-29 21:36 | CP.PCM.PN ---
Subjective - Date & Time of Evaluation Date of Evaluation: 03/29/17 Time of Evaluation: 21:34 - Subjective Subjective: PGY1 Note for Dr. Carrington HPI: 31 F Comoran speaking patient examined at bedside. Patient was anxious and diaphoretic upon exam. Patient states she spiked a fever of 100.7 around midnight. Patient denies any acute events over night. She explains that she is nervous about her condition and that she is "afraid that the abscess/infection will go to her heart and she will ." Medicine spoke with her to reaffirm her and clarify the situation. After the conversation, the patient seemed calmer about her condition and the future procedures that she is scheduled for. Patient denies SOB, pain in chest, n,v,c. Objective - Vital Signs/Intake and Output Vital Signs (last 24 hours): Temp Pulse Resp BP Pulse Ox 100.0 F H 92 H 20 125/84 100 03/29/17 15:00 03/29/17 15:00 03/29/17 15:00 03/29/17 15:00 03/29/17 15:00 Intake and Output: 03/29/17 03/30/17 18:59 06:59 Intake Total 950 Balance 950 - Medications Medications: Current Medications Docusate Sodium (Colace) 100 mg PO BID [facility] Last Admin: 03/29/17 17:53 Dose: 100 mg Enoxaparin Sodium (Lovenox) 30 mg SC 1000,2200 [facility] Last Admin: 03/29/17 10:20 Dose: Not Given Potassium Chloride/Dextrose/Sod Cl (Potassium Chl 20 Meq In D5-1/2ns) 1,000 mls @ 100 mls/hr IV .Q10H [facility] Last Admin: 03/29/17 04:45 Dose: Not Given Metronidazole (Flagyl) 500 mg in 100 mls @ 100 mls/hr IVPB Q8 [facility] Last Admin: 03/29/17 14:12 Dose: 100 mls/hr Aztreonam 2 gm/ Sodium (Chloride) 100 mls @ 200 mls/hr IVPB Q8H [facility] Last Admin: 03/29/17 17:54 Dose: 200 mls/hr Vancomycin/Sodium Chloride (Vancocin) 1 gm in 200 mls @ 166.6 mls/hr IVPB Q12H [facility] Stop: 04/02/17 22:01 Last Admin: 03/29/17 12:35 Dose: 166.6 mls/hr Ketorolac Tromethamine (Toradol) 30 mg IVP Q6 PRN PRN Reason: pain Stop: 04/02/17 18:46 Last Admin: 03/29/17 19:35 Dose: 30 mg Pantoprazole Sodium (Protonix Inj) 40 mg IVP DAILY [facility] Last Admin: 03/29/17 10:28 Dose: 40 mg Pneumococcal Polyvalent Vaccine (Pneumovax 23 Vaccine) 0.5 ml IM .ONCE ONE Stop: 03/31/17 10:01 Saccharomyces Boulardii (Florastor) 250 mg PO BID [facility] Last Admin: 03/29/17 17:54 Dose: 250 mg - Constitutional Appears: Well, Non-toxic, No Acute Distress - Head Exam Head Exam: ATRAUMATIC, NORMAL INSPECTION, NORMOCEPHALIC - Eye Exam Eye Exam: EOMI - ENT Exam ENT Exam: Mucous Membranes Moist - Respiratory Exam Respiratory Exam: Clear to Ausculation Bilateral, NORMAL BREATHING PATTERN - Cardiovascular Exam Cardiovascular Exam: REGULAR RHYTHM - GI/Abdominal Exam GI & Abdominal Exam: Soft, Tenderness, Normal Bowel Sounds. absent: Distended, Firm - Neurological Exam Neurological Exam: Alert, Awake, Oriented x3 - Psychiatric Exam Psychiatric exam: Normal Affect, Normal Mood - Skin Skin Exam: Dry, Intact, Normal Color, Warm Assessment and Plan - Assessment and Plan (Free Text) Assessment: Pelvic Abscess to be managed by Dr. Magdaleno, surgery Dr. Hewitt, ID, on the case continue IV antibiotics as per Dr. Hewitt- Aztreonam, flagyl, vancomycin Hydronephrosis pt s/p right ureteral stent with Dr. Nguyễn CT abd/pelvis: right hydronephrosis to be managed as per Dr. Nguyễn Prophylactic measure lovenox 30mg SC Q12 protonix 40mg daily Patient has no chronic medical issues that need to be monitored by medicine team. Will sign off
[2017-03-29 22:50] LABS: BASO # 0.1 K/uL (0.0-0.2); BASO % 0.8 % (0.0-2.0); EOS # 0.1 K/uL (0.0-0.7); EOS % 0.9 % (0.0-4.0); LYMPH # 1.3 K/uL (1.0-4.3); LYMPH % 13.4 % (20.0-40.0); MEAN CELL VOLUME 84.9 fL (81.0-99.0); MEAN CORPUSCULAR HEMOGLOBIN 28.3 pg (27.0-31.0); MEAN CORPUSCULAR HGB CONC 33.3 g/dL (33.0-37.0); MEAN PLATELET VOLUME 8.3 fL (7.2-11.7); MONO # 0.7 K/uL (0.0-0.8); RED CELL DISTRIBUTION WIDTH 12.6 % (11.5-14.5); WHITE BLOOD COUNT 9.6 K/uL (4.8-10.8)
[2017-03-29 23:04] LABS: CHLORIDE 102 mmol/L (98-107)
[2017-03-29 23:05] LABS: POTASSIUM 3.7 mmol/L (3.6-5.2); SODIUM 136 mmol/L (132-148)
[2017-03-29 23:07] LABS: ALB/GLOB RATIO 0.8 (1.0-2.1); ALKALINE PHOSPHATASE 89 U/L (38-126); AST/SGOT 34 U/L (14-36); BILIRUBIN,TOTAL 0.5 mg/dL (0.2-1.3); BLOOD UREA NITROGEN 8 mg/dL (7-17); CARBON DIOXIDE 24 mmol/L (22-30); GFR AFRICAN-AMERICAN > 60; TOTAL PROTEIN 6.7 g/dL (6.3-8.3)
[2017-03-29 23:08] LABS: ALT/SGPT 62 U/L (9-52); CALCIUM 8.3 mg/dl (8.6-10.4); GLUCOSE,RANDOM 102 mg/dL (65-105)
[2017-03-30] MEDS: Aztreonam 2 GM in Sodium Chloride 0.9% 100 ML IVPB SCH ×3 (00:01→16:47)
[2017-03-30] MEDS: Potassium Ch 20mEq in D5-1/2NS 1,000 ML IV SCH ×4 (00:02→21:11)
[2017-03-30] MEDS: metroNIDAZOLE IV 500 mg/100 ml 500 MG/100 ML BAG IVPB SCH ×4 (05:14→22:33)
[2017-03-30] MEDS: Enoxaparin 30 mg Syringe SC SCH ×3 (09:12→22:31)
[2017-03-30] MEDS: Saccharomyces Boulardi 250 mg Cap PO SCH ×2 (09:12→18:41)
[2017-03-30] MEDS: Vancomycin 1 gm/NS 200 ml 1 GM/200 ML BAG IVPB SCH (11:02)
--- NOTE | 2017-03-30 13:02 | RAD ---
HISTORY: verify right PICC COMPARISON: Chest x-ray performed 03/19/17 TECHNIQUE: Chest, one view. FINDINGS: Right-sided PICC extends to the cavoatrial junction. LUNGS: Left basilar atelectasis/infiltrate. Please note that chest x-ray has limited sensitivity for the detection of pulmonary masses. PLEURA: No significant pleural effusion identified. No definite pneumothorax . CARDIOVASCULAR: The cardiomediastinal silhouette appears within normal limits of size. OSSEOUS STRUCTURES: No acute osseous abnormality identified. VISUALIZED UPPER ABDOMEN: Unremarkable. OTHER FINDINGS: None. IMPRESSION: Right-sided PICC extends to the cavoatrial junction. Left basilar atelectasis/ infiltrate.
--- NOTE | 2017-03-30 15:57 | CP.PCM.PN ---
Subjective - Date & Time of Evaluation Date of Evaluation: 03/30/17 Time of Evaluation: 07:50 - Subjective Subjective: General Surgery Pt S&E, NAEO. Tmax 100.0 Decreasing pain. Ambulating, tolerating diet. Objective - Vital Signs/Intake and Output Vital Signs (last 24 hours): Temp Pulse Resp BP Pulse Ox 98.9 F 90 20 103/68 99 03/30/17 07:36 03/30/17 07:36 03/30/17 07:36 03/30/17 07:36 03/30/17 07:36 Intake and Output: 03/30/17 03/30/17 06:59 18:59 Intake Total 950 Balance 950 - Medications Medications: Current Medications Docusate Sodium (Colace) 100 mg PO BID [facility] Last Admin: 03/30/17 09:12 Dose: 100 mg Enoxaparin Sodium (Lovenox) 30 mg SC 1000,2200 [facility] Last Admin: 03/30/17 09:12 Dose: 30 mg Potassium Chloride/Dextrose/Sod Cl (Potassium Chl 20 Meq In D5-1/2ns) 1,000 mls @ 100 mls/hr IV .Q10H [facility] Last Admin: 03/30/17 10:47 Dose: Not Given Metronidazole (Flagyl) 500 mg in 100 mls @ 100 mls/hr IVPB Q8 [facility] Last Admin: 03/30/17 13:17 Dose: 100 mls/hr Aztreonam 2 gm/ Sodium (Chloride) 100 mls @ 200 mls/hr IVPB Q8H [facility] Last Admin: 03/30/17 08:21 Dose: 200 mls/hr Vancomycin/Sodium Chloride (Vancocin) 1 gm in 200 mls @ 166.6 mls/hr IVPB Q12H [facility] Stop: 04/02/17 22:01 Last Admin: 03/30/17 11:02 Dose: 166.6 mls/hr Ketorolac Tromethamine (Toradol) 30 mg IVP Q6 PRN PRN Reason: pain Stop: 04/02/17 18:46 Last Admin: 03/30/17 12:07 Dose: 30 mg Pantoprazole Sodium (Protonix Inj) 40 mg IVP DAILY [facility] Last Admin: 03/30/17 09:12 Dose: 40 mg Pneumococcal Polyvalent Vaccine (Pneumovax 23 Vaccine) 0.5 ml IM .ONCE ONE Stop: 03/31/17 10:01 Saccharomyces Boulardii (Florastor) 250 mg PO BID [facility] Last Admin: 03/30/17 09:12 Dose: 250 mg - Labs Labs: 03/29/17 22:47 03/29/17 22:47 - Constitutional Appears: Non-toxic, No Acute Distress - Head Exam Head Exam: ATRAUMATIC, NORMOCEPHALIC - Respiratory Exam Respiratory Exam: NORMAL BREATHING PATTERN. absent: Respiratory Distress - GI/Abdominal Exam GI & Abdominal Exam: Guarding (mild), Soft, Tenderness (mild in RLQ). absent: Distended, Firm, Rigid - Neurological Exam Neurological Exam: Alert, Awake - Skin Skin Exam: Dry, Warm Assessment and Plan - Assessment and Plan (Free Text) Assessment: 31F with intra abdominal abscess ~2 week s/p open appendectomy for perforated appendix Plan: ADAT Continue ABX per ID Monitor abdominal pain Will likely get repeat CT Sunday to re-evaluate D/W Dr. Lyons (Covering for Dr. Magdaleno) PGY4
--- NOTE | 2017-03-30 19:08 | CP.PCM.PN ---
Subjective - Date & Time of Evaluation Date of Evaluation: 03/30/17 Time of Evaluation: 08:00 - Subjective Subjective: 31F with intra abdominal abscess ~2 week s/p open appendectomy for perforated appendix Objective - Vital Signs/Intake and Output Vital Signs (last 24 hours): Temp Pulse Resp BP Pulse Ox 98.1 F 70 20 110/73 97 03/30/17 15:00 03/30/17 15:00 03/30/17 15:00 03/30/17 15:00 03/30/17 15:00 - Medications Medications: Current Medications Docusate Sodium (Colace) 100 mg PO BID [facility] Last Admin: 03/30/17 18:41 Dose: 100 mg Enoxaparin Sodium (Lovenox) 30 mg SC 1000,2200 [facility] Last Admin: 03/30/17 09:12 Dose: 30 mg Potassium Chloride/Dextrose/Sod Cl (Potassium Chl 20 Meq In D5-1/2ns) 1,000 mls @ 100 mls/hr IV .Q10H [facility] Last Admin: 03/30/17 18:42 Dose: 100 mls/hr Metronidazole (Flagyl) 500 mg in 100 mls @ 100 mls/hr IVPB Q8 [facility] Last Admin: 03/30/17 13:17 Dose: 100 mls/hr Aztreonam 2 gm/ Sodium (Chloride) 100 mls @ 200 mls/hr IVPB Q8H [facility] Last Admin: 03/30/17 16:47 Dose: 200 mls/hr Vancomycin/Sodium Chloride (Vancocin) 1 gm in 200 mls @ 166.6 mls/hr IVPB Q12H [facility] Stop: 04/02/17 22:01 Last Admin: 03/30/17 11:02 Dose: 166.6 mls/hr Ondansetron HCl (Zofran Inj) 4 mg IVP Q4H [facility] Last Admin: 03/30/17 17:25 Dose: Not Given Pantoprazole Sodium (Protonix Inj) 40 mg IVP DAILY [facility] Last Admin: 03/30/17 09:12 Dose: 40 mg Pneumococcal Polyvalent Vaccine (Pneumovax 23 Vaccine) 0.5 ml IM .ONCE ONE Stop: 03/31/17 10:01 Saccharomyces Boulardii (Florastor) 250 mg PO BID [facility] Last Admin: 03/30/17 18:41 Dose: 250 mg - Labs Labs: 03/29/17 22:47 03/29/17 22:47 - Constitutional Appears: Non-toxic, Chronically Ill - Head Exam Head Exam: NORMOCEPHALIC - Eye Exam Eye Exam: PERRL - ENT Exam ENT Exam: Mucous Membranes Dry - Neck Exam Neck Exam: absent: Lymphadenopathy - Respiratory Exam Respiratory Exam: Decreased Breath Sounds - Cardiovascular Exam Cardiovascular Exam: REGULAR RHYTHM - GI/Abdominal Exam GI & Abdominal Exam: Distended, Soft - Rectal Exam Rectal Exam: Deferred - Exam Exam: NORMAL INSPECTION - Extremities Exam Extremities Exam: absent: Pedal Edema - Back Exam Back Exam: absent: CVA tenderness (L), CVA tenderness (R) - Neurological Exam Neurological Exam: Alert, Awake, Oriented x3 - Psychiatric Exam Psychiatric exam: Normal Mood - Skin Skin Exam: Dry Assessment and Plan - Assessment and Plan (Free Text) Plan: 31F with intra abdominal abscess ~2 week s/p open appendectomy for perforated appendix cont IV antibiotics follow up CT sunday
[2017-03-31] MEDS: Aztreonam 2 GM in Sodium Chloride 0.9% 100 ML IVPB SCH ×3 (00:03→16:10)
[2017-03-31] MEDS: Vancomycin 1 gm/NS 200 ml 1 GM/200 ML BAG IVPB SCH (00:32)
[2017-03-31] MEDS: metroNIDAZOLE IV 500 mg/100 ml 500 MG/100 ML BAG IVPB SCH ×3 (05:18→22:15)
[2017-03-31] MEDS: Potassium Ch 20mEq in D5-1/2NS 1,000 ML IV SCH ×2 (06:27→16:19)
[2017-03-31 08:25] LABS: CHLORIDE 104 mmol/L (98-107); POTASSIUM 3.9 mmol/L (3.6-5.2); SODIUM 139 mmol/L (132-148)
[2017-03-31 08:28] LABS: BLOOD UREA NITROGEN 6 mg/dL (7-17); CARBON DIOXIDE 22 mmol/L (22-30); GFR AFRICAN-AMERICAN > 60
[2017-03-31 08:29] LABS: CALCIUM 8.5 mg/dl (8.6-10.4); GLUCOSE,RANDOM 93 mg/dL (65-105)
[2017-03-31 08:37] LABS: HEMATOCRIT 29.6 % (34.0-47.0); MEAN CELL VOLUME 84.3 fL (81.0-99.0); MEAN CORPUSCULAR HEMOGLOBIN 28.4 pg (27.0-31.0); MEAN CORPUSCULAR HGB CONC 33.7 g/dL (33.0-37.0); MEAN PLATELET VOLUME 8.6 fL (7.2-11.7); RED CELL DISTRIBUTION WIDTH 12.5 % (11.5-14.5); WHITE BLOOD COUNT 7.7 K/uL (4.8-10.8)
--- NOTE | 2017-03-31 09:34 | CP.PCM.PN ---
Subjective - Date & Time of Evaluation Date of Evaluation: 03/31/17 Time of Evaluation: 09:31 - Subjective Subjective: Patient denies nausea this morning, would like to try eating. Continues to complain of lower abdominal pain radiating towards lower R flank. Tmax 99.3 yesterday Objective - Vital Signs/Intake and Output Vital Signs (last 24 hours): Temp Pulse Resp BP Pulse Ox 99.2 F 86 20 120/75 98 03/31/17 07:51 03/31/17 07:51 03/31/17 07:51 03/31/17 07:51 03/31/17 07:51 Intake and Output: 03/31/17 03/31/17 06:59 18:59 Intake Total 1700 Balance 1700 - Medications Medications: Current Medications Acetaminophen (Tylenol 325mg Tab) 650 mg PO Q6 PRN PRN Reason: Headache Docusate Sodium (Colace) 100 mg PO BID [facility] Last Admin: 03/30/17 18:41 Dose: 100 mg Enoxaparin Sodium (Lovenox) 30 mg SC 1000,2200 [facility] Last Admin: 03/30/17 22:31 Dose: Not Given Potassium Chloride/Dextrose/Sod Cl (Potassium Chl 20 Meq In D5-1/2ns) 1,000 mls @ 100 mls/hr IV .Q10H [facility] Last Admin: 03/31/17 06:27 Dose: Not Given Metronidazole (Flagyl) 500 mg in 100 mls @ 100 mls/hr IVPB Q8 [facility] Last Admin: 03/31/17 05:18 Dose: 100 mls/hr Aztreonam 2 gm/ Sodium (Chloride) 100 mls @ 200 mls/hr IVPB Q8H [facility] Last Admin: 03/31/17 07:52 Dose: 200 mls/hr Vancomycin/Sodium Chloride (Vancocin) 1 gm in 200 mls @ 166.6 mls/hr IVPB RQD [facility] Stop: 04/06/17 08:01 Ketorolac Tromethamine (Toradol) 30 mg IVP Q6 PRN PRN Reason: Pain, moderate (4-7) Metoclopramide HCl (Reglan) 5 mg IVP TID [facility] Ondansetron HCl (Zofran Inj) 4 mg IVP Q4H [facility] Last Admin: 03/31/17 05:24 Dose: Not Given Pantoprazole Sodium (Protonix Inj) 40 mg IVP DAILY [facility] Last Admin: 03/30/17 09:12 Dose: 40 mg Pneumococcal Polyvalent Vaccine (Pneumovax 23 Vaccine) 0.5 ml IM .ONCE ONE Stop: 03/31/17 10:01 Saccharomyces Boulardii (Florastor) 250 mg PO BID [facility] Last Admin: 03/30/17 18:41 Dose: 250 mg - Labs Labs: 03/31/17 08:07 03/31/17 08:07 - Constitutional Appears: Well, Non-toxic - ENT Exam ENT Exam: Mucous Membranes Moist - Neck Exam Neck Exam: Full ROM. absent: Lymphadenopathy, Meningismus - Respiratory Exam Respiratory Exam: NORMAL BREATHING PATTERN - GI/Abdominal Exam GI & Abdominal Exam: Soft, Tenderness. absent: Distended Additional comments: Tenderness to suprapubic and RLQ areas, unable to appreciate definite mass. Would is clean, healing Assessment and Plan (1) Intra-abdominal abscess post-procedure Assessment & Plan: Unable to do IR drainage due to size, postition, On IV antibiotics; will re- evaluate for drainable collection in a few days. Will try po again today Status: Acute (2) Hydronephrosis of right kidney Assessment & Plan: Stent appears to be in good position on current CT scan. Patient is currently having her period, will repeat urine C&S when finished. Status: Acute
[2017-03-31] MEDS: Saccharomyces Boulardi 250 mg Cap PO SCH ×2 (09:47→17:32)
[2017-03-31] MEDS: Enoxaparin 30 mg Syringe SC SCH ×3 (09:47→22:16)
[2017-03-31] MEDS ORDERED: Pneumococcal 23-Valent Vaccine IM ONE (10:00)
[2017-03-31] MEDS ORDERED: Simethicone 80 mg Chewtab PO PRN (20:51)
[2017-04-01] MEDS: Aztreonam 2 GM in Sodium Chloride 0.9% 100 ML IVPB SCH ×4 (00:03→23:46)
[2017-04-01] MEDS: Vancomycin 1 gm/NS 200 ml 1 GM/200 ML BAG IVPB SCH (00:42)
[2017-04-01] MEDS: metroNIDAZOLE IV 500 mg/100 ml 500 MG/100 ML BAG IVPB SCH ×3 (05:11→21:17)
--- NOTE | 2017-04-01 08:04 | CP.PCM.PN ---
Subjective - Date & Time of Evaluation Date of Evaluation: 04/01/17 Time of Evaluation: 08:01 - Subjective Subjective: Feels better, notes some pain when she urinates. PICC line inserted yesterday. Tmax 99.3 yesterday. Passing flatus, had small BM, no diarrhea, tolerated liquid diet Objective - Vital Signs/Intake and Output Vital Signs (last 24 hours): Temp Pulse Resp BP Pulse Ox 98 F 81 20 114/74 99 03/31/17 23:00 03/31/17 23:00 03/31/17 23:00 03/31/17 23:00 03/31/17 23:00 Intake and Output: 04/01/17 04/01/17 06:59 18:59 Intake Total 1940 Balance 194 - Medications Medications: Current Medications Acetaminophen (Tylenol 325mg Tab) 650 mg PO Q6 PRN PRN Reason: Headache Docusate Sodium (Colace) 100 mg PO BID [facility] Last Admin: 03/31/17 17:32 Dose: 100 mg Enoxaparin Sodium (Lovenox) 30 mg SC 1000,2200 [facility] Last Admin: 03/31/17 22:16 Dose: Not Given Metronidazole (Flagyl) 500 mg in 100 mls @ 100 mls/hr IVPB Q8 [facility] Last Admin: 04/01/17 05:11 Dose: 100 mls/hr Aztreonam 2 gm/ Sodium (Chloride) 100 mls @ 200 mls/hr IVPB Q8H [facility] Last Admin: 04/01/17 00:03 Dose: 200 mls/hr Vancomycin/Sodium Chloride (Vancocin) 1 gm in 200 mls @ 133.333 mls/hr IVPB Q24H [facility] Stop: 04/06/17 00:01 Last Admin: 04/01/17 00:42 Dose: 133.333 mls/hr Ketorolac Tromethamine (Toradol) 30 mg IVP Q6 PRN PRN Reason: Pain, moderate (4-7) Last Admin: 03/31/17 16:10 Dose: 30 mg Metoclopramide HCl (Reglan) 5 mg IVP TIDCC [facility] Last Admin: 03/31/17 17:32 Dose: 5 mg Pantoprazole Sodium (Protonix Inj) 40 mg IVP DAILY [facility] Last Admin: 03/31/17 09:47 Dose: 40 mg Saccharomyces Boulardii (Florastor) 250 mg PO BID [facility] Last Admin: 03/31/17 17:32 Dose: 250 mg Simethicone (Mylicon Chew Tab) 80 mg PO TID PRN PRN Reason: GI distress - Labs Labs: 03/31/17 08:07 03/31/17 08:07 - Constitutional Appears: No Acute Distress - GI/Abdominal Exam GI & Abdominal Exam: Soft, Tenderness, Normal Bowel Sounds. absent: Distended Additional comments: REmains tender across lower abdomen Assessment and Plan (1) Intra-abdominal abscess post-procedure Assessment & Plan: Less pain, afebrile, tolerating diet. Continue IV antibiotics, repeat CT this week to evaluate for drainable collection Status: Acute (2) Hydronephrosis of right kidney Status: Acute
[2017-04-01] MEDS: Saccharomyces Boulardi 250 mg Cap PO SCH ×2 (09:37→17:44)
[2017-04-01] MEDS: Enoxaparin 30 mg Syringe SC SCH ×2 (09:38→21:20)
--- NOTE | 2017-04-01 14:25 | CP.PCM.PN ---
Subjective - Date & Time of Evaluation Date of Evaluation: 04/01/17 Time of Evaluation: 05:00 - Subjective Subjective: events noted PICC in place IV rx to continue Objective - Vital Signs/Intake and Output Vital Signs (last 24 hours): Temp Pulse Resp BP Pulse Ox 98.5 F 71 20 111/74 98 04/01/17 08:00 04/01/17 08:00 04/01/17 08:00 04/01/17 08:00 04/01/17 08:00 Intake and Output: 04/01/17 04/01/17 06:59 18:59 Intake Total 1940 Balance 1940 - Medications Medications: Current Medications Acetaminophen (Tylenol 325mg Tab) 650 mg PO Q6 PRN PRN Reason: Headache Docusate Sodium (Colace) 100 mg PO BID [facility] Last Admin: 04/01/17 09:38 Dose: 100 mg Enoxaparin Sodium (Lovenox) 30 mg SC 1000,2200 [facility] Last Admin: 04/01/17 09:38 Dose: 30 mg Metronidazole (Flagyl) 500 mg in 100 mls @ 100 mls/hr IVPB Q8 [facility] Last Admin: 04/01/17 13:48 Dose: 100 mls/hr Aztreonam 2 gm/ Sodium (Chloride) 100 mls @ 200 mls/hr IVPB Q8H [facility] Last Admin: 04/01/17 08:00 Dose: 200 mls/hr Vancomycin/Sodium Chloride (Vancocin) 1 gm in 200 mls @ 133.333 mls/hr IVPB Q24H [facility] Stop: 04/06/17 00:01 Last Admin: 04/01/17 00:42 Dose: 133.333 mls/hr Ketorolac Tromethamine (Toradol) 30 mg IVP Q6 PRN PRN Reason: Pain, moderate (4-7) Last Admin: 03/31/17 16:10 Dose: 30 mg Metoclopramide HCl (Reglan) 5 mg IVP TIDCC [facility] Last Admin: 04/01/17 12:00 Dose: 5 mg Pantoprazole Sodium (Protonix Inj) 40 mg IVP DAILY [facility] Last Admin: 04/01/17 10:00 Dose: 40 mg Saccharomyces Boulardii (Florastor) 250 mg PO BID [facility] Last Admin: 04/01/17 09:37 Dose: 250 mg Simethicone (Mylicon Chew Tab) 80 mg PO TID PRN PRN Reason: GI distress - Labs Labs: 03/31/17 08:07 03/31/17 08:07 - Constitutional Appears: Non-toxic, No Acute Distress - Head Exam Head Exam: NORMOCEPHALIC - Eye Exam Eye Exam: PERRL - ENT Exam ENT Exam: Mucous Membranes Dry - Neck Exam Neck Exam: absent: Lymphadenopathy - Respiratory Exam Respiratory Exam: Decreased Breath Sounds, Clear to Ausculation Bilateral - Cardiovascular Exam Cardiovascular Exam: REGULAR RHYTHM - GI/Abdominal Exam GI & Abdominal Exam: Distended, Soft, Tenderness - Rectal Exam Rectal Exam: Deferred - Exam Exam: NORMAL INSPECTION - Extremities Exam Extremities Exam: absent: Pedal Edema - Back Exam Back Exam: absent: CVA tenderness (L), CVA tenderness (R) - Neurological Exam Neurological Exam: Alert, Awake, Oriented x3 Assessment and Plan - Assessment and Plan (Free Text) Plan: post op phlegmon s/p appendectomy cont iv antibiotics
--- NOTE | 2017-04-01 17:26 | CP.PCM.CON ---
History of Present Illness - History of Present Illness History of Present Illness: Hospitalist Consult Note Patient was seen and examined at 2:40 PM 04/01/17 370 A 31 year old female who was admitted for treatment of Pelvic Abscess x 2 with Phlegmon S/P Open Appendectomy that took place on 03/14/17. Upon FULL ROS: Had small bowel movement that was normal this morning There has been decreased discomfort in the RLQ area Exam: General: AAOx3, NAD HEENT: NCA, EOMI, PERRLA, NO cervical/supraclavicular/submandibular lymphadenopathy, NO pharyngeal erythema/exudate, Mucous Membranes are moist, Nasal Turbinates are nonedematous/nonerythematous Cardio: NS1 and NS2, NO M/R/G Respiratory: CTA B/L NO R/R/W GI: BSx4, Soft, NT, ND, NO HSM, NO guarding/rebound tenderness Ext: NO edema, Pulses are strong and equal, Capillary Refill is 2 seconds Neuro: CN II through XII are grossly intact Assessments: 1). Pelvic Abscess x [address] per [address] Abdomen/Pelvis on 03/28/17 Blood Culture 03/28/17 is negative to date ID Dr. Hewitt is following Surgery Dr. Lyons is covering for Dr. Magdaleno She was seen by IR Dr. Tres Nobles on 03/29/17 for possible drainage however it was deemed at that time no large enough for drainage Repeat CT Abdomen/Pelvis with PO and IV contrast morning of 04/02/17 to check improvement vs enlargement Aztreonam 2 gm IV Q8H Metronidazole 500 mg IV Q8H Vancomycin 1 gm IV Q12H 2). Hx Right Hydronephrosis Likely secondary to the Pelvic Abscess/Phlegmon S/P retrograde double j-stent placed in right ureter by Urologist Dr. Dakotah Nguyễn on 03/20/17. F/U with Dr. Dakotah Nguyễn 3). Questionable Left Basilar Infiltrate As per Chest X Ray 03/30/17 However pulmonary portion of the CT Abdomen/Pelvis 03/28/17 showed atelectasis there this is likely not pneumonia 4). Diarrhea Stool Culture 03/29/17 is negative Normal small bowel movement today 5). Dysuria Urine Culture 03/28/17 showed multiple species therefore repeat has been ordered 6). Prophylaxis Colace 100 mg PO 2x/day Lovenox 30 mg SC 1x/day Toradol 30 mg IV Q6H PRN Severe Pain Zofran 4 mg IV Q4H PRN N/V Protonix 40 mg IV 1x/day Florastor 250 mg PO 2x/day Please note that patient stated that she would like to transfer her care to Surgery Dr. Lyons instead of Dr. Magdaleno. Nurse was made aware and Medicine Team will speak with Focusing Machine Operator tomorrow 04/02/17. Jose Mccabe D.O. Past Patient History - Infectious Disease Hx of Infectious Diseases: None - Past Medical History & Family History Past Medical History?: Yes - Past Social History Smoking Status: Never Smoked - CARDIAC Hx Atrial Fibrillation: No Hx Cardia Arrhythmia: No Hx Congestive Heart Failure: No Hx Hypercholesterolemia: No Hx Hypertension: No Hx Mitral Valve Prolapse: No Hx Pacemaker: No Hx Peripheral Edema: No - PULMONARY Hx Asthma: No Hx Bronchitis: No Hx Chronic Obstructive Pulmonary Disease (COPD): No Hx Emphysema: No Hx Pneumonia: No Hx Pulmonary Embolism: No Hx Sleep Apnea: No - NEUROLOGICAL Hx Alzheimer's Disease: No Hx Dementia: No Hx Migraine: No Hx Multiple Sclerosis: No Hx Parkinson's Disease: No Hx Seizures: No Hx Transient Ischemic Attacks (TIA): No - HEENT Hx HEENT Problems: No Hx Blind: No Hx Cataracts: No Hx Deafness: No Hx Difficulty Chewing: No Hx Epistaxis: No Hx Glaucoma: No Hx Macular Degeneration: No - RENAL Hx Chronic Kidney Disease: No Hx Kidney Stones: No - ENDOCRINE/METABOLIC Hx Hyperthyroidism: No Hx Hypothyroidism: No - HEMATOLOGICAL/ONCOLOGICAL Hx Anemia: No Hx Human Immunodeficiency Virus (HIV): No Hx Sickle Cell Disease: No - INTEGUMENTARY Hx Dermatological Problems: No Hx Basil Cell: No Hx Olson: No Hx Cellulitis: No Hx Eczema: No Hx Melanoma: No Hx Psoriasis: No Hx Squamous Cell: No - MUSCULOSKELETAL/RHEUMATOLOGICAL Hx Arthritis: No Hx Fractures: No Hx Osteoporosis: No Hx Rheumatoid Arthritis: No - GASTROINTESTINAL Hx Crohn's Disease: No Hx Diverticulitis: No Hx Gall Bladder Disease: No Hx Gastritis: No Hx Pancreatitis: No - GENITOURINARY/GYNECOLOGICAL Hx Sexually Transmitted Disorders: No - PSYCHIATRIC Hx Substance Use: No - SURGICAL HISTORY Hx Appendectomy: Yes - ANESTHESIA Hx Anesthesia: Yes Hx Anesthesia Reactions: No Hx Malignant Hyperthermia: No Meds Allergies/Adverse Reactions: Allergies Allergy/AdvReac Type Severity Reaction Status Date / Time Penicillins Allergy RASH Verified 03/28/17 11:26 - Medications Medications: Current Medications Acetaminophen (Tylenol 325mg Tab) 650 mg PO Q6 PRN PRN Reason: Headache Docusate Sodium (Colace) 100 mg PO BID [facility] Last Admin: 04/01/17 09:38 Dose: 100 mg Enoxaparin Sodium (Lovenox) 30 mg SC 1000,2200 [facility] Last Admin: 04/01/17 09:38 Dose: 30 mg Metronidazole (Flagyl) 500 mg in 100 mls @ 100 mls/hr IVPB Q8 [facility] Last Admin: 04/01/17 13:48 Dose: 100 mls/hr Aztreonam 2 gm/ Sodium (Chloride) 100 mls @ 200 mls/hr IVPB Q8H [facility] Last Admin: 04/01/17 08:00 Dose: 200 mls/hr Vancomycin/Sodium Chloride (Vancocin) 1 gm in 200 mls @ 133.333 mls/hr IVPB Q24H [facility] Stop: 04/06/17 00:01 Last Admin: 04/01/17 00:42 Dose: 133.333 mls/hr Ketorolac Tromethamine (Toradol) 30 mg IVP Q6 PRN PRN Reason: Pain, moderate (4-7) Last Admin: 03/31/17 16:10 Dose: 30 mg Metoclopramide HCl (Reglan) 5 mg IVP TIDCC [facility] Last Admin: 04/01/17 12:00 Dose: 5 mg Pantoprazole Sodium (Protonix Inj) 40 mg IVP DAILY [facility] Last Admin: 04/01/17 10:00 Dose: 40 mg Saccharomyces Boulardii (Florastor) 250 mg PO BID [facility] Last Admin: 04/01/17 09:37 Dose: 250 mg Simethicone (Mylicon Chew Tab) 80 mg PO TID PRN PRN Reason: GI distress Results - Vital Signs Recent Vital Signs: Last Vital Signs Temp 98.5 F 04/01/17 08:00 Pulse 71 04/01/17 08:00 Resp 20 04/01/17 08:00 BP 111/74 04/01/17 08:00 Pulse Ox 98 04/01/17 08:00 - Labs Result Diagrams: 03/31/17 08:07 08/19/17 08:07
[2017-04-02] MEDS: Vancomycin 1 gm/NS 200 ml 1 GM/200 ML BAG IVPB SCH (00:54)
[2017-04-02] MEDS: metroNIDAZOLE IV 500 mg/100 ml 500 MG/100 ML BAG IVPB SCH ×3 (05:39→21:29)
[2017-04-02 08:18] LABS: BASO % 0.4 % (0.0-2.0); EOS # 0.2 K/uL (0.0-0.7); EOS % 2.9 % (0.0-4.0); HEMATOCRIT 30.1 % (34.0-47.0); LYMPH # 1.6 K/uL (1.0-4.3); MEAN CELL VOLUME 84.4 fL (81.0-99.0); MEAN CORPUSCULAR HEMOGLOBIN 27.6 pg (27.0-31.0); MEAN CORPUSCULAR HGB CONC 32.7 g/dL (33.0-37.0); MEAN PLATELET VOLUME 8.8 fL (7.2-11.7); MONO # 0.6 K/uL (0.0-0.8); NRBC % 0.2 % (0.0-2.0); RED CELL DISTRIBUTION WIDTH 12.5 % (11.5-14.5)
[2017-04-02] MEDS: Aztreonam 2 GM in Sodium Chloride 0.9% 100 ML IVPB SCH ×2 (08:45→17:22)
[2017-04-02] MEDS ORDERED: Iodixanol 320 MG/ML 100 ML BOTTLE IV ONE (08:52)
[2017-04-02 08:57] LABS: CHLORIDE 102 mmol/L (98-107)
[2017-04-02 08:58] LABS: POTASSIUM 3.9 mmol/L (3.6-5.2); SODIUM 138 mmol/L (132-148)
[2017-04-02 09:00] LABS: ALB/GLOB RATIO 0.8 (1.0-2.1); AST/SGOT 17 U/L (14-36); BILIRUBIN,TOTAL 0.4 mg/dL (0.2-1.3); CARBON DIOXIDE 26 mmol/L (22-30); GFR AFRICAN-AMERICAN > 60; TOTAL PROTEIN 6.8 g/dL (6.3-8.3)
[2017-04-02 09:01] LABS: ALKALINE PHOSPHATASE 65 U/L (38-126); ALT/SGPT 35 U/L (9-52); BLOOD UREA NITROGEN 7 mg/dL (7-17); CALCIUM 8.5 mg/dl (8.6-10.4); GLUCOSE,RANDOM 93 mg/dL (65-105)
--- NOTE | 2017-04-02 09:19 | CP.PCM.PN ---
Subjective - Date & Time of Evaluation Date of Evaluation: 04/02/17 Time of Evaluation: 08:20 - Subjective Subjective: General Surgery Note Patient was seen and examined at bedside. Patient was resting comfortably in bed. Patient denies nausea, vomiting, abdominal pain, fever, chills but still admits to very mild RLQ abdominal tenderness. Patient is tolerating diet and states that she is having bowel movement. Objective - Vital Signs/Intake and Output Vital Signs (last 24 hours): Temp Pulse Resp BP Pulse Ox 98.2 F 76 20 115/73 98 04/01/17 23:24 04/01/17 23:24 04/01/17 23:24 04/01/17 23:24 04/01/17 23:24 Intake and Output: 04/02/17 04/02/17 06:59 18:59 Intake Total 1000 1040 Balance 1000 1040 - Medications Medications: Current Medications Acetaminophen (Tylenol 325mg Tab) 650 mg PO Q6 PRN PRN Reason: Headache Docusate Sodium (Colace) 100 mg PO BID [facility] Last Admin: 04/01/17 17:44 Dose: 100 mg Enoxaparin Sodium (Lovenox) 30 mg SC 1000,2200 [facility] Last Admin: 04/01/17 21:20 Dose: 30 mg Metronidazole (Flagyl) 500 mg in 100 mls @ 100 mls/hr IVPB Q8 [facility] Last Admin: 04/02/17 05:39 Dose: 100 mls/hr Aztreonam 2 gm/ Sodium (Chloride) 100 mls @ 200 mls/hr IVPB Q8H [facility] Last Admin: 04/02/17 08:45 Dose: 200 mls/hr Vancomycin/Sodium Chloride (Vancocin) 1 gm in 200 mls @ 133.333 mls/hr IVPB Q24H [facility] Stop: 04/06/17 00:01 Last Admin: 04/02/17 00:54 Dose: 133.333 mls/hr Ketorolac Tromethamine (Toradol) 30 mg IVP Q6 PRN PRN Reason: Pain, moderate (4-7) Last Admin: 03/31/17 16:10 Dose: 30 mg Metoclopramide HCl (Reglan) 5 mg IVP TIDCC [facility] Last Admin: 04/02/17 08:44 Dose: 5 mg Pantoprazole Sodium (Protonix Inj) 40 mg IVP DAILY [facility] Last Admin: 04/01/17 10:00 Dose: 40 mg Saccharomyces Boulardii (Florastor) 250 mg PO BID [facility] Last Admin: 04/01/17 17:44 Dose: 250 mg Simethicone (Mylicon Chew Tab) 80 mg PO TID PRN PRN Reason: GI distress - Labs Labs: 04/02/17 08:04 04/02/17 08:04 - Constitutional Appears: Well, No Acute Distress - Head Exam Head Exam: ATRAUMATIC, NORMAL INSPECTION - Eye Exam Eye Exam: EOMI, Normal appearance - ENT Exam ENT Exam: Mucous Membranes Moist, Normal Exam - Respiratory Exam Respiratory Exam: Clear to Ausculation Bilateral, NORMAL BREATHING PATTERN - Cardiovascular Exam Cardiovascular Exam: REGULAR RHYTHM, +S1, +S2 - GI/Abdominal Exam GI & Abdominal Exam: Soft, Tenderness, Normal Bowel Sounds Additional comments: Mild RLQ tenderness - Extremities Exam Extremities Exam: Normal Capillary Refill, Normal Inspection. absent: Tenderness - Neurological Exam Neurological Exam: Alert, Awake, Oriented x3 - Psychiatric Exam Psychiatric exam: Normal Affect, Normal Mood - Skin Skin Exam: Dry, Normal Color, Warm Assessment and Plan - Assessment and Plan (Free Text) Assessment: Patient is a 31Y F intra abdominal abscess ~2 week s/p open appendectomy for perforated appendix Plan: -Continue antibiotics regimen as per ID - Continue to monitor abdominal pain - F/u repeat CT to re-evaluate intraabdominal-abscess Discussed with Dr. Lyons (Covering for Dr. Magdaleno) Jenae Kearney, PGY -1
[2017-04-02] MEDS: Saccharomyces Boulardi 250 mg Cap PO SCH ×2 (10:37→17:23)
[2017-04-02] MEDS: Enoxaparin 30 mg Syringe SC SCH ×3 (10:37→21:33)
--- NOTE | 2017-04-02 11:10 | CT ---
PROCEDURE: Noncontrast CT scan obtained for purposes of abscess drainage. HISTORY: PERFORATED APPENDIX with small pelvic abscess. COMPARISON: TECHNIQUE: 5 millimeter contiguous transaxial sections obtained through the pelvis for purposes of abscess drainage. Radiation: 769.52 Mgy-cm FINDINGS: Again seen phlegmonous changes in the right lower quadrant. Small abscess previous identified in the anterior abdomen is below the transverse colon and not amenable to percutaneous drainage. Smaller collection near the right adnexa is also not accessible percutaneously. IMPRESSION: Small abdominal collection consistent with abscess not amenable to percutaneous drainage. Abscess drainage was not performed.
[2017-04-02] MEDS ORDERED: Iohexol 240 (50 ml) PO ONE (11:30)
--- NOTE | 2017-04-02 16:51 | PCM.URO ---
Urology Progress Note - Objective Lab Results Last 24 Hours: Laboratory Results - last 24 hr 04/02/17 04/02/17 04/02/17 08:04 08:04 08:04 WBC 6.0 RBC 3.57 L Hgb 9.8 L Hct 30.1 L MCV 84.4 MCH 27.6 MCHC 32.7 L RDW 12.5 Plt Count 343 MPV 8.8 Neut % (Auto) 60.7 Lymph % (Auto) 26.0 [place] % (Auto) 10.0 Eos % (Auto) 2.9 Baso % (Auto) 0.4 Neut # 3.6 Lymph # 1.6 [place] # 0.6 Eos # 0.2 Baso # 0.0 Sodium 138 Potassium 3.9 Chloride 102 Carbon Dioxide 26 Anion Gap 14 BUN 7 Creatinine 0.6 L Est GFR ( Amer) > 60 Est GFR (Non-Af Amer) > 60 Random Glucose 93 Calcium 8.5 L Total Bilirubin 0.4 AST 17 ALT 35 Alkaline Phosphatase 65 Total Protein 6.8 Albumin 3.0 L Globulin 3.8 Albumin/Globulin Ratio 0.8 L Urine HCG, Qual Vancomycin Trough 14.9 H 04/02/17 15:45 WBC RBC Hgb Hct MCV MCH MCHC RDW Plt Count MPV Neut % (Auto) Lymph % (Auto) [place] % (Auto) Eos % (Auto) Baso % (Auto) Neut # Lymph # [place] # Eos # Baso # Sodium Potassium Chloride Carbon Dioxide Anion Gap BUN Creatinine Est GFR ( Amer) Est GFR (Non-Af Amer) Random Glucose Calcium Total Bilirubin AST ALT Alkaline Phosphatase Total Protein Albumin Globulin Albumin/Globulin Ratio Urine HCG, Qual Negative Vancomycin Trough Intake & Output: Intake & Output 04/01/17 04/02/17 04/02/17 18:59 06:59 18:59 Intake Total 1000 2640 Balance 1000 2640 Intake: Intake, IV Amount 800 900 Right Antecubital 800 900 Oral 200 1740 Other: # Voids Urine, Voided 3 1 # Bowel Movements 1 2 Vital Signs: Vital Signs - 24 hr 04/01/17 04/01/17 04/02/17 17:52 23:24 09:31 Temperature 99.6 F 98.2 F 98 F Pulse Rate 103 H 76 73 Respiratory 20 20 20 Rate Blood Pressure 117/80 115/73 124/80 O2 Sat by Pulse 100 98 99 Oximetry
--- NOTE | 2017-04-02 17:39 | CP.PCM.PN ---
<Servando Billings - Last Filed: 04/02/17 17:36> Subjective - Date & Time of Evaluation Date of Evaluation: 04/02/17 Time of Evaluation: 17:36 - Subjective Subjective: PGY1 Note for Dr. Mccabe HPI: Patient seen and examined at bedside. Patient stated she wanted her care transferred to Dr. Lyons if she is willing to accept. We repeated the abdominal CT scan to see weather the size of the intrabdominal abscess he diminished in size. Will follow up official read. Patient has no chronic medical problems to manage. Will sign off. Please reconsult if needed. Thank you. Objective - Vital Signs/Intake and Output Vital Signs (last 24 hours): Temp Pulse Resp BP Pulse Ox 98 F 73 20 124/80 99 04/02/17 09:31 04/02/17 09:31 04/02/17 09:31 04/02/17 09:31 04/02/17 09:31 Intake and Output: 04/02/17 04/02/17 06:59 18:59 Intake Total 1000 2640 Balance 1000 2640 - Medications Medications: Current Medications Acetaminophen (Tylenol 325mg Tab) 650 mg PO Q6 PRN PRN Reason: Headache Docusate Sodium (Colace) 100 mg PO BID [facility] Last Admin: 04/02/17 17:23 Dose: Not Given Enoxaparin Sodium (Lovenox) 30 mg SC 1000,2200 [facility] Last Admin: 04/02/17 10:37 Dose: 30 mg Metronidazole (Flagyl) 500 mg in 100 mls @ 100 mls/hr IVPB Q8 [facility] Last Admin: 04/02/17 14:05 Dose: 100 mls/hr Aztreonam 2 gm/ Sodium (Chloride) 100 mls @ 200 mls/hr IVPB Q8H [facility] Last Admin: 04/02/17 17:22 Dose: 200 mls/hr Vancomycin/Sodium Chloride (Vancocin) 1 gm in 200 mls @ 133.333 mls/hr IVPB Q24H [facility] Stop: 04/06/17 00:01 Last Admin: 04/02/17 00:54 Dose: 133.333 mls/hr Ketorolac Tromethamine (Toradol) 30 mg IVP Q6 PRN PRN Reason: Pain, moderate (4-7) Last Admin: 03/31/17 16:10 Dose: 30 mg Metoclopramide HCl (Reglan) 5 mg IVP TIDCC [facility] Last Admin: 04/02/17 17:22 Dose: 5 mg Pantoprazole Sodium (Protonix Inj) 40 mg IVP DAILY [facility] Last Admin: 04/02/17 10:36 Dose: 40 mg Saccharomyces Boulardii (Florastor) 250 mg PO BID [facility] Last Admin: 04/02/17 17:23 Dose: 250 mg Simethicone (Mylicon Chew Tab) 80 mg PO TID PRN PRN Reason: GI distress - Labs Labs: 04/02/17 08:04 04/02/17 08:04 <Jose Mccabe - Last Filed: 04/02/17 19:28> Objective - Vital Signs/Intake and Output Vital Signs (last 24 hours): Temp Pulse Resp BP Pulse Ox 98 F 73 20 124/80 99 04/02/17 09:31 04/02/17 09:31 04/02/17 09:31 04/02/17 09:31 04/02/17 09:31 Intake and Output: 04/02/17 04/03/17 18:59 06:59 Intake Total 2640 Balance 2640 - Medications Medications: Current Medications Acetaminophen (Tylenol 325mg Tab) 650 mg PO Q6 PRN PRN Reason: Headache Docusate Sodium (Colace) 100 mg PO BID [facility] Last Admin: 04/02/17 17:23 Dose: Not Given Enoxaparin Sodium (Lovenox) 30 mg SC 1000,2200 [facility] Last Admin: 04/02/17 10:37 Dose: 30 mg Metronidazole (Flagyl) 500 mg in 100 mls @ 100 mls/hr IVPB Q8 [facility] Last Admin: 04/02/17 14:05 Dose: 100 mls/hr Aztreonam 2 gm/ Sodium (Chloride) 100 mls @ 200 mls/hr IVPB Q8H [facility] Last Admin: 04/02/17 17:22 Dose: 200 mls/hr Vancomycin/Sodium Chloride (Vancocin) 1 gm in 200 mls @ 133.333 mls/hr IVPB Q24H [facility] Stop: 04/06/17 00:01 Last Admin: 04/02/17 00:54 Dose: 133.333 mls/hr Ketorolac Tromethamine (Toradol) 30 mg IVP Q6 PRN PRN Reason: Pain, moderate (4-7) Last Admin: 03/31/17 16:10 Dose: 30 mg Metoclopramide HCl (Reglan) 5 mg IVP TIDCC [facility] Last Admin: 04/02/17 17:22 Dose: 5 mg Pantoprazole Sodium (Protonix Inj) 40 mg IVP DAILY [facility] Last Admin: 04/02/17 10:36 Dose: 40 mg Saccharomyces Boulardii (Florastor) 250 mg PO BID [facility] Last Admin: 04/02/17 17:23 Dose: 250 mg Simethicone (Mylicon Chew Tab) 80 mg PO TID PRN PRN Reason: GI distress - Labs Labs: 04/02/17 08:04 04/02/17 08:04 Attending/Attestation - Attestation I have personally seen and examined this patient.: Yes I have fully participated in the care of the patient.: Yes I have reviewed all pertinent clinical information, including history, physical exam and plan: Yes Notes (Text): 04/02/17 19:[address] I spoke with Surgery Dr. Lyons and she will continue to follow patient and follow up with repeat CT Abdomen/Pelvis to determine if the pelvic abscesses have improved or not. Medicine Team will sign off as there are no chronic medical issues to manage, but please reconsult us if there are any issues. Jose Mccabe D.O.
--- NOTE | 2017-04-02 17:42 | CT ---
PROCEDURE: CT scan of the abdomen and pelvis dated 04/02/2017 HISTORY: Pelvic abscess with phlegmon COMPARISON: None. Comparison made with prior study 03/28/2017 TECHNIQUE: Contiguous axial images of the abdomen and pelvis performed in standard fashion following the oral and intravenous injection of approximately 100 cc Visipaque 320 contrast material. Additional 2 dimensional sagittal and coronal reformats provided. Radiation dose: Total exam DLP = 510.99 mGy-cm. This CT exam was performed using one or more of the following dose reduction techniques: Automated exposure control, adjustment of the mA and/or kV according to patient size, and/or use of iterative reconstruction technique. FINDINGS: LOWER THORAX: Minimal passive atelectasis left posterior sulcus. Lung owen are otherwise clear. No infiltrate effusion or basilar pneumothorax. LIVER: Unremarkable. No gross lesion or ductal dilatation. Liver is enlarged measuring 19.2 cm in CC dimension. Mild diffuse fatty hepatic infiltration. No obvious hepatic mass collection or calcification. Portal and splenic veins are opacified. GALLBLADDER AND BILE DUCTS: Gallbladder is physiologically distended. No evidence of intraluminal gallbladder calculi. PANCREAS: The pancreas appears grossly unremarkable without mass collection or calcification. SPLEEN: Spleen is mildly enlarged measuring approximately 13.3 cm in AP dimension. No splenic mass collection or calcification. . ADRENALS: There are no adrenal lesions. KIDNEYS AND URETERS: Kidneys that demonstrate symmetric nephrograms. Situ right-sided ureteral stent with the distal pigtail component located in the urinary bladder lumen. . The right ureter exhibits very mild dilatation. Questionable surrounding induration. BLADDER: Urinary bladder is incompletely distended which part accounts for thick-walled appearance. Possibility of a cystitis not excluded. There are inflammatory changes seen surrounding the superior and anterior margin of the urinary bladder. REPRODUCTIVE: Uterus unremarkable. APPENDIX: Appendix is not seen consistent with this patient's history of appendectomy with (non radiopaque sutures or clips adjacent to the medial aspect of the cecum. . BOWEL: Evaluation of the bowel is somewhat limited due to incomplete opacification. Stomach is distended with a liquid and air. Visualized loops of small bowel exhibit normal contour and caliber. No evidence acute mechanical small bowel obstruction. There are apparent wall thickening and inflammation changes of redundant sigmoid colon secondary to the at aforementioned on inflammatory process. No definitive evidence of a obstruction wall at this time with oral contrast material seen in the rectum. PERITONEUM: Re- demonstrated previously noted abscess collection within the right parasagittal pelvis as diminished in size measuring approximately 20.5 x 12.5 mm. An additional of small collection in the right aspect of the cul de sac region has also diminished in size measuring approximately 2.5 x 2.3 cm. A 3rd collection which was located near the right uterine fundus and right post lateral margin of the urinary bladder has diminished in size. There are a diffuse infiltration at/inflammatory changes within the mesentery of the pelvis with what appears represent a small amount of residual free fluid in the cul de sac. No free intraperitoneal air. Note that the LYMPH NODES: Unremarkable. No enlarged lymph nodes. VASCULATURE: Unremarkable. No aortic aneurysm. BONES: No fracture or destructive lesion. OTHER FINDINGS: None. IMPRESSION: . Interval improvement previously noted pelvic abscess collections however persistent infiltration and/or inflammatory changes within the mesentery of the pelvis again noted. Appears be secondary involvement of the adjacent wall of the sigmoid colon which appears somewhat thickened however no evidence of obstruction with oral contrast material is seen extending into the rectum. Again noted is a its changes of appendectomy. In situ right ureteral stent. Mild hepatomegaly with mild fatty hepatic infiltration. Mild splenomegaly.
[2017-04-03] MEDS: Vancomycin 1 gm/NS 200 ml 1 GM/200 ML BAG IVPB SCH (00:30)
[2017-04-03] MEDS: Aztreonam 2 GM in Sodium Chloride 0.9% 100 ML IVPB SCH ×4 (01:38→23:53)
[2017-04-03] MEDS: metroNIDAZOLE IV 500 mg/100 ml 500 MG/100 ML BAG IVPB SCH ×3 (06:30→22:08)
--- NOTE | 2017-04-03 09:26 | CP.PCM.PN ---
Subjective - Date & Time of Evaluation Date of Evaluation: 04/03/17 Time of Evaluation: 08:00 - Subjective Subjective: General Surgery Note Patient was seen and examined at bedside. Patient was resting comfortably in bed. Patient denies fever, chills, nausea, vomiting and admits to improving RLQ abdominal pain. Patient is tolerating regular diet. Patient has no new complaints. Objective - Vital Signs/Intake and Output Vital Signs (last 24 hours): Temp Pulse Resp BP Pulse Ox 98.5 F 61 18 115/78 97 04/03/17 07:42 04/03/17 07:42 04/03/17 07:42 04/03/17 07:42 04/03/17 07:42 Intake and Output: 04/03/17 04/03/17 06:59 18:59 Intake Total 850 Balance 850 - Medications Medications: Current Medications Acetaminophen (Tylenol 325mg Tab) 650 mg PO Q6 PRN PRN Reason: Headache Docusate Sodium (Colace) 100 mg PO BID [facility] Last Admin: 04/02/17 17:23 Dose: Not Given Enoxaparin Sodium (Lovenox) 30 mg SC 1000,2200 [facility] Last Admin: 04/02/17 21:33 Dose: Not Given Metronidazole (Flagyl) 500 mg in 100 mls @ 100 mls/hr IVPB Q8 [facility] Last Admin: 04/03/17 06:30 Dose: 100 mls/hr Aztreonam 2 gm/ Sodium (Chloride) 100 mls @ 200 mls/hr IVPB Q8H [facility] Last Admin: 04/03/17 08:08 Dose: 200 mls/hr Vancomycin/Sodium Chloride (Vancocin) 1 gm in 200 mls @ 133.333 mls/hr IVPB Q24H [facility] Stop: 04/06/17 00:01 Last Admin: 04/03/17 00:30 Dose: 133.333 mls/hr Metoclopramide HCl (Reglan) 5 mg IVP TIDCC [facility] Last Admin: 04/03/17 08:08 Dose: 5 mg Pantoprazole Sodium (Protonix Inj) 40 mg IVP DAILY [facility] Last Admin: 04/02/17 10:36 Dose: 40 mg Saccharomyces Boulardii (Florastor) 250 mg PO BID [facility] Last Admin: 04/02/17 17:23 Dose: 250 mg Simethicone (Mylicon Chew Tab) 80 mg PO TID PRN PRN Reason: GI distress - Labs Labs: 04/02/17 08:04 04/02/17 08:04 - Constitutional Appears: Well, No Acute Distress - Head Exam Head Exam: ATRAUMATIC - Eye Exam Eye Exam: EOMI, Normal appearance - ENT Exam ENT Exam: Mucous Membranes Moist, Normal Exam - Respiratory Exam Respiratory Exam: Clear to Ausculation Bilateral, NORMAL BREATHING PATTERN - Cardiovascular Exam Cardiovascular Exam: REGULAR RHYTHM, +S1, +S2 - GI/Abdominal Exam GI & Abdominal Exam: Soft, Normal Bowel Sounds Additional comments: Very mild RLQ tenderness - Extremities Exam Extremities Exam: Normal Inspection. absent: Pedal Edema, Tenderness - Neurological Exam Neurological Exam: Alert, Awake, Oriented x3 - Psychiatric Exam Psychiatric exam: Normal Affect, Normal Mood - Skin Skin Exam: Normal Color, Warm Assessment and Plan - Assessment and Plan (Free Text) Assessment: Patient is a 31Y F intra abdominal abscess ~2 week s/p open appendectomy for perforated appendix with recent CT scan showing Interval improvement previously noted pelvic abscess collections however persistent infiltration and/or inflammatory changes within the mesentery of the pelvis again noted. Plan: -As per ID, patient will need IV antibiotics - Continue to monitor abdominal pain Discussed with Dr. Lyons (Covering for Dr. Magdaleno) Jenae Kearney, PGY -1
[2017-04-03] MEDS: Saccharomyces Boulardi 250 mg Cap PO SCH ×2 (10:25→17:40)
[2017-04-03] MEDS: Enoxaparin 30 mg Syringe SC SCH ×3 (10:25→22:11)
[2017-04-04] MEDS: metroNIDAZOLE IV 500 mg/100 ml 500 MG/100 ML BAG IVPB SCH ×3 (05:30→22:28)
--- NOTE | 2017-04-04 08:15 | CP.PCM.PN ---
Subjective - Date & Time of Evaluation Date of Evaluation: 04/04/17 Time of Evaluation: 07:05 - Subjective Subjective: General Surgery Note Patient was seen and examined at bedside. Patient was resting comfortably in bed. Patient denies fever, chills, nausea, vomiting. Patient reports that her abdominal pain has been improving. Patient is tolerating regular diet. Objective - Vital Signs/Intake and Output Vital Signs (last 24 hours): Temp Pulse Resp BP Pulse Ox 98.3 F 72 20 123/75 98 04/04/17 07:57 04/04/17 07:57 04/04/17 07:57 04/04/17 07:57 04/04/17 07:57 Intake and Output: 04/04/17 04/04/17 06:59 18:59 Intake Total 650 Balance 650 - Medications Medications: Current Medications Acetaminophen (Tylenol 325mg Tab) 650 mg PO Q6 PRN PRN Reason: Headache Docusate Sodium (Colace) 100 mg PO BID [facility] Last Admin: 04/03/17 17:41 Dose: Not Given Enoxaparin Sodium (Lovenox) 30 mg SC 1000,2200 [facility] Last Admin: 04/03/17 22:11 Dose: Not Given Metronidazole (Flagyl) 500 mg in 100 mls @ 100 mls/hr IVPB Q8 [facility] Last Admin: 04/04/17 05:30 Dose: 100 mls/hr Aztreonam 2 gm/ Sodium (Chloride) 100 mls @ 200 mls/hr IVPB Q8H [facility] Last Admin: 04/03/17 23:53 Dose: 200 mls/hr Vancomycin HCl 1 gm/ Sodium (Chloride) 250 mls @ 167 mls/hr IVPB Q24H [facility] Stop: 04/06/17 01:30 Last Admin: 04/03/17 23:54 Dose: 167 mls/hr Metoclopramide HCl (Reglan) 5 mg IVP TIDCC [facility] Last Admin: 04/03/17 17:41 Dose: 5 mg Pantoprazole Sodium (Protonix Inj) 40 mg IVP DAILY [facility] Last Admin: 04/03/17 10:25 Dose: 40 mg Saccharomyces Boulardii (Florastor) 250 mg PO BID [facility] Last Admin: 04/03/17 17:40 Dose: 250 mg Simethicone (Mylicon Chew Tab) 80 mg PO TID PRN PRN Reason: GI distress - Labs Labs: 04/02/17 08:04 04/02/17 08:04 - Constitutional Appears: Well, No Acute Distress - Head Exam Head Exam: ATRAUMATIC, NORMAL INSPECTION - Eye Exam Eye Exam: EOMI, Normal appearance - ENT Exam ENT Exam: Mucous Membranes Moist, Normal Exam - Respiratory Exam Respiratory Exam: Clear to Ausculation Bilateral, NORMAL BREATHING PATTERN - Cardiovascular Exam Cardiovascular Exam: REGULAR RHYTHM, +S1, +S2 - GI/Abdominal Exam GI & Abdominal Exam: Soft, Normal Bowel Sounds - Extremities Exam Extremities Exam: Normal Inspection. absent: Calf Tenderness, Pedal Edema, Tenderness - Neurological Exam Neurological Exam: Alert, Awake, Oriented x3 - Psychiatric Exam Psychiatric exam: Normal Affect, Normal Mood - Skin Skin Exam: Dry, Normal Color, Warm Assessment and Plan - Assessment and Plan (Free Text) Assessment: Patient is a 31Y F intra abdominal abscess ~2 week s/p open appendectomy for perforated appendix with recent CT scan showing Interval improvement previously noted pelvic abscess collections however persistent infiltration and/or inflammatory changes within the mesentery of the pelvis again noted. Plan: -As per ID, patient will need long-term IV antibiotics - Continue to monitor abdominal pain Discussed with Dr. Lyons (Covering for Dr. Magdaleno) Jenae Kearney, PGY -1
[2017-04-04] MEDS: Aztreonam 2 GM in Sodium Chloride 0.9% 100 ML IVPB SCH ×3 (08:50→23:51)
[2017-04-04] MEDS: Enoxaparin 30 mg Syringe SC SCH ×2 (10:19→22:28)
[2017-04-04] MEDS: Saccharomyces Boulardi 250 mg Cap PO SCH ×2 (10:19→18:38)
--- NOTE | 2017-04-04 18:36 | CP.PCM.PN ---
Subjective - Date & Time of Evaluation Date of Evaluation: 04/04/17 Time of Evaluation: 08:00 - Subjective Subjective: NO FEVER BELLY SOFT IV RX TO CONTINUE Objective - Vital Signs/Intake and Output Vital Signs (last 24 hours): Temp Pulse Resp BP Pulse Ox 98.6 F 98 H 20 104/69 98 04/04/17 16:00 04/04/17 16:00 04/04/17 16:00 04/04/17 16:00 04/04/17 16:00 Intake and Output: 04/04/17 04/04/17 06:59 18:59 Intake Total 650 460 Balance 650 460 - Medications Medications: Current Medications Acetaminophen (Tylenol 325mg Tab) 650 mg PO Q6 PRN PRN Reason: Headache Last Admin: 04/04/17 12:31 Dose: 650 mg Docusate Sodium (Colace) 100 mg PO BID [facility] Last Admin: 04/04/17 10:19 Dose: Not Given Enoxaparin Sodium (Lovenox) 30 mg SC 1000,2200 [facility] Last Admin: 04/04/17 10:19 Dose: Not Given Metronidazole (Flagyl) 500 mg in 100 mls @ 100 mls/hr IVPB Q8 [facility] Last Admin: 04/04/17 13:14 Dose: 100 mls/hr Aztreonam 2 gm/ Sodium (Chloride) 100 mls @ 200 mls/hr IVPB Q8H [facility] Last Admin: 04/04/17 16:37 Dose: 200 mls/hr Vancomycin HCl 1 gm/ Sodium (Chloride) 250 mls @ 167 mls/hr IVPB Q24H [facility] Stop: 04/06/17 01:30 Last Admin: 04/03/17 23:54 Dose: 167 mls/hr Metoclopramide HCl (Reglan) 5 mg IVP TIDCC [facility] Last Admin: 04/04/17 16:33 Dose: 5 mg Pantoprazole Sodium (Protonix Inj) 40 mg IVP DAILY [facility] Last Admin: 04/04/17 10:19 Dose: 40 mg Saccharomyces Boulardii (Florastor) 250 mg PO BID [facility] Last Admin: 04/04/17 10:19 Dose: 250 mg Simethicone (Mylicon Chew Tab) 80 mg PO TID PRN PRN Reason: GI distress - Labs Labs: 04/02/17 08:04 04/02/17 08:04 - Constitutional Appears: Non-toxic - Head Exam Head Exam: NORMOCEPHALIC - Eye Exam Eye Exam: PERRL - ENT Exam ENT Exam: Mucous Membranes Dry - Neck Exam Neck Exam: absent: Lymphadenopathy - Respiratory Exam Respiratory Exam: Decreased Breath Sounds - Cardiovascular Exam Cardiovascular Exam: REGULAR RHYTHM - GI/Abdominal Exam GI & Abdominal Exam: Distended, Soft
[2017-04-05] MEDS: metroNIDAZOLE IV 500 mg/100 ml 500 MG/100 ML BAG IVPB SCH ×3 (05:01→21:04)
[2017-04-05] MEDS: Aztreonam 2 GM in Sodium Chloride 0.9% 100 ML IVPB SCH ×3 (10:21→23:40)
[2017-04-05] MEDS: Saccharomyces Boulardi 250 mg Cap PO SCH ×2 (10:26→17:36)
--- NOTE | 2017-04-05 10:26 | CP.PCM.PN ---
Subjective - Date & Time of Evaluation Date of Evaluation: 04/05/17 Time of Evaluation: 09:15 - Subjective Subjective: General Surgery Note Patient was seen and examined at bedside in no acute distress. Patient denies fever, chills, nausea, vomiting, diarrhea/constipation and admits to very mild diffuse abdominal tenderness< RLQ. Patient has no new complaints. Objective - Vital Signs/Intake and Output Vital Signs (last 24 hours): Temp Pulse Resp BP Pulse Ox 98.2 F 77 20 107/69 97 04/05/17 07:01 04/05/17 07:01 04/05/17 07:01 04/05/17 07:01 04/05/17 07:01 Intake and Output: 04/05/17 04/05/17 06:59 18:59 Intake Total 1290 750 Balance 1290 750 - Medications Medications: Current Medications Acetaminophen (Tylenol 325mg Tab) 650 mg PO Q6 PRN PRN Reason: Headache Last Admin: 04/04/17 12:31 Dose: 650 mg Docusate Sodium (Colace) 100 mg PO BID [facility] Last Admin: 04/04/17 18:39 Dose: Not Given Metronidazole (Flagyl) 500 mg in 100 mls @ 100 mls/hr IVPB Q8 [facility] Last Admin: 04/05/17 05:01 Dose: 100 mls/hr Aztreonam 2 gm/ Sodium (Chloride) 100 mls @ 200 mls/hr IVPB Q8H [facility] Last Admin: 04/04/17 23:51 Dose: 200 mls/hr Vancomycin HCl 1 gm/ Sodium (Chloride) 250 mls @ 167 mls/hr IVPB Q24H [facility] Stop: 04/06/17 01:30 Last Admin: 04/05/17 00:39 Dose: 167 mls/hr Metoclopramide HCl (Reglan) 5 mg IVP TIDCC [facility] Last Admin: 04/04/17 16:33 Dose: 5 mg Pantoprazole Sodium (Protonix Inj) 40 mg IVP DAILY [facility] Last Admin: 04/04/17 10:19 Dose: 40 mg Saccharomyces Boulardii (Florastor) 250 mg PO BID [facility] Last Admin: 04/04/17 18:38 Dose: 250 mg Simethicone (Mylicon Chew Tab) 80 mg PO TID PRN PRN Reason: GI distress - Labs Labs: 04/02/17 08:04 04/02/17 08:04 - Constitutional Appears: Well, No Acute Distress - Head Exam Head Exam: ATRAUMATIC, NORMAL INSPECTION - Eye Exam Eye Exam: EOMI, Normal appearance - ENT Exam ENT Exam: Mucous Membranes Moist, Normal Exam - Respiratory Exam Respiratory Exam: Clear to Ausculation Bilateral, NORMAL BREATHING PATTERN - Cardiovascular Exam Cardiovascular Exam: REGULAR RHYTHM, +S1, +S2 - GI/Abdominal Exam GI & Abdominal Exam: Soft, Tenderness, Normal Bowel Sounds Additional comments: Very mild diffuse abdominal tenderness < RLQ - Extremities Exam Extremities Exam: Normal Inspection. absent: Calf Tenderness, Pedal Edema, Tenderness - Neurological Exam Neurological Exam: Alert, Awake, Oriented x3 - Psychiatric Exam Psychiatric exam: Normal Affect, Normal Mood - Skin Skin Exam: Dry, Normal Color, Warm Assessment and Plan - Assessment and Plan (Free Text) Assessment: Patient is a 31Y F intra abdominal abscess ~2 week s/p open appendectomy for perforated appendix with recent CT scan showing Interval improvement previously noted pelvic abscess collections however persistent infiltration and/or inflammatory changes within the mesentery of the pelvis again noted. Plan: -Stable -As per ID, patient will need long-term IV antibiotics - Continue to monitor abdominal pain -F/u repeat CT scan for tomorrow -Further medical/discharge management as per Dr. Magdaleno Discussed with Dr. Lyons (Covering for Dr. Magdaleno) Jenae Kearney, PGY -1
[2017-04-05 11:32] LABS: BASO % 1.1 % (0.0-2.0); EOS # 0.2 K/uL (0.0-0.7); EOS % 3.8 % (0.0-4.0); HEMATOCRIT 33.9 % (34.0-47.0); LYMPH # 1.4 K/uL (1.0-4.3); LYMPH % 31.3 % (20.0-40.0); MEAN CELL VOLUME 83.8 fL (81.0-99.0); MEAN CORPUSCULAR HEMOGLOBIN 27.8 pg (27.0-31.0); MEAN CORPUSCULAR HGB CONC 33.2 g/dL (33.0-37.0); MONO # 0.4 K/uL (0.0-0.8); MONO % 8.4 % (0.0-10.0); NRBC % 0.1 % (0.0-2.0); RED CELL DISTRIBUTION WIDTH 12.9 % (11.5-14.5); WHITE BLOOD COUNT 4.3 K/uL (4.8-10.8)
[2017-04-05 11:44] LABS: CHLORIDE 100 mmol/L (98-107); SODIUM 140 mmol/L (132-148)
[2017-04-05 11:46] LABS: BILIRUBIN,TOTAL 0.5 mg/dL (0.2-1.3); CARBON DIOXIDE 28 mmol/L (22-30); GFR AFRICAN-AMERICAN > 60
[2017-04-05 11:47] LABS: ALB/GLOB RATIO 0.8 (1.0-2.1); ALKALINE PHOSPHATASE 62 U/L (38-126); ALT/SGPT 39 U/L (9-52); AST/SGOT 37 U/L (14-36); BLOOD UREA NITROGEN 10 mg/dL (7-17); CALCIUM 8.9 mg/dl (8.6-10.4); GLUCOSE,RANDOM 85 mg/dL (65-105); MAGNESIUM 1.9 mg/dL (1.6-2.3); PHOSPHOROUS 3.2 mg/dL (2.5-4.5); TOTAL PROTEIN 7.3 g/dL (6.3-8.3)
--- NOTE | 2017-04-05 17:34 | PN ---
DATE: 04/05/2017 SUBJECTIVE: Jayda De La O is resting comfortably in bed today. She states she does not have any discernable abdominal pain at this point. She is tolerating her diet well. PHYSICAL EXAMINATION: VITAL SIGNS: Her blood pressure is 107/69, temperature is 82, and pulse is 77 and regular. ABDOMEN: Soft and benign. Her right lower quadrant incision is well healed. LABORATORY DATA: Regarding her labs, her last white blood cell count was measured as 4.3 today, down from 6. ASSESSMENT AND PLAN: She appears to be improving dramatically with nonoperative management of small intraabdominal abscess x2. She will undergo a CT scan tomorrow to document improvement. Once this has been documented, she should go home on IV antibiotics as she has a PICC line in to get a full course. Robert Magdaleno MD
--- NOTE | 2017-04-05 19:38 | CP.PCM.PN ---
Subjective - Date & Time of Evaluation Date of Evaluation: 04/05/17 Time of Evaluation: 09:00 - Subjective Subjective: iv rx renewed Objective - Vital Signs/Intake and Output Vital Signs (last 24 hours): Temp Pulse Resp BP Pulse Ox 98.6 F 84 20 113/74 99 04/05/17 16:32 04/05/17 16:32 04/05/17 16:32 04/05/17 16:32 04/05/17 16:32 Intake and Output: 04/05/17 04/06/17 18:59 06:59 Intake Total 750 Balance 750 - Medications Medications: Current Medications Acetaminophen (Tylenol 325mg Tab) 650 mg PO Q6 PRN PRN Reason: Headache Last Admin: 04/04/17 12:31 Dose: 650 mg Docusate Sodium (Colace) 100 mg PO BID [facility] Last Admin: 04/05/17 17:36 Dose: Not Given Metronidazole (Flagyl) 500 mg in 100 mls @ 100 mls/hr IVPB Q8 [facility] Last Admin: 04/05/17 14:02 Dose: 100 mls/hr Aztreonam 2 gm/ Sodium (Chloride) 100 mls @ 200 mls/hr IVPB Q8H [facility] Last Admin: 04/05/17 16:24 Dose: 200 mls/hr Vancomycin HCl 1 gm/ Sodium (Chloride) 250 mls @ 167 mls/hr IVPB Q24H [facility] Stop: 04/06/17 01:30 Last Admin: 04/05/17 00:39 Dose: 167 mls/hr Metoclopramide HCl (Reglan) 5 mg IVP TIDCC [facility] Last Admin: 04/05/17 16:58 Dose: Not Given Pantoprazole Sodium (Protonix Inj) 40 mg IVP DAILY [facility] Last Admin: 04/05/17 10:26 Dose: 40 mg Saccharomyces Boulardii (Florastor) 250 mg PO BID [facility] Last Admin: 04/05/17 17:36 Dose: 250 mg Simethicone (Mylicon Chew Tab) 80 mg PO TID PRN PRN Reason: GI distress - Labs Labs: 04/05/17 11:19 04/05/17 11:19
[2017-04-06] MEDS: metroNIDAZOLE IV 500 mg/100 ml 500 MG/100 ML BAG IVPB SCH ×3 (05:15→21:23)
[2017-04-06] MEDS: Aztreonam 2 GM in Sodium Chloride 0.9% 100 ML IVPB SCH ×3 (08:20→23:50)
[2017-04-06] MEDS ORDERED: Iohexol 240 (50 ml) PO ONE (09:15)
[2017-04-06] MEDS: Saccharomyces Boulardi 250 mg Cap PO SCH ×2 (10:56→17:13)
--- NOTE | 2017-04-06 16:59 | CT ---
PROCEDURE: CT Abdomen and Pelvis without intravenous contrast HISTORY: Syrveilance of abcess COMPARISON: None. TECHNIQUE: Without contrast.. Contrast Dose: 0 Radiation dose: Total exam DLP = 538.19 mGy-cm. This CT exam was performed using one or more of the following dose reduction techniques: Automated exposure control, adjustment of the mA and/or kV according to patient size, and/or use of iterative reconstruction technique. FINDINGS: LOWER THORAX: 5 mm pleural-based nodule in right middle lobe. Nonspecific. No further evaluation required. LIVER: Unremarkable. No gross lesion or ductal dilatation. GALLBLADDER AND BILE DUCTS: Gallbladder contracted. No calcified stones. PANCREAS: Unremarkable. No gross lesion or ductal dilatation. SPLEEN: Unremarkable. ADRENALS: Unremarkable. No mass. KIDNEYS AND URETERS: Right ureteral stent. Mild right hydronephrosis. No left hydronephrosis. No renal mass or calculus. VASCULATURE: Unremarkable. No aortic aneurysm. BOWEL: No abnormal bowel loops. No bowel obstruction. APPENDIX: Status post appendectomy. PERITONEUM: Abnormal soft tissue density in right superior pelvis and abdominal right lower quadrant. . No discrete abscess identified. Please note that evaluation is limited by the absence of intravenous contrast administration. There is infiltration of the mesenteric in the right lower abdomen. There is no ascites. LYMPH NODES: Unremarkable. No enlarged lymph nodes. BLADDER: Unremarkable. REPRODUCTIVE: Normal uterus. BONES: No acute fracture. OTHER FINDINGS: None. IMPRESSION: No definite abscess identified. Evaluation limited for comparison to prior examination by a the absence of intravenous contrast. Right ureteral stent. Mild right hydronephrosis.
--- NOTE | 2017-04-06 19:08 | CP.PCM.PN ---
Subjective - Date & Time of Evaluation Date of Evaluation: 04/06/17 Time of Evaluation: 10:00 - Subjective Subjective: no abscess on repeat CT consider d/c home with and surgical follow up Objective - Vital Signs/Intake and Output Vital Signs (last 24 hours): Temp Pulse Resp BP Pulse Ox 98.5 F 96 H 20 102/70 100 04/06/17 15:00 04/06/17 15:00 04/06/17 15:00 04/06/17 15:00 04/06/17 15:00 Intake and Output: 04/06/17 04/07/17 18:59 06:59 Intake Total 850 Balance 850 - Medications Medications: Current Medications Acetaminophen (Tylenol 325mg Tab) 650 mg PO Q6 PRN PRN Reason: Headache Last Admin: 04/04/17 12:31 Dose: 650 mg Docusate Sodium (Colace) 100 mg PO BID [facility] Last Admin: 04/06/17 17:14 Dose: Not Given Metronidazole (Flagyl) 500 mg in 100 mls @ 100 mls/hr IVPB Q8 [facility] Last Admin: 04/06/17 14:31 Dose: 100 mls/hr Aztreonam 2 gm/ Sodium (Chloride) 100 mls @ 200 mls/hr IVPB Q8H [facility] Last Admin: 04/06/17 16:08 Dose: 200 mls/hr Metoclopramide HCl (Reglan) 5 mg IVP TIDCC [facility] Last Admin: 04/06/17 17:14 Dose: 5 mg Pantoprazole Sodium (Protonix Inj) 40 mg IVP DAILY [facility] Last Admin: 04/06/17 10:56 Dose: 40 mg Saccharomyces Boulardii (Florastor) 250 mg PO BID [facility] Last Admin: 04/06/17 17:13 Dose: 250 mg Simethicone (Mylicon Chew Tab) 80 mg PO TID PRN PRN Reason: GI distress - Labs Labs: 04/05/17 11:19 04/05/17 11:19 - Constitutional Appears: Non-toxic, Chronically Ill - Head Exam Head Exam: NORMOCEPHALIC - Eye Exam Eye Exam: PERRL - ENT Exam ENT Exam: Mucous Membranes Dry - Neck Exam Neck Exam: absent: Lymphadenopathy - Respiratory Exam Respiratory Exam: Decreased Breath Sounds, Clear to Ausculation Bilateral - Cardiovascular Exam Cardiovascular Exam: REGULAR RHYTHM - GI/Abdominal Exam GI & Abdominal Exam: Distended, Soft - Rectal Exam Rectal Exam: Deferred - Exam Exam: NORMAL INSPECTION Assessment and Plan - Assessment and Plan (Free Text) Plan: abscess rewsolved right hydro gu follow up
[2017-04-07 01:11] VITALS: O2SAT 99
[2017-04-07 07:26] VITALS: BP 101/70; PULSE 70; RESP 20; TEMP 97.9
[2017-04-07] MEDS: Aztreonam 2 GM in Sodium Chloride 0.9% 100 ML IVPB SCH (08:19)
[2017-04-07] MEDS: Saccharomyces Boulardi 250 mg Cap PO SCH (09:22)
--- NOTE | 2017-04-07 12:35 | CP.PCM.PN ---
Subjective - Date & Time of Evaluation Date of Evaluation: 04/07/17 Time of Evaluation: 12:32 - Subjective Subjective: Pt seen by Dr. Magdaleno today. Objective - Vital Signs/Intake and Output Vital Signs (last 24 hours): Temp Pulse Resp BP Pulse Ox 97.9 F 70 20 101/70 99 04/07/17 07:19 04/07/17 07:19 04/07/17 07:19 04/07/17 07:19 04/07/17 07:19 Intake and Output: 04/07/17 04/07/17 06:59 18:59 Intake Total 1140 Balance 1140 - Medications Medications: Current Medications Acetaminophen (Tylenol 325mg Tab) 650 mg PO Q6 PRN PRN Reason: Headache Last Admin: 04/04/17 12:31 Dose: 650 mg Docusate Sodium (Colace) 100 mg PO BID [facility] Last Admin: 04/07/17 09:27 Dose: Not Given Metronidazole (Flagyl) 500 mg in 100 mls @ 100 mls/hr IVPB Q8 [facility] Last Admin: 04/06/17 21:23 Dose: 100 mls/hr Aztreonam 2 gm/ Sodium (Chloride) 100 mls @ 200 mls/hr IVPB Q8H [facility] Last Admin: 04/07/17 08:19 Dose: 200 mls/hr Metoclopramide HCl (Reglan) 5 mg IVP TIDCC [facility] Last Admin: 04/07/17 12:27 Dose: 5 mg Pantoprazole Sodium (Protonix Inj) 40 mg IVP DAILY [facility] Last Admin: 04/07/17 09:22 Dose: 40 mg Saccharomyces Boulardii (Florastor) 250 mg PO BID [facility] Last Admin: 04/07/17 09:22 Dose: 250 mg Simethicone (Mylicon Chew Tab) 80 mg PO TID PRN PRN Reason: GI distress - Labs Labs: 04/05/17 11:19 04/05/17 11:19 Assessment and Plan - Assessment and Plan (Free Text) Plan: Rx for vancomycin 1 gm iv daily and Aztreonam 2 gm q8h for 10 days, Vanco trough on sunday weekly as per Dr. reynolds.
[2017-04-07] MEDS: metroNIDAZOLE IV 500 mg/100 ml 500 MG/100 ML BAG IVPB SCH (13:19)
== END 2017-04-07 14:45 | disposition home or self-care (01) | DRG 580 ==
LOC: C.ER 11:18 → C.9OBSV 11:30 → OBSVTOIN 18:01 → C.9E 18:01 → C.3T 19:10
PROVIDERS: ADMIT Surgery; ATTEND Surgery
PROC: 02HV33Z Insertion of Infusion Device into Superior Vena Cava, Percutaneous Approach (ICD-10-PCS; principal; 2017-04-01)
DX: T81.4XXA Infection following a procedure, initial encounter (principal); K65.1 Peritoneal abscess; N13.30 Unspecified hydronephrosis; Y83.8 Other surgical procedures as the cause of abnormal reaction of the patient, or of later complication, without mention of misadventure at the time of the procedure

== ENCOUNTER 2017-05-19 15:54 | Emergency (ER) | payer OTHER ==
[2017-05-19 16:06] VITALS: O2SAT 100
[2017-05-19] MEDS ORDERED: Lactated Ringer's 1,000 ML IVB STA (16:33)
[2017-05-19] MEDS ORDERED: Lactated Ringer's 1,000 ML ONE (16:42)
[2017-05-19 16:46] LABS: BASO % 0.5 % (0.0-2.0); EOS # 0.1 K/uL (0.0-0.7); EOS % 1.8 % (0.0-4.0); HEMATOCRIT 35.6 % (34.0-47.0); LYMPH % 15.2 % (20.0-40.0); MEAN CELL VOLUME 86.1 fL (81.0-99.0); MEAN CORPUSCULAR HEMOGLOBIN 29.7 pg (27.0-31.0); MEAN CORPUSCULAR HGB CONC 34.5 g/dL (33.0-37.0); MEAN PLATELET VOLUME 9.4 fL (7.2-11.7); MONO # 0.5 K/uL (0.0-0.8); MONO % 6.6 % (0.0-10.0); RED CELL DISTRIBUTION WIDTH 14.4 % (11.5-14.5); WHITE BLOOD COUNT 6.8 K/uL (4.8-10.8)
[2017-05-19 16:58] LABS: CHLORIDE 99 mmol/L (98-107)
[2017-05-19 16:59] LABS: POTASSIUM 3.5 mmol/L (3.6-5.2); SODIUM 136 mmol/L (132-148)
[2017-05-19 17:01] LABS: GFR AFRICAN-AMERICAN > 60
[2017-05-19 17:02] LABS: RBC URINE 418 /hpf (0-3); URINE BACTERIA MOD (<OCC); URINE BILIRUBIN NEGATIVE (NEGATIVE); URINE BLOOD 3+ (NEGATIVE); URINE GLUCOSE (UA) NORMAL (Normal); URINE KETONE NEGATIVE (NEGATIVE); URINE LEUKOCYTE ESTERASE TRACE Leu/uL (Negative); URINE PROTEIN 1+ mg/dL (NEGATIVE); URINE UROBILINOGEN NORMAL mg/dL (0.2-1.0); WBC URINE 78 /hpf (0-5)
[2017-05-19 17:02] LABS: ALKALINE PHOSPHATASE 51 U/L (38-126); ALT/SGPT 119 U/L (9-52); AST/SGOT 85 U/L (14-36); BILIRUBIN,TOTAL 1.1 mg/dL (0.2-1.3); BLOOD UREA NITROGEN 10 mg/dL (7-17); CALCIUM 9.2 mg/dl (8.6-10.4); CARBON DIOXIDE 26 mmol/L (22-30); GLUCOSE,RANDOM 78 mg/dL (65-105); TOTAL PROTEIN 8.6 g/dL (6.3-8.3)
[2017-05-19 17:03] LABS: URINE COLOR LIGHT RED (YELLOW)
[2017-05-19] MEDS ORDERED: Potassium Chloride 20 mEq ER Tab PO STA (17:24)
--- NOTE | 2017-05-19 17:27 | C.PDOC ---
Time Seen by Provider: 05/19/17 16:09 Chief Complaint (Nursing): Abdominal Pain History Per: Patient Onset/Duration Of Symptoms: Days (6), Waxing/Waning Current Symptoms Are (Timing): Still Present Severity: Moderate Location Of Pain/Discomfort: LLQ, Suprapubic Quality Of Discomfort: Unable To Describe, Cramping Associated Symptoms: Diarrhea Exacerbating Factors: Food Alleviating Factors: None Recent travel outside of the [place]: No Additional History Per: Prior Records Last Menstral Period: Now Past Medical History Reviewed: Historical Data, Nursing Documentation, Vital Signs Vital Signs: Last Vital Signs Temp 98.8 F 05/19/17 16:03 Pulse 95 H 05/19/17 16:03 Resp 18 05/19/17 16:03 BP 99/69 L 05/19/17 16:03 Pulse Ox 100 05/19/17 16:03 - Medical History PMH: No Chronic Diseases Surgical History: Appendectomy - [facility] Procedures DILATION OF RIGHT URETER WITH INTRALUMINAL DEVICE, ENDO (03/20/17) DRAINAGE OF PERITONEAL CAVITY, OPEN APPROACH (03/14/17) FLUOROSCOPY OF KIDNEY, URETER, BLADDER, R USING OTH CONTRAST (03/20/17) INSERTION OF INFUSION DEV INTO SUP VENA CAVA, PERC APPROACH (03/28/17) RESECTION OF APPENDIX, OPEN APPROACH (03/14/17) Family History: States: Unknown Family Hx - Social History Hx Alcohol Use: No Hx Substance Use: No - Immunization History Hx Tetanus Toxoid Vaccination: No Hx Influenza Vaccination: No Hx Pneumococcal Vaccination: Yes Review Of Systems Except As Marked, All Systems Reviewed And Found Negative. Constitutional: Negative for: Fever Cardiovascular: Negative for: Chest Pain Respiratory: Negative for: Shortness of Breath Gastrointestinal: Positive for: Abdominal Pain, Diarrhea (watery). Negative for : Vomiting, Melena, Hematochezia, Hematemesis Genitourinary: Negative for: Dysuria Musculoskeletal: Negative for: Neck Pain, Back Pain Skin: Negative for: Rash Neurological: Negative for: Weakness, Numbness Physical Exam - Physical Exam Appears: Non-toxic, No Acute Distress Skin: Normal Color, Warm, Dry, No Rash Head: Atraumatic, Normacephalic Eye(s): bilateral: Normal Inspection, PERRL, EOMI Oral Mucosa: Moist Neck: Normal ROM, Supple Cardiovascular: Rhythm Regular Respiratory: Normal Breath Sounds, No Accessory Muscle Use Gastrointestinal/Abdominal: Soft, Tenderness (mild suprapubic), No Distention, No Guarding, No Rebound Back: No CVA Tenderness Extremity: Normal ROM Neurological/Psych: Oriented x3, Normal Motor, Normal Sensation ED Course And Treatment - Laboratory Results Result Diagrams: 05/19/17 16:40 05/19/17 16:40 Urine POC: Negative O2 Sat by Pulse Oximetry: 100 Pulse Ox Interpretation: Normal Progress - Interventions Interventions:: Observation, Intravenous fluid - Medications Administered Intravenous: Antiemetic, NSAID - Data Reviewed Data Reviewed: Lab, Old records - Patient Status Patient status: Mostly improved - Continuity of Care Discussed patient case with:: Patient, Family-HIPPA compliant, ED Nurse - Patient Plan Patient Plan: Discharge, F/U with PCP, Continue present meds Disposition Counseled Patient/Family Regarding: Studies Performed, Diagnosis, Need For Followup, Rx Given - Disposition Referrals: Michael Zhou MD [Staff Provider] - Disposition: HOME/ ROUTINE Disposition Time: 17:29 Condition: IMPROVED Additional Instructions: Drink plenty of fluids (Gatorade). Follow up with your doctor this week for further evaluation and treatment. Return to the ER if you develop fever, vomiting, bloody stools, worsening of symptoms or if you have any other concerns. Prescriptions: Bismuth Subsalicylate [Pepto Bismol] 2 tab PO Q1 PRN #16 ctb PRN Reason: Diarrhea L.acidoph,Paracasei, B.lactis [Probiotic] 1 each PO BID #60 capsule Instructions: Acute Diarrhea (ED) Forms: Holla@Me (Thai) Print Language: UGANDAN - Clinical Impression Clinical Impression: Abdominal pain, Diarrhea
[2017-05-19] MEDS ORDERED: Potassium Chloride 20 mEq ER Tab PO ONE (17:30)
[2017-05-19 17:41] VITALS: BP 98/66; PULSE 81; RESP 16; TEMP 98.4
== END 2017-05-19 18:03 | disposition home or self-care (01) ==
LOC: C.ER 15:54
DX: R10.30 Lower abdominal pain, unspecified (principal); R19.7 Diarrhea, unspecified; E87.6 Hypokalemia
CPT/HCPCS: 80053; 81001; 83690; 84703; 85025; 96374; 96375; 99284; J1885; J2405; J7120